=== PATIENT | male | born 1985 | race Caucasian/White ===

== ENCOUNTER 2025-05-19 10:56 | Inpatient (IN) | payer SELFPAY ==
[2025-05-19] VITALS (22 sets, daily range): BP systolic 97–130; BP diastolic 53–90; PULSE 105–126; RESP 17–30; TEMP 36.6–37.5; O2SAT 97–100; BMI 29.1
--- NOTE | ~2025-05-19 | US_ITS ---
EXAMINATION: US scrotum doppler, 05/23/2025 16:00 CDT HISTORY: Scrotal Pain Comparison: None Technique: Herrera-scale and color Doppler images were obtained of the testes with spectral analysis to document arterial and venous flow. Findings: Right Testicle:Right testicle 5.9 x 2.7 x 3.5 cm, normal parenchyma, normal flow. Right Epidiymis:Unremarkable. Normal flow. Left Testicle: Left testicle 5 x 3.2 x 4.3 cm, normal parenchyma, normal flow. Left Epidiymis: Unremarkable. Normal flow. Hydrocele: None . Varicocele: None Scrotum: Unremarkable. No skin thickening. Impression: No acute abnormality. Reviewed, dictated and finalized at location P. Impression: No acute abnormality.
--- NOTE | ~2025-05-19 | CT_ITS ---
CT ABDOMEN AND PELVIS WITHOUT CONTRAST Clinical History: abd pain, nause and vomiting Comparison: None Technique: Unenhanced axial images lung bases to symphysis pubis Coronal, sagittal reformats CT images acquired with automatic exposure control for dose reduction DLP: 1329 mGy-cm Findings: Without intravenous contrast, sensitivity for detecting visceral parenchymal abnormalities decreased. Lung bases: Clear. Visualized heart and pericardium: Unremarkable. Liver: Unremarkable. Gallbladder: Unremarkable. Spleen: Unremarkable. Pancreas: Extensive peripancreatic stranding and fluid. Adrenal glands: Unremarkable. Kidneys: Right kidney- No hydronephrosis. No renal stones. Left kidney- No hydronephrosis. No renal stones. Distal esophagus/stomach: Distal gastric wall thickening. Small bowel loops: Proximal duodenal wall thickening. Colon: Normal caliber and wall thickness. Normal RLQ appendix. Nodes: No enlarged nodes. Peritoneum: No ascites. No free intraperitoneal air. Urinary bladder: Unremarkable. Prostate: Unremarkable. Bones: No acute bony abnormality. Soft tissues: Unremarkable. Unopacified abdominal aorta: No aneurysmal dilatation. IMPRESSION: 1. Severe pancreatitis and/or gastroduodenitis. Reviewed, dictated and finalized at location R.
--- NOTE | ~2025-05-19 | XR_ITS ---
Examination: XR chest 1V portable Clinical History: tachypnea Comparison: None Technique: Portable AP Findings: Heart size mildly enlarged. Lungs clear. No acute bony abnormality. IMPRESSION: 1. No acute cardiopulmonary findings given portable technique. Reviewed, dictated and finalized at location R.
--- NOTE | ~2025-05-19 | XR_ITS ---
EXAMINATION: XR abdomen/kub 1V, 05/21/2025 13:03 CDT HISTORY: Constipation COMPARISON: No comparisons available. Technique: 3 view. Findings: Minimal fecal content, diminished air throughout the bowel which is nonspecific No free air. No abnormal calcifications No acute osseous abnormality. Impression: 1. Nonspecific bowel gas pattern Reviewed, dictated and finalized at location P. Impression: 1. Nonspecific bowel gas pattern
--- NOTE | 2025-05-19 11:00 | ED.RECABL ---
HPI - Recheck/Abnormal Lab/Rx General Chief Complaint: Recheck/Abnormal Lab/Rx Stated Complaint: hyperglycemia, N/V, abd pain History of Present Illness HPI narrative: 39-year-old male with history type 2 diabetes and fatty liver disease presenting to the emergency department via EMS for 4 days of nausea vomiting decreased oral intake and rapid breathing. Patient has had previous episodes like this before and has been hospitalized for DKA. Patient is not insulin-dependent and been trying to control his diabetes with diet. Endorses not feeling well and very thirsty with increased urination increased thirst. Does not take any medications. No abdominal surgical history but is complaining of abdominal pain diffusely. Was otherwise in his normal state of health, he was visiting his family members and in town for [place]. Related Data Allergies Allergy/AdvReac Type Severity Reaction Status Date / Time Cephalosporins Allergy Unknown Verified 07/04/14 09:20 Review of Systems Review of Systems: As reviewed above in HPI [facility] Past Medical History Medical History Thyroid dysfunction HLD (hyperlipidemia) DM2 (diabetes mellitus, type 2) Family History Family History Father Family history of diabetes mellitus in first degree relative Mother Family history of diabetes mellitus in first degree relative Family history of malignant neoplasm of breast in first degree relative Grandparent Family history of lung disease Social History Social History Smoking status: Former smoker Alcohol intake: current Exam Narrative: GENERAL: Ill-appearing, dyspneic, awake and answering questions, thirsty HEAD: Normocephalic, atraumatic EYES: [PERRLA and EOMI.] ENT: Nares clear, no rhinorrhea or epistaxis. Mucous membranes are dry. NECK: Supple. CHEST: Deep [place]maul respirations with tachypnea, no wheezing or rhonchi HEART: Tachycardic rate, regular rhythm. No murmur heard. [Normal peripheral pulses.] ABDOMEN: Mildly distended, soft, tender to palpation diffusely, no rigidity or guarding EXTREMITIES: Normal range of motion. [No edema.] SKIN: Cool extremities but dry, no rashes NEURO: [No focal deficits]. Alert and oriented [x3.] PSYCH: [Normal mood and affect.] Course Vital Signs Vital signs: Vital Signs Temperature 36.6 C 05/19/25 10:58 Pulse Rate 114 H 05/19/25 10:58 Respiratory Rate 20 05/19/25 10:58 Blood Pressure 102/63 05/19/25 10:58 Pulse Oximetry 100 05/19/25 10:58 Oxygen Delivery Room Air 05/19/25 10:58 Temperature 36.6 C 05/19/25 10:58 Pulse Rate 120 H 05/19/25 13:15 Respiratory Rate 27 H 05/19/25 13:15 Blood Pressure 115/68 05/19/25 13:15 Pulse Oximetry 100 05/19/25 13:04 Oxygen Delivery Room Air 05/19/25 10:58 Oxygen Flow Rate 2 05/19/25 13:00 MDM - Recheck/Abnormal Lab/Rx MDM Narrative Medical decision making narrative: 39-year-old male with history type 2 diabetes and fatty liver disease presenting to the emergency department via EMS for 4 days of nausea vomiting decreased oral intake and rapid breathing. Patient has had previous episodes like this before and has been hospitalized for DKA. Patient is not insulin-dependent and been trying to control his diabetes with diet. Endorses not feeling well and very thirsty with increased urination increased thirst. Does not take any medications. No abdominal surgical history but is complaining of abdominal pain diffusely. Was otherwise in his normal state of health, he was visiting his family members and in [facility]. Patient is very ill appearing and has deep Kussmaul respirations and tachypnea with tachycardia. Appears very dry and dehydrated. Suspect DKA versus HHS but his mentation is normal at this time. Placed on cardiac monitoring given supplemental oxygen for comfort. 3 L of fluid initiated given his weight, laboratory studies and VBG, beta hydroxybutyrate and imaging ordered. EKG chest x-ray and CT abdomen pelvis given his abdominal pain. Zofran provided for nausea. Patient's pH is 6.9 with severe metabolic acidosis consistent with DKA. Glucose 798 on the labs. Potassium 7.0 with acute renal failure creatinine 2.7. Patient given total of 4 L of fluid resuscitation between here and EMS. Started on high-dose fluids LR. Insulin given bolus dose with drip and started, Lokelma, calcium gluconate provided. Hemodynamically remained stable. Spoke to Dr. Griffin over the phone regarding patient's renal failure and potassium elevation with concerned that he might require dialysis as he is not making much urine. Recommending repeating labs after fluids and insulin and trending. PH on new VBG after fluids improved to 7.1 and relayed to the trial consultant who will follow in the ICU. Patient is urinating now albeit minimal output. Spoke to the regulatory compliance coordinator Dr. Martinez and the hospitalist Marguerite who accepted the patient to the ICU at this time. CT scan reviewed shows significant fat stranding in the abdomen with possible pancreatitis verses gastroenteritis. No abscess formation. Lipid panel and lipase sent. Patient admitted to the ICU with insulin started. Improved on reassessment. Spoke to family members made them aware of patient's admission and plan of care. Patient updated on the plan and comfortable with admission at this time. Medical Records Attestation: I reviewed the patient's medical records. Lab Data Attestation: I reviewed the patient's lab results. 05/19/25 11:18 05/19/25 11:18 Labs: Lab Results 05/19/25 05/19/25 05/19/25 Range/Units 11:10 11:18 11:48 WBC 9.8 (4.5-10.0) K/mm3 RBC 5.04 (4.6-6.20) M/mm3 Hgb 14.3 (14.0-18.0) g/dL Hct 44.5 (42.0-52.0) % MCV 88.3 (80-100) fl MCH 29.9 (26-34) pg MCHC 34.4 (32-36) g/dl RDW 14.3 (11.5-14.5) % Plt Count 482 H (150-375) k/mm3 MPV 10.1 (7.4-10.4) fl Immature Gran % (Auto) Not Reportable Neut % (Auto) Not Reportable Lymph % (Auto) Not Reportable Gila % (Auto) Not Reportable Eos % (Auto) Not Reportable Baso % (Auto) Not Reportable Lymph # (Auto) Not Reportable Gila # (Auto) Not Reportable Eos # (Auto) Not Reportable Baso # (Auto) Not Reportable Abs Immat Gran (auto) Not Reportable Absolute Neuts (auto) Not Reportable Absolute Nucleated RBC Not Reportable Total Counted 100 Neutrophils % (Manual) 42 L (46-73) % Band Neutrophils % 29 H (0-6) % Lymphocytes % (Manual) 21 (18-44) % Monocytes % (Manual) 8 (3-9) % Nucleated RBC % Not Reportable Abs Neuts (Manual) 6.95 H (1.3-6.7) K/mm3 Abs Lymphs (Manual) 2.05 (1.1-4.5) K/mm3 Abs Monocytes (Manual) 0.78 (0.1-0.90) K/mm3 Platelet Estimate Increased (Adequate) Anisocytosis Occasional Schistocytes None seen Sodium 127 L (137-145) mmol/L Potassium 7.0 H* (3.4-5.0) mmol/L Chloride 93 L (98-107) mmol/L Carbon Dioxide < 5 L (22-30) mmol/L Anion Gap (4-12) mmol/L BUN 20 (9-20) mg/dL Creatinine 2.74 H (0.7-1.3) mg/dL Estim Creat Clear Calc 39 ml/min Estimated GFR 26 L (59 - ) Glucose 798 H* (65-110) mg/dL POC Capillary Glucose > 500 H* (65-105) mg/dl Hemoglobin A1c 11.7 H (<5.7) % Calcium 7.7 L (8.4-10.2) mg/dL Phosphorus 9.1 H (2.5-4.5) mg/dL Magnesium 1.7 (1.6-2.3) mg/dL Total Bilirubin 0.6 (0.2-1.3) mg/dL AST 28 (17-59) U/L ALT 21 (6-50) U/L Alkaline Phosphatase 102 (38-126) U/L Total Protein 7.0 (6.3-8.2) g/dL Albumin 3.7 (3.5-5.1) g/dL Triglycerides (<150) mg/dL Cholesterol (0-200) mg/dL LDL Cholesterol Direct mg/dL HDL Direct Lipase Beta-Hydroxybutyrate/Acetoacetate 8.65 H (0.02-0.27) mmol/L Urine Color Yellow (Yellow) Urine Appearance Cloudy H (Clear) Urine pH 5.0 (5.0-9.0) Ur Specific [place] 1.024 (1.001-1.035) Urine Protein 3+ H (Negative) mg/dL Urine Glucose (UA) 3+ H (Negative) mg/dL Urine Ketones 3+ H (Negative) mg/dL Ur Blood (Man) 2+ H (Negative) Urine Nitrate Negative (Negative) Urine Bilirubin Negative (Negative) Urine Urobilinogen 0.2 (<2.0) mg/dL Add Ur Microanalysis Reviewed Leukocyte Esterase Rfl Negative (Negative) ADELA/UL Urine RBC 0-2 (0-2) /hpf Urine WBC 0-5 (0-3) /hpf Ur Squamous Epith Cells Few (Few) /hpf Urine Bacteria None seen /hpf Urine Casts 6-10 05/19/25 05/19/25 05/19/25 Range/Units 12:26 12:26 12:26 WBC (4.5-10.0) K/mm3 RBC (4.6-6.20) M/mm3 Hgb (14.0-18.0) g/dL Hct (42.0-52.0) % MCV (80-100) fl MCH (26-34) pg MCHC (32-36) g/dl RDW (11.5-14.5) % Plt Count (150-375) k/mm3 MPV (7.4-10.4) fl Immature Gran % (Auto) Neut % (Auto) Lymph % (Auto) Gila % (Auto) Eos % (Auto) Baso % (Auto) Lymph # (Auto) [place]ila # (Auto) Eos # (Auto) Baso # (Auto) Abs Immat Gran (auto) Absolute Neuts (auto) Absolute Nucleated RBC Total Counted Neutrophils % (Manual) (46-73) % Band Neutrophils % (0-6) % Lymphocytes % (Manual) (18-44) % Monocytes % (Manual) (3-9) % Nucleated RBC % Abs Neuts (Manual) (1.3-6.7) K/mm3 Abs Lymphs (Manual) (1.1-4.5) K/mm3 Abs Monocytes (Manual) (0.1-0.90) K/mm3 Platelet Estimate (Adequate) Anisocytosis Schistocytes Sodium Pending (137-145) mmol/L Potassium Pending Cancelled (3.4-5.0) mmol/L Chloride Pending (98-107) mmol/L Carbon Dioxide Pending (22-30) mmol/L Anion Gap Pending (4-12) mmol/L BUN Pending (9-20) mg/dL Creatinine Pending (0.7-1.3) mg/dL Estim Creat Clear Calc Pending ml/min Estimated GFR Pending (59 - ) Glucose Pending (65-110) mg/dL POC Capillary Glucose (65-105) mg/dl Hemoglobin A1c (<5.7) % Calcium Pending (8.4-10.2) mg/dL Phosphorus (2.5-4.5) mg/dL Magnesium (1.6-2.3) mg/dL Total Bilirubin (0.2-1.3) mg/dL AST (17-59) U/L ALT (6-50) U/L Alkaline Phosphatase (38-126) U/L Total Protein (6.3-8.2) g/dL Albumin (3.5-5.1) g/dL Triglycerides > 2625 H (<150) mg/dL Cholesterol 456 H (0-200) mg/dL LDL Cholesterol Direct 100 mg/dL HDL Direct TNP Lipase Pending Cancelled Beta-Hydroxybutyrate/Acetoacetate (0.02-0.27) mmol/L Urine Color (Yellow) Urine Appearance (Clear) Urine pH (5.0-9.0) Ur Specific [place] (1.001-1.035) Urine Protein (Negative) mg/dL Urine Glucose (UA) (Negative) mg/dL Urine Ketones (Negative) mg/dL Ur Blood (Man) (Negative) Urine Nitrate (Negative) Urine Bilirubin (Negative) Urine Urobilinogen (<2.0) mg/dL Add Ur Microanalysis Leukocyte Esterase Rfl (Negative) ADELA/UL Urine RBC (0-2) /hpf Urine WBC (0-3) /hpf Ur Squamous Epith Cells (Few) /hpf Urine Bacteria /hpf Urine Casts ABG Data ABG results: 05/19/25 05/19/25 11:18 12:26 VBG pH 6.969 L* 7.113 L* VBG pCO2 27.8 L* 30.8 L* VBG pO2 < 27.0 L < 27.0 L VBG HCO3 6.2 L 9.6 L O2 Delivery Device Nasal cannula Nasal cannula O2 Liters/Min 2.0 3.0 FiO2 28 32 Attestation: I personally reviewed and interpreted this ABG as follows: Interpretation: Severe metabolic acidosis. Improved on repeat Imaging Data Attestation: I personally reviewed and interpreted this imaging study as follows: My impression: Impressions Chest X-Ray 05/19/25 12:24 IMPRESSION: 1. No acute cardiopulmonary findings given portable technique. Abdomen/Pelvis CT 05/19/25 12:43 IMPRESSION: 1. Severe pancreatitis and/or gastroduodenitis. Critical Care Time Critical Care Time Critical Care Time: Yes Total Critical Care Time: 105 Discharge Plan Discharge Clinical Impression: Hyperkalemia, Hypertriglyceridemia, Pancreatitis, Acute dehydration DKA (diabetic ketoacidosis) Qualifiers: Diabetes mellitus type: type 2 Diabetes mellitus complication detail: without coma Qualified Code(s): E11.10 - Type 2 diabetes mellitus with ketoacidosis without coma HLD (hyperlipidemia) Qualifiers: Hyperlipidemia type: unspecified Qualified Code(s): E78.5 - Hyperlipidemia, unspecified Patient Disposition: Still a Patient Condition: Serious Time of Disposition: 14:03
[2025-05-19] MEDS: ONDANSETRON INJ 4 MG/2 ML VIAL IV PUSH (11:10)
[2025-05-19] MEDS: LACTATED RINGERS 1,000 ML 999 ML IV CONT ×3 (11:11→11:26)
[2025-05-19 11:21] LABS: Fractional Inspired Oxygen 28 %; HCO3 VBG 6.2 mEq/l (24.0-30.0)
[2025-05-19 11:24] LABS: Liters per Minute 2.0 LPM; PCO2 VBG 27.8 mmHg (42.0-48.0); PO2 VBG < 27.0 mmHg (35.0-45.0); pH VBG 6.969 (7.300-7.400)
[2025-05-19 11:25] LABS: Hematocrit 44.5 % (42.0-52.0); Mean Corpuscular Volume 88.3 fl (80-100); Platelet Count Result 482 k/mm3 (150-375); Red Blood Count 5.04 M/mm3 (4.6-6.20); White Blood Count 9.8 K/mm3 (4.5-10.0)
[2025-05-19] MEDS: SODIUM BICARBONATE 8.4% 50 MEQ/50 ML SYRINGE 150 MEQ IV PUSH (11:32)
--- NOTE | 2025-05-19 11:37 | ECG_ITS ---
Test Date: 2025-05-19 12:05:02 Measurements Intervals [place] Rate: 103 P: 57 WV: 145 QRS: 7 QRSD: 98 T: 20 QT: 337 QTc: 441 Interpretive Statements SINUS TACHYCARDIA DELAYED PRECORDIAL R/S TRANSITION CONSIDER INFERIOR INFARCT, AGE INDETERMINATE BASELINE ARTIFACT- III, V3 ABNORMAL ECG No previous ECG available for comparison Electronically Signed On 05-19-2025 14:01:51 CDT by Alcides Jay D.O.
[2025-05-19 11:57] LABS: Hemoglobin 14.3 g/dL (14.0-18.0)
[2025-05-19 11:58] LABS: Anisocytosis Occasional; Band Neutrophils Percent 29 % (0-6); Lymphocytes Absolute Manual 2.05 K/mm3 (1.1-4.5); Lymphocytes Percent Manual 21 % (18-44); Mean Corpuscular HGB Conc 34.4 g/dl (32-36); Mean Corpuscular Hemoglobin 29.9 pg (26-34); Monocytes Absolute Manual 0.78 K/mm3 (0.1-0.90); Monocytes Percent Manual 8 % (3-9); Neutrophils Absolute Manual 6.95 K/mm3 (1.3-6.7); Neutrophils Percent Manual 42 % (46-73); Schistocytes None Seen; Total Cells Counted 100
[2025-05-19 12:01] LABS: Beta-Hydroxybutyrate/Acetoace. 8.65 mmol/L (0.02-0.27)
[2025-05-19 12:02] LABS: Hemoglobin A1C 11.7 % (<5.7)
[2025-05-19 12:12] LABS: Alanine Aminotransferase 21 U/L (6-50); Albumin Level 3.7 g/dL (3.5-5.1); Alkaline Phosphatase 102 U/L (38-126); Aspartate Amino Transferase 28 U/L (17-59); Bilirubin,Total 0.6 mg/dL (0.2-1.3); Blood Urea Nitrogen 20 mg/dL (9-20); Calcium 7.7 mg/dL (8.4-10.2); Carbon Dioxide < 5 mmol/L (22-30); Chloride 93 mmol/L (98-107); Estimated CRCL calculation 39 ml/min; Estimated Glomerular Filt Rate 26; Glucose 798 mg/dL (65-110); Potassium 7.0 mmol/L (3.4-5.0); Sodium 127 mmol/L (137-145); Total Protein 7.0 g/dL (6.3-8.2)
[2025-05-19 12:18] LABS: Magnesium 1.7 mg/dL (1.6-2.3)
[2025-05-19 12:29] LABS: Fractional Inspired Oxygen 32 %; HCO3 VBG 9.6 mEq/l (24.0-30.0)
[2025-05-19 12:29] LABS: Add Urine Microscopic? YES; Appearance Urine Cloudy (Clear); Glucose Urine UA 3+ mg/dL (Negative); Leukocyte Esterase Ur Negative LEU/UL (Negative); Need Manual Microscopic Reviewed; Nitrate Urine Negative (Negative); Specific Grav Ur 1.024 (1.001-1.035)
[2025-05-19 12:30] LABS: pH VBG 7.113 (7.300-7.400)
[2025-05-19 12:31] LABS: Liters per Minute 3.0 LPM; PCO2 VBG 30.8 mmHg (42.0-48.0); PO2 VBG < 27.0 mmHg (35.0-45.0)
[2025-05-19] MEDS: CALCIUM GLUCONATE 1,000 MG/10 ML VIAL 1000 MG IV PUSH (12:45)
[2025-05-19] MEDS: SODIUM ZIRCONIUM CYCLOSILICATE 10 GM POWD.PACK PO (12:46)
[2025-05-19] MEDS: LACTATED RINGERS 1,000 ML 200 ML IV CONT (12:49)
[2025-05-19] MEDS: INSULIN HUMAN REGULAR (*BKC) 100 UNITS/ML 10 UNITS IV PUSH (12:49)
[2025-05-19] MEDS: INSULIN HUMAN REGULAR (*BKC) 100 UNITS in SODIUM CHLORIDE 0.9% IV 99 ML 10.5 UNITS IV CONT (12:51)
--- NOTE | 2025-05-19 13:17 | P.CONIN_ITS ---
Assessment and Plan Assessment and plan (1) DKA (diabetic ketoacidosis): Qualifiers: Diabetes mellitus type: type 2 Diabetes mellitus complication detail: w ithout coma Qualified Code(s): E11.10 - Type 2 diabetes mellitus with ketoacidosis without coma Code(s): E11.10 - Type 2 diabetes mellitus with ketoacidosis without coma Status: Acute Assessment and Plan: 05/19: Patient presented with epigastric tenderness, nausea, vomiting, decreased oral intake for 3-4 days. Recently diagnosed with diabetes about 3 months back, has been controlling his diabetes with diet and holistic approach/homeopathy. Patient was found to be tachycardic, tachypneic, with a blood sugars of 798, potassium of 7.0, creatinine of 2.74 -patient was given a total of 4 L IV fluid bolus (1 L by EMS and 3 L in the ER) -continue insulin infusion per DKA protocol -continue to monitor blood sugars -may need to continue as insulin infusion for his hypertriglyceridemia even if his anion gap closes (2) DM2 (diabetes mellitus, type 2): Qualifiers: Diabetes mellitus halfway insulin use: without bale opener use Diabetes mellitus complication status: with ketoacidosis Diabetes mellitus complication detail: without coma Qualified Code(s): E11.10 - Type 2 diabetes mellitus with ketoacidosis without coma Code(s): E11.9 - Type 2 diabetes mellitus without complications Status: Acute Assessment and Plan: Patient stated that he was diagnosed with diabetes 3-4 months packed -hemoglobin A1c this admission is 11 point -will have paraeducator and dietitian evaluate the patient (3) Hypertriglyceridemia: Code(s): E78.1 - Pure hyperglyceridemia Status: Acute Assessment and Plan: Hypertriglyceridemia with triglycerides have a lot of >2625 -epigastric tenderness, CT scan of the abdomen and pelvis shows severe pancreatitis and/or gastroduodenitis -will continue insulin infusion and IV fluid which will also help the triglyceride level -will add gemfibrozil and statin once pt more stable (4) REGULO (acute kidney injury): Code(s): N17.9 - Acute kidney failure, unspecified Status: Acute Assessment and Plan: Acute kidney injury, likely related to hypovolemia,, inflammatory changes related to pancreatitis -patient received 4 L IV fluid bolus, continue maintenance IV fluids per DKA protocol -will obtain urine electrolyte, eosinophils, CK level -no hydronephrosis noticed on CT abdomen and pelvis -could be related to hypovolemia -continue to monitor renal function, electrolytes and urine output -Nephrology has been consulted (5) Hyperkalemia: Code(s): E87.5 - Hyperkalemia Status: Acute Assessment and Plan: Hyperkalemia likely is multifactorial, acute kidney injury, metabolic ketoacidosis due DKA -initial pH was 6.96, patient received 3 amps of bicarb, Lokelma, insulin and D50 -repeat K levels pending (6) HLD (hyperlipidemia): Qualifiers: Hyperlipidemia type: unspecified Qualified Code(s): E78.5 - Hyperlipidemia, unspecified Code(s): E78.5 - Hyperlipidemia, unspecified Status: Acute Assessment and Plan: Hypertriglyceridemia, elevated cholesterol -Will start statins once more stable (7) Pancreatitis: Code(s): K85.90 - Acute pancreatitis without necrosis or infection, unspecified Status: Acute Assessment and Plan: Acute pancreatitis related to hypertriglyceridemia -patient received a total of 4 L IV fluid bolus -continue aggressive maintenance IV fluids -continue insulin infusion -will check serial triglyceride levels -pain control with Fentanyl given REGULO - will check lactic acid Plan DVT prophylaxis: Heparin Stress ulcer prophylaxis:Protonix Nutrition:NPO Code Status: Full Code Critical Care Time Spent: 49 minutes Due to a high probability of clinically significant, life threatening deterioration, the patient required my highest level of preparedness to intervene emergently and I personally spent this critical care time directly and personally managing the patient. This critical care time included obtaining a history; examining the patient; pulse oximetry; ordering and review of studies; arranging urgent treatment with development of a management plan; evaluation of patient's response to treatment; frequent reassessment; and discussions with other providers. It was exclusive of separately billable procedures and treating other patients and teaching time. Please see Assessment and Plan section and the rest of the note for further information on patient assessment and treatment This dictation may have been done utilizing a voice recognition system. Attempts have been made to correct errors. However, there may be uncorrected grammatical, spelling, and recognitions errors present. 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 Patient was recently diagnosed with diabetes 3 months ago has been controlling his diabetes with diet and homeopathy. He told the ER physician that he was hospitalized for DKA in the past. He also complained of epigastric abdominal pain. He also complains of not being clear in his mind. Denies any alcohol, tobacco or illicit drug use. In the ER he was found to be tachycardic, tachypneic with a pH of 6.96, pCO2 of 27, HC03 6.2 on a VBG. CBC was within normal limits. Sodium 127, potassium 7.0, chloride 93, CO2<5, BUN 20, creatinine 2.74, glucose 798. Hemoglobin A1c of 11.7, calcium 7.7, phosphorus 9.1, magnesium 1.7. LFTs within normal limits. Beta hydroxybutyrate was 8.65 in elevated. UA showed 3+ proteins, 3+ glucose, 3+ ketones and 2+ blood. Chest x-ray with no acute cardiopulmonary finding. According the bedside nurse in the ER patient received 1 L IV fluid bolus with EMS and 3 mL IV fluid bolus in the ED. Was started on insulin infusion per DKA protocol after insulin bolus. He also received 3 amps of bicarb per ER physician. He was also given Lokelma. Patient seen and examined in the ER, is awake, alert,, able to answer questions, has nausea and vomiting along with epigastric pain. Hemodynamically stable, tachycardic. States his mind is not clear. Tachypneic. Patient currently is on insulin infusion, along with IV fluids. Patient's triglycerides 2625, cholesterol 456, LDL 100, HDL 17. When asked, patient denies alcohol, tobacco illicit drug use. Review of Systems 2 Review of Systems: All systems reviewed & are unremarkable except as noted in HPI and below PMFSH Past Medical History Medical History (Updated 05/19/25 @ 14:11 by Laurie Mcdaniels, BELLA) Thyroid dysfunction HLD (hyperlipidemia) DM2 (diabetes mellitus, type 2) Family History Family History Father Family history of diabetes mellitus in first degree relative Mother Family history of diabetes mellitus in first degree relative Family history of malignant neoplasm of breast in first degree relative Grandparent Family history of lung disease Social History Social History Smoking status: Former smoker Alcohol intake: former Substance use: never Lack of Transportation: No Lack of Food: Never True Current Housing: I Have Housing Concerned About Future Housing: No Difficulty Paying Gas/Electric Bills: No Difficulty Paying for Meds: No Currently Unemployed: No Education: Decline to Answer Difficulty w/ Childcare or Family Care: No Spiritual care concerns: No Meds Home Medications and Allergies Allergies Allergy/AdvReac Type Severity Reaction Status Date / Time Cephalosporins Allergy Unknown Swelling Verified 05/19/25 14:13 of Lip/Tongue/Throat Vital Signs Vital Signs - 24 hr 05/19/25 10:58 05/19/25 11:05 05/19/25 11:16 Temperature 97.8 F Pulse Rate 114 H 114 H 114 H Respiratory Rate 20 26 H 26 H Blood Pressure 102/63 102/63 117/76 Pulse Oximetry 100 100 Oxygen Delivery Room Air Oxygen Flow Rate 05/19/25 11:30 05/19/25 11:46 05/19/25 12:00 Temperature Pulse Rate 108 H 109 H 105 H Respiratory Rate 29 H 22 H 24 H Blood Pressure 118/66 97/53 L 115/79 Pulse Oximetry 100 100 Oxygen Delivery Oxygen Flow Rate 05/19/25 12:15 05/19/25 12:45 05/19/25 13:00 Temperature Pulse Rate 105 H Respiratory Rate 17 27 H 25 H Blood Pressure 122/79 126/75 Pulse Oximetry 100 100 Oxygen Delivery Oxygen Flow Rate 2 05/19/25 13:00 Temperature Pulse Rate 116 H Respiratory Rate 23 H Blood Pressure 130/78 Pulse Oximetry 100 Oxygen Delivery Oxygen Flow Rate Exam 2 Narrative: General: Ill-appearing gentleman, HEENT:? Pupils equal and reactive, sclera is clear, moist oral mucous Neck:? Supple Respiratory:?Clear to auscultation bilaterally, no wheezing or rales Cardiac:? Sinus tachycardia Abdomen:? Epigastric tenderness, no rebound, hypoactive bowel sounds, soft, protuberant Extremities:? No edema, palpable pedal pulse Neuro:? Patient is awake, alert, answers to questions appropriately and follows commands Skin:? No skin lesions noted Psych:? Normal orientation, depressed affect Results Labs 05/19/25 11:18 05/19/25 11:18 Labs: Short CBC 05/19/25 Range/Units 11:18 WBC 9.8 (4.5-10.0) K/mm3 Hgb 14.3 (14.0-18.0) g/dL Hct 44.5 (42.0-52.0) % Plt Count 482 H (150-375) k/mm3 BMP 05/19/25 05/19/25 11:18 12:26 Sodium 127 L Potassium 7.0 H* Cancelled Chloride 93 L Carbon Dioxide < 5 L BUN 20 Creatinine 2.74 H Glucose 798 H* Calcium 7.7 L Liver Function 05/19/25 Range/Units 11:18 Total Bilirubin 0.6 (0.2-1.3) mg/dL AST 28 (17-59) U/L ALT 21 (6-50) U/L Alkaline Phosphatase 102 (38-126) U/L Albumin 3.7 (3.5-5.1) g/dL Urine 05/19/25 Range/Units 11:48 Urine Color Yellow (Yellow) Urine Appearance Cloudy H (Clear) Urine pH 5.0 (5.0-9.0) Ur Specific [place] 1.024 (1.001-1.035) Urine Protein 3+ H (Negative) mg/dL Urine Glucose (UA) 3+ H (Negative) mg/dL Quality VTE Prophylaxis VTE prophylaxis: pharmacologic ordered
--- NOTE | 2025-05-19 13:21 | P.HP_ITS ---
H&P: HPI History of Present Illness Date/Time: 05/19/25 13:21 Chief Complaint: Abdominal Pain, Nausea, Vomiting Narrative: 39 y/o M with PMH of DM2, high cholesterol, thyroid dysfunction, and fatty liver secondary to ETOH use presents here with abdominal pain, nausea, and vomiting. The patient presents here from home via EMS on 05/19 for further evaluation of abdominal pain, nausea, and vomiting. ?He reports this has been an intermittent issue for the past few months but has significantly worsened in the last 3-4 days. ?He describes the abdominal pain as diffuse but worse in the upper abdomen near the epigastric region and left upper quadrant. ?He reports associated decreased urinary output, intermittent diarrhea, and fevers. ?He reports a past medical history significant for type 2 non-insulin dependent diabetes, reports a diagnosis 2-3 months ago.? At that time, he was told his A1c her was in the 6 range. ?He is currently trying to manage his diabetes via a diabetic diet. ?He also reports he stopped his cholesterol medication and thyroid medication and has been trying to approach his health in a holistic manner.? His diabetes is managed by his PCP.? Patient arrived to the emergency department with Kussmaul respirations, tachypnea, dry mucous membranes, and tachycardia. Initial VS at presentation: ?97.8? F, HR 114, RR 20, 102/63, and 100% on RA. ED workup showed: ?No leukocytosis, no anemia, ABG showed a pH of 6.969, sodium 127, potassium 7, serum bicarb less than 5, gap not calculable, creatinine 2.74 and GFR 26, glucose 798, A1c 11.7%, beta hydroxy 8.65. ?CXR showed no acute ca rdiopulmonary findings.? UA was cloudy with 3+ protein/glucose/ketones, 2+ blood. 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 ETOH abuse Thyroid dysfunction HLD (hyperlipidemia) DM2 (diabetes mellitus, type 2) Family History Family History Father Family history of diabetes mellitus in first degree relative Mother Family history of diabetes mellitus in first degree relative Family history of malignant neoplasm of breast in first degree relative Grandparent Family history of lung disease Social History Social History Smoking status: Former smoker Alcohol intake: former Substance use: never Lack of Transportation: No Lack of Food: Never True Current Housing: I Have Housing Concerned About Future Housing: No Difficulty Paying Gas/Electric Bills: No Difficulty Paying for Meds: No Currently Unemployed: No Education: Decline to Answer Difficulty w/ Childcare or Family Care: No Spiritual care concerns: No Meds Home Medications and Allergies Allergies Allergy/AdvReac Type Severity Reaction Status Date / Time Cephalosporins Allergy Unknown Swelling Verified 05/19/25 14:13 of Lip/Tongue/Throat Vital Signs Vital Signs - 24 hr 05/19/25 10:58 05/19/25 11:05 05/19/25 11:16 Temperature 97.8 F Pulse Rate 114 H 114 H 114 H Respiratory Rate 20 26 H 26 H Blood Pressure 102/63 102/63 117/76 Pulse Oximetry 100 100 Oxygen Delivery Room Air Oxygen Flow Rate 05/19/25 11:30 05/19/25 11:46 05/19/25 12:00 Temperature Pulse Rate 108 H 109 H 105 H Respiratory Rate 29 H 22 H 24 H Blood Pressure 118/66 97/53 L 115/79 Pulse Oximetry 100 100 Oxygen Delivery Oxygen Flow Rate 05/19/25 12:15 05/19/25 12:45 05/19/25 13:00 Temperature Pulse Rate 105 H Respiratory Rate 17 27 H 25 H Blood Pressure 122/79 126/75 Pulse Oximetry 100 100 Oxygen Delivery Oxygen Flow Rate 2 05/19/25 13:00 Temperature Pulse Rate 116 H Respiratory Rate 23 H Blood Pressure 130/78 Pulse Oximetry 100 Oxygen Delivery Oxygen Flow Rate Exam Const: Other: Patient appears uncomfortable, significantly ill-appearing, bilious emesis on hospital gown, , male. HENMT: Face/Nose/Sinus: Normal nares present Mouth: Yes dry mucous membranes Eyes: General: appearance normal, both eyes and all related structures Sclera: sclerae normal Pupils: Equal, round and reactive pupils present EOM: EOMs intact bilaterally Resp: Effort & Inspection: normal respiratory effort Auscultation: clear to auscultation bilaterally Cardio: Rate: tachycardic (Mild 110-115) Rhythm: regular rhythm Other: S1-S2 present without murmur, rub, ectopy GI: Other: Abdomen rounded, but nondistended. Soft with tenderness in the epigastric region and left upper quadrant region. hypoactive bowel sounds in all quadrants. Skin: General skin exam: normal color and no rashes or lesions noted Wounds: no wounds Neuro: Speech: normal speech Motor exam (neuro): 5/5 motor strength present throughout Sensory Exam: normal sensation Other: A&O x4 Extrem: General: normal to inspection Psych: Mental Status: mental status grossly normal Affect: normal affect Other: Fair insight and judgment H&P: Results Labs Labs: Short CBC 05/19/25 Range/Units 11:18 WBC 9.8 (4.5-10.0) K/mm3 Hgb 14.3 (14.0-18.0) g/dL Hct 44.5 (42.0-52.0) % Plt Count 482 H (150-375) k/mm3 BMP 05/19/25 05/19/25 11:18 12:26 Sodium 127 L Potassium 7.0 H* Cancelled Chloride 93 L Carbon Dioxide < 5 L BUN 20 Creatinine 2.74 H Glucose 798 H* Calcium 7.7 L Liver Function 05/19/25 Range/Units 11:18 Total Bilirubin 0.6 (0.2-1.3) mg/dL AST 28 (17-59) U/L ALT 21 (6-50) U/L Alkaline Phosphatase 102 (38-126) U/L Albumin 3.7 (3.5-5.1) g/dL Urine 05/19/25 Range/Units 11:48 Urine Color Yellow (Yellow) Urine Appearance Cloudy H (Clear) Urine pH 5.0 (5.0-9.0) Ur Specific [place] 1.024 (1.001-1.035) Urine Protein 3+ H (Negative) mg/dL Urine Glucose (UA) 3+ H (Negative) mg/dL Assessment and Plan Assessment and plan (1) DKA (diabetic ketoacidosis): Qualifiers: Diabetes mellitus complication detail: without coma Diabetes mellitus type: type 2 Qualified Code(s): E11.10 - Type 2 diabetes mellitus with ketoacidosis without coma Code(s): E11.10 - Type 2 diabetes mellitus with ketoacidosis without coma Status: Acute Assessment and Plan: History of type 2 diabetes that was reportedly diagnosed 2-3 months ago within A1C in the 6 range.? Has been trying to control via diet. Here with hyperglycemia, Kussmaul respirations, abdominal pain, nausea, vomiting, and tachycardia with decreased urine output. Lab work consistent with DKA - glucose 798, pH 6.969, serum bicarb less than 5, anion gap not calculable, A1c 11.7%, and beta hydroxy 8.65. - VBG showing improvement with insulin, bicarb, and fluids. pH 6.969 -> 7.113, CO2 27.8 -> 30.8. Continue to trend. - trend BMP Q4H, repeat Mag and Phos - DKA protocol initiated - IV fluids: 1L via EMS, 3L bolus in ED. continue IV fluids via a DKA protocol. - insulin gtt initiated on 05/19 - NPO - oil heater operator consulted - white mixing operator consulted - electronics maintenance technician consulted Per ED provider, patient vastly improved and clinical appearance post IV fluids. (2) DM2 (diabetes mellitus, type 2): Qualifiers: Diabetes mellitus complication detail: without coma Diabetes mellitus complication status: with ketoacidosis Diabetes mellitus predatory animal exterminator insulin use: without predatory animal exterminator use Qualified Code(s): E11.10 - Type 2 diabetes mellitus with ketoacidosis without coma Code(s): E11.9 - Type 2 diabetes mellitus without complications Status: Acute Assessment and Plan: Currently complicated by DKA. See above. - honing machine operator and dietitian consulted (3) REGULO (acute kidney injury): Code(s): N17.9 - Acute kidney failure, unspecified Status: Acute Assessment and Plan: Patient denies any previous history of renal dysfunction. Creatinine 2.74, BUN 20, GFR 26 upon admission on 05/19. Given current poor p.o. intake, dry mucous membranes, nausea, and vomiting -> high suspicion for acute dehydration as etiology for patient's REGULO. However, A1c indicates patient's glucose has been poorly controlled for some time. Underlying CKD cannot be excluded. - trial IV fluids over the next 24 hours - check renal ultrasound, urine lytes, CK, eosinophiles - reviewed CT of the abdomen/pelvis from 05/19, no significant renal abnormalities noted - nephrology consulted - trend renal function and electrolytes, correct electrolytes as needed - monitor I&Os (4) Hyperkalemia: Code(s): E87.5 - Hyperkalemia Status: Acute Assessment and Plan: Initial K 7.0. Given 3L bolus, sodium bicarb 150 mEq IVP, calcium gluconate 1 G, Lokelma, insulin 10 units IVP. Repeat currently pending. EKG reviewed, peaked T waves appreciated. - 7.0 -> 4.0 - BMP Q4H - telemetry monitoring (5) Pancreatitis: Qualifiers: Acute pancreatitis complication: no infection or necrosis Chronicity: acute Pancreatitis type: unspecified pancreatitis type Qualified Code(s): K85.90 - Acute pancreatitis without necrosis or infection, unspecified Code(s): K85.90 - Acute pancreatitis without necrosis or infection, unspecified Status: Acute Assessment and Plan: Lipase pending >> [id number]. CT of the abd/pelvis showed severe pancreatitis and/or gastroduodenitis. Triglycerides significantly elevated, likely etiology of patient's current pancreatitis. Patient has history of ETOH use, however he has been sober for the past few months. - started on IV fluids - analgesics p.r.n.: Tylenol and Fentanyl - check lactic - serial triglyceride levels - NPO (6) Gastroduodenitis: Code(s): K29.90 - Gastroduodenitis, unspecified, without bleeding Status: Acute Assessment and Plan: Gastroduodenitis noted on CT of the abdomen/pelvis performed on 05/19. Denies hematemesis, melena, or hematochezia. - start pantoprazole 40 mg b.i.d. (7) HLD (hyperlipidemia): Qualifiers: Hyperlipidemia type: unspecified Qualified Code(s): E78.5 - Hyperlipidemia, unspecified Code(s): E78.5 - Hyperlipidemia, unspecified Status: Acute Assessment and Plan: Reports his LDL to triglyceride ratio has improved with diet control. Unclear how long he has been off his statin and has been trying to treat with diet. - check lipid panel >> triglycerides >2625 - patient had epigastric/LUQ tenderness on exam. CT of the abd/pelvis showing severe pancreatitis and/or gastroduodenitis. - started on insulin gtt and IV fluids, should improve triglyceride levels. plan for serial triglycerides levels (8) Thyroid dysfunction: Code(s): E07.9 - Disorder of thyroid, unspecified Status: Acute Assessment and Plan: Patient reported history of thyroid dysfunction and is currently office thyroid medication. He has been attempting to treat his thyroid dysfunction holistically. - check TSH with reflex. Plan Diet: NPO GI Prophylaxis: Pantoprazole IV DVT Prophylaxis: Lovenox IV fluids: 1L EMS, 3L bolus ED -> DKA protocol fluids Lines/Tubes: Peripheral IV Code Status: Full code Critical Care Time: I personally spent 60 minutes of direct patient care including (but not limited to) the physical examination, decision-making, bedside evaluation, review of medical records, review of labs and imaging, discussion with nursing staff and other providers for collaborative, critical care management of this patient. Quality VTE Prophylaxis VTE prophylaxis: pharmacologic ordered Hospitalist [facility] Advance Care Plan I have confirmed that the patient's Advanced Care Plan is present, code status is documented, or surrogate decision maker is listed in patient medical record.: Yes Medication Reconciliation I have utilized all available resources to obtain, update and review the patients current medications (includes all prescriptions, OTC, herbals, cannabis, and nutritional supplements).: Yes
[2025-05-19 13:35] LABS: Cholesterol 456 mg/dL (0-200)
[2025-05-19 13:47] LABS: Triglycerides > 2625 mg/dL (<150)
--- NOTE | 2025-05-19 13:54 | PC.NURSE ---
This patient, Azael Marinelli, was admitted to Intensive Care Unit-3. Patient/family oriented to hospital policies and general routines including ID bracelet, bed and alarms, visiting hours, pain management, procedures, bathroom and other care routines, personal items, smoking policy, room service/diet, and visiting hours. Information on how to activate the Rapid Response Team has been discussed. Patient/Family are encouraged to report perceived risks to care and to ask questions if they do not understand what they are told or what they should do.
[2025-05-19 14:10] LABS: Creatine Kinase 35 U/L (55-170)
[2025-05-19 14:16] LABS: Blood Urea Nitrogen 20 mg/dL (9-20); Calcium 7.6 mg/dL (8.4-10.2); Carbon Dioxide < 5 mmol/L (22-30); Chloride 101 mmol/L (98-107); Estimated CRCL calculation 45 ml/min; Estimated Glomerular Filt Rate 39; Glucose 661 mg/dL (65-110); Potassium 4.0 mmol/L (3.4-5.0); Sodium 132 mmol/L (137-145)
[2025-05-19 14:17] LABS: Thyroid Stimulating Hormone Reflex 5.580 uIU/mL (0.465-4.68)
[2025-05-19 14:25] LABS: Lipase 15776 U/L (23-300)
[2025-05-19 14:42] LABS: Free T4 Free Thyroxine Reflex 0.99 ng/dL (0.78-2.19)
[2025-05-19] MEDS: SODIUM CHLORIDE 0.9% IV 1,000 ML 150 ML IV CONT ×2 (14:45→21:06)
[2025-05-19 14:51] LABS: MRSA (PCR) NOT DETECTED (NOT DETECTE)
[2025-05-19 16:19] LABS: Total Triiodothyronine (T3) 0.56 NG/ML (0.82-1.58)
[2025-05-19 16:32] LABS: Urine Eos QC 2nd Tech Confirmed
[2025-05-19] MEDS: INSULIN HUMAN REGULAR (*BKC) 100 UNITS in SODIUM CHLORIDE 0.9% IV 99 ML 20 UNITS IV CONT (19:25)
[2025-05-19 21:50] LABS: Anion Gap 15 mmol/L (4-12); Blood Urea Nitrogen 23 mg/dL (9-20); Calcium 7.3 mg/dL (8.4-10.2); Carbon Dioxide 11 mmol/L (22-30); Chloride 106 mmol/L (98-107); Estimated CRCL calculation 62 ml/min; Estimated Glomerular Filt Rate 58; Glucose 402 mg/dL (65-110); Potassium 3.7 mmol/L (3.4-5.0)
[2025-05-19 21:52] LABS: Sodium 132 mmol/L (137-145)
[2025-05-20] VITALS (27 sets, daily range): BP systolic 115–142; BP diastolic 76–100; PULSE 100–121; RESP 18–28; TEMP 36.3–38.2; O2SAT 93–99; BMI 30.1
[2025-05-20] MEDS: INSULIN HUMAN REGULAR (*BKC) 100 UNITS in SODIUM CHLORIDE 0.9% IV 99 ML 20 UNITS IV CONT (00:31)
[2025-05-20 00:52] LABS: Triglycerides 1662 mg/dL (<150)
--- NOTE | 2025-05-20 01:30 | PCRCNOTE ---
Lab unable to obtain venous sample due to too much fat in patient's blood.
[2025-05-20 02:02] LABS: Triglycerides 2573 mg/dL (<150)
[2025-05-20] MEDS: KCL 20 MEQ/D5/0.45% SOD CHL 1,000 ML 150 ML IV CONT ×3 (03:52→17:41)
[2025-05-20] MEDS: INSULIN HUMAN REGULAR (*BKC) 100 UNITS in SODIUM CHLORIDE 0.9% IV 99 ML 14 UNITS IV CONT (05:04)
[2025-05-20 05:30] LABS: Hematocrit 37.5 % (42.0-52.0); Hemoglobin 13.3 g/dL (14.0-18.0); Immature Granulocyte Percent A 0.5 % (0-0.5); Lymphocytes Absolute Auto 0.85 K/mm3 (0.9-3.2); Mean Corpuscular HGB Conc 35.5 g/dl (32-36); Mean Corpuscular Hemoglobin 29.0 pg (26-34); Mean Corpuscular Volume 81.9 fl (80-100); Nucleated Red Blood Cells Absolute Auto 0.040 K/mm3 (0.0-0.012); Nucleated Red Blood Cells Perc 0.7 % (0.0-0.2); Platelet Count Result 287 k/mm3 (150-375); Red Blood Count 4.58 M/mm3 (4.6-6.20); White Blood Count 5.8 K/mm3 (4.5-10.0)
[2025-05-20 07:14] LABS: Triglycerides > 2625 mg/dL (<150)
[2025-05-20 07:24] LABS: Alanine Aminotransferase 199 U/L (6-50); Albumin Level 2.9 g/dL (3.5-5.1); Alkaline Phosphatase 319 U/L (38-126); Anion Gap 11 mmol/L (4-12); Aspartate Amino Transferase 338 U/L (17-59); Bilirubin,Total 2.9 mg/dL (0.2-1.3); Blood Urea Nitrogen 25 mg/dL (9-20); Calcium 7.3 mg/dL (8.4-10.2); Carbon Dioxide 16 mmol/L (22-30); Chloride 109 mmol/L (98-107); Estimated CRCL calculation 74 ml/min; Estimated Glomerular Filt Rate > 60; Glucose 178 mg/dL (65-110); Magnesium 1.8 mg/dL (1.6-2.3); Potassium 2.9 mmol/L (3.4-5.0); Sodium 136 mmol/L (137-145); Total Protein 6.4 g/dL (6.3-8.2)
[2025-05-20] MEDS: PANTOPRAZOLE SODIUM IV 40 MG VIAL IV PUSH ×2 (08:50→21:56)
[2025-05-20] MEDS: CALCIUM GLUC 2,000 MG/NS 100ML 2,000 MG/100 ML BAG 100 MG IVPB ×2 (08:50→14:01)
[2025-05-20] MEDS: ONDANSETRON INJ 4 MG/2 ML VIAL IV PUSH (08:50)
[2025-05-20] MEDS: POTASSIUM CHLORIDE 20 MEQ ER TABLET 40 MEQ PO (08:50)
[2025-05-20] MEDS: MAGNESIUM SULF 2 GM/WATER 50ML 2 GM/50 ML BAG IVPB (09:06)
[2025-05-20] MEDS: POTASSIUM PHOS,M-BASIC-D-BASIC 20 MMOL in SODIUM CHLORIDE 0.9% IV 250 ML 64.17 MMOL IVPB (09:23)
--- NOTE | 2025-05-20 09:39 | P.PNINT_ITS ---
Progress Note: A&P Assessment and Plan (1) DKA (diabetic ketoacidosis): Qualifiers: Diabetes mellitus type: type 2 Diabetes mellitus complication detail: without coma Qualified Code(s): E11.10 - Type 2 diabetes mellitus with ketoacidosis without coma Code(s): E11.10 - Type 2 diabetes mellitus with ketoacidosis without coma Status: Acute Assessment and Plan: 05/19: Patient presented with epigastric tenderness, nausea, vomiting, decreased oral intake for 3-4 days. Recently diagnosed with diabetes about 3 months back, has been controlling his diabetes with diet and holistic approach/homeopathy. Patient was found to be tachycardic, tachypneic, with a blood sugars of 798, potassium of 7.0, creatinine of 2.74 Patient was treated with IV insulin IV fluids. His anion gap has closed but IV insulin be continued for hypertriglyceridemia. NPO except ice chips and water at this time due to pancreatitis and hypertriglyceridemia Patient will be transition to subcutaneous insulin once triglyceride levels are improved (2) DM2 (diabetes mellitus, type 2): Qualifiers: Diabetes mellitus keno terminal operator insulin use: without senior care use Diabetes mellitus complication status: with ketoacidosis Diabetes mellitus complication detail: without coma Qualified Code(s): E11.10 - Type 2 diabetes mellitus with ketoacidosis without coma Code(s): E11.9 - Type 2 diabetes mellitus without complications Status: Acute Assessment and Plan: Patient stated that he was diagnosed with diabetes 3-4 months packed -hemoglobin A1c this admission is 11.7 -will have cosmetology educator and dietitian evaluate the patient (3) Hypertriglyceridemia: Code(s): E78.1 - Pure hyperglyceridemia Status: Acute Assessment and Plan: Hypertriglyceridemia with triglycerides have a lot of >2625 Likely the cause of his pancreatitis He is clinically improved and feels better. I will continue with IV insulin infusion and IV fluids with dextrose Continue monitor triglyceride levels Keep him NPO except water and ice chips for now -will add gemfibrozil and statin once pt more stable (4) REGULO (acute kidney injury): Code(s): N17.9 - Acute kidney failure, unspecified Status: Acute Assessment and Plan: Acute kidney injury, likely related to hypovolemia,, inflammatory changes related to pancreatitis -patient received 4 L IV fluid bolus and is on maintenance IV fluids -creatinine has improved and is down in normal range -no hydronephrosis noticed on CT abdomen and pelvis -continue to monitor renal function, electrolytes and urine output (5) Hyperkalemia: Code(s): E87.5 - Hyperkalemia Status: Acute Assessment and Plan: Hyperkalemia likely is multifactorial, acute kidney injury, metabolic ketoacidosis due DKA -initial pH was 6.96, patient received 3 amps of bicarb, Lokelma, insulin and D50 -patient now hypokalemic (6) HLD (hyperlipidemia): Qualifiers: Hyperlipidemia type: unspecified Qualified Code(s): E78.5 - Hyperlipidemia, unspecified Code(s): E78.5 - Hyperlipidemia, unspecified Status: Acute Assessment and Plan: Hypertriglyceridemia, elevated cholesterol -Will start statins once more stable (7) Pancreatitis: Qualifiers: Acute pancreatitis complication: no infection or necrosis Chronicity: acute Pancreatitis type: unspecified pancreatitis type Qualified Code(s): K85.90 - Acute pancreatitis without necrosis or infection, unspecified Code(s): K85.90 - Acute pancreatitis without necrosis or infection, unspecified Status: Acute Assessment and Plan: Acute pancreatitis related to hypertriglyceridemia Continue IV fluid NPO Pain control (8) Electrolyte abnormality: Code(s): E87.8 - Other disorders of electrolyte and fluid balance, not elsewhere classified Status: Acute Assessment and Plan: Calcium replacement ordered Avoid insulin drip and will replace potassium and phosphorous and restart insulin drip in 2 hours. Magnesium replacement ordered Monitor electrolytes Plan DVT prophylaxis: Heparin Stress ulcer prophylaxis:Protonix Nutrition:NPO Code Status: Full Code Critical Care Time Spent: 30 minutes Due to a high probability of clinically significant, life threatening deterioration, the patient required my highest level of preparedness to intervene emergently and I personally spent this critical care time directly and personally managing the patient. This critical care time included obtaining a history; examining the patient; pulse oximetry; ordering and review of studies; arranging urgent treatment with development of a management plan; evaluation of patient's response to treatment; frequent reassessment; and discussions with other providers. It was exclusive of separately billable procedures and treating other patients and teaching time. Please see Assessment and Plan section and the rest of the note for further information on patient assessment and treatment This dictation may have been done utilizing a voice recognition system. Attempts have been made to correct errors. However, there may be uncorrected grammatical, spelling, and recognitions errors present. Subjective Date/time seen: 05/20/25 He states overall he feels significantly better but is complaining of dry mouth and feeling thirsty. He is requesting water and ice chips. He states his abdominal pain has significantly improved and is down to 3/10. Abdominal pain is worse only with deep breathing. He states he had some dry heaving overnight but denies any nausea at this time. No vomiting. He states he is passing gas and feels that he is going to have a bowel movement today. All other systems were reviewed and were negative. Continues to be insulin infusion. Continues to be on IV fluids with dextrose. Review of Systems Review of Systems: All systems reviewed & are unremarkable except as noted in HPI and below Exam Narrative: General: Ill-appearing gentleman, HEENT:? Pupils equal and reactive, sclera is clear, moist oral mucous Neck:? Supple Respiratory:?Clear to auscultation bilaterally, no wheezing or rales Cardiac:? Sinus tachycardia Abdomen:? Mild Epigastric tenderness, no rebound, present bowel sounds, soft, protuberant obese Extremities:? No edema, palpable pedal pulse Neuro:? Patient is awake, alert, answers to questions appropriately and follows commands Skin:? No skin lesions noted Psych:? Normal orientation, depressed affect Objective Data Vital Signs Vital Signs: Vital Signs - 24 hr 05/19/25 10:58 05/19/25 11:05 05/19/25 11:16 Temperature 36.6 C Pulse Rate 114 H 114 H 114 H Respiratory Rate 20 26 H 26 H Blood Pressure 102/63 102/63 117/76 Pulse Oximetry 100 100 Oxygen Delivery Room Air Oxygen Flow Rate 05/19/25 11:30 05/19/25 11:46 05/19/25 12:00 Temperature Pulse Rate 108 H 109 H 105 H Respiratory Rate 29 H 22 H 24 H Blood Pressure 118/66 97/53 L 115/79 Pulse Oximetry 100 100 Oxygen Delivery Oxygen Flow Rate 05/19/25 12:15 05/19/25 12:45 05/19/25 13:00 Temperature Pulse Rate 105 H Respiratory Rate 17 27 H 25 H Blood Pressure 122/79 126/75 Pulse Oximetry 100 100 Oxygen Delivery Oxygen Flow Rate 2 05/19/25 13:00 05/19/25 13:04 05/19/25 13:15 Temperature Pulse Rate 116 H 117 H 120 H Respiratory Rate 23 H 25 H 27 H Blood Pressure 130/78 122/69 115/68 Pulse Oximetry 100 100 Oxygen Delivery Oxygen Flow Rate 05/19/25 14:06 05/19/25 15:00 05/19/25 15:23 Temperature 36.6 C Pulse Rate 119 H 114 H Respiratory Rate 26 H 27 H Blood Pressure 115/66 128/83 Pulse Oximetry 98 99 99 Oxygen Delivery Nasal Cannula Oxygen Flow Rate 2 05/19/25 16:00 05/19/25 16:00 05/19/25 17:00 Temperature 36.7 C Pulse Rate 121 H 120 H 120 H Respiratory Rate 28 H 30 H Blood Pressure 112/80 120/83 Pulse Oximetry 100 99 Oxygen Delivery Oxygen Flow Rate 05/19/25 18:00 05/19/25 18:00 05/19/25 19:00 Temperature Pulse Rate 125 H 125 H 121 H Respiratory Rate 25 H 24 H Blood Pressure 102/76 116/77 Pulse Oximetry 98 98 Oxygen Delivery Oxygen Flow Rate 05/19/25 20:00 05/19/25 20:00 05/19/25 20:00 Temperature 36.7 C Pulse Rate 124 H 126 H Respiratory Rate 30 H Blood Pressure 120/90 Pulse Oximetry 98 98 Oxygen Delivery Nasal Cannula Oxygen Flow Rate 1 05/19/25 21:00 05/19/25 22:00 05/19/25 22:00 Temperature 36.7 C Pulse Rate 126 H 122 H 122 H Respiratory Rate 21 H 28 H Blood Pressure 129/88 119/88 Pulse Oximetry 98 98 Oxygen Delivery Oxygen Flow Rate 05/19/25 23:00 05/20/25 00:00 05/20/25 00:00 Temperature 37.5 C 38.2 C H Pulse Rate 122 H 120 H Respiratory Rate 25 H 21 H Blood Pressure 114/89 124/79 Pulse Oximetry 97 95 97 Oxygen Delivery Nasal Cannula Oxygen Flow Rate 1 05/20/25 00:00 05/20/25 01:00 05/20/25 02:00 Temperature Pulse Rate 121 H 115 H 118 H Respiratory Rate 28 H Blood Pressure 128/79 Pulse Oximetry 97 Oxygen Delivery Oxygen Flow Rate 05/20/25 02:00 05/20/25 03:00 05/20/25 04:00 Temperature 37.9 C H Pulse Rate 118 H 114 H 112 H Respiratory Rate 20 27 H Blood Pressure 132/84 133/86 Pulse Oximetry 95 96 Oxygen Delivery Oxygen Flow Rate 05/20/25 04:00 05/20/25 04:00 05/20/25 05:00 Temperature 36.3 C L Pulse Rate 112 H 109 H Respiratory Rate 20 21 H Blood Pressure 126/100 H 137/76 Pulse Oximetry 97 97 97 Oxygen Delivery Room Air Oxygen Flow Rate 05/20/25 06:00 05/20/25 06:00 05/20/25 07:00 Temperature 37.3 C Pulse Rate 106 H 106 H 103 H Respiratory Rate 20 23 H Blood Pressure 117/86 131/83 Pulse Oximetry 96 95 Oxygen Delivery Oxygen Flow Rate 05/20/25 07:42 05/20/25 08:00 05/20/25 08:37 Temperature 36.4 C Pulse Rate 103 H Respiratory Rate 20 Blood Pressure 120/84 Pulse Oximetry 96 99 98 Oxygen Delivery Room Air Room Air Oxygen Flow Rate 05/20/25 08:55 Temperature 36.4 C Pulse Rate 110 H Respiratory Rate 22 H Blood Pressure 129/87 Pulse Oximetry 96 Oxygen Delivery Oxygen Flow Rate Intake/Output Intake/Output: Intake & Output 05/17/25 05/18/25 05/19/25 05/20/25 23:59 23:59 23:59 23:59 Intake Total 4510.8 1920.9 Output Total 1925 300 Balance 2585.8 1620.9 Meds/Results Medications: Active Medications Generic Name Dose Route Start Last Admin Trade Name Freq PRN Reason Stop Dose Admin Acetaminophen 650 mg 05/19/25 12:55 Acetaminophen 325 Mg Tablet PO Q4H PRN Mild Pain (1-3) or Fever Dextrose 12.5 gm 05/19/25 12:14 Dextrose 50% 25 Gm/50 Ml Syringe IV PUSH PRN PRN Hypoglycemia Protocol Fentanyl Citrate 25 mcg 05/19/25 14:14 Fentanyl Citrate Inj (*Crx) 100 Mcg/2 Ml Vial IV PUSH Q3H PRN Pain Rated 6 or Greater Glucagon 1 mg 05/19/25 12:14 Glucagon For Inj 1 Mg Vial IM PRN PRN Hypoglycemia Protocol Glucose 15 gm 05/19/25 12:14 Glucose Oral Gel 15 Gm Of Glucse In 37.5 Gm Tube PO PRN PRN Hypoglycemia Protocol Heparin Sodium (Porcine) 5,000 units 05/19/25 22:00 05/20/25 05:32 Heparin Sodium 5,000 Units/Ml Vial SUB-Q 5,000 units Q8HR BEBETO Administration Insulin Human Regular 100 100 mls @ 0 mls/hr 05/19/25 12:15 05/20/25 08:38 units/ Sodium Chloride IV CONT 0 units/hr .Q0M BEBETO 0 mls/hr Protocol Titration 0 UNITS/HR Dextrose 1,000 mls @ 100 mls/hr 05/19/25 12:14 Dextrose 5% 1,000 Ml IVPB PRN PRN Hypoglycemia Protocol Potassium Chloride/Dextrose/Sod Cl 1,000 mls @ 150 mls/hr 05/19/25 14:35 05/20/25 09:00 Kcl 20 Meq/D5/0.45% Sod Chl IV CONT 150 mls/hr .Q6H40M BEBETO Infusion Dextrose/Sodium Chloride 1,000 mls @ 150 mls/hr 05/19/25 14:35 Dextrose 5% Sodium Chloride 0.45% IV CONT .Q6H40M BEBETO Calcium Gluconate 2,000 mg in 100 mls @ 100 mls/hr 05/20/25 09:00 05/20/25 08:50 Calcium Gluc 2,000 Mg/Ns 100ml IVPB 05/20/25 09:59 100 mls/hr ONCE ONE Administration Potassium Phosphate 20 mmol/ 256.6667 mls @ 64.167 mls/hr 05/20/25 09:00 05/20/25 09:23 Sodium Chloride IVPB 05/20/25 12:59 64.17 mls/hr ONCE ONE Administration Magnesium Sulfate 2 gm in 50 mls @ 25 mls/hr 05/20/25 09:15 05/20/25 09:06 Magnesium Sulf 2 Gm/Water 50ml IVPB 05/20/25 11:14 25 mls/hr ONCE ONE Administration Ondansetron HCl 4 mg 05/19/25 12:55 05/20/25 08:50 Ondansetron Inj 4 Mg/2 Ml Vial IV PUSH 4 mg Q4H PRN Administration Nausea Pantoprazole Sodium 40 mg 05/20/25 09:00 05/20/25 08:50 Pantoprazole Sodium Iv 40 Mg Vial IV PUSH 40 mg Q12H BEBETO Administration Radiology Results: ITS Impressions Chest X-Ray 05/19/25 12:24 IMPRESSION: 1. No acute cardiopulmonary findings given portable technique. Abdomen/Pelvis CT 05/19/25 12:43 IMPRESSION: 1. Severe pancreatitis and/or gastroduodenitis. Labs Labs: Laboratory Results - last 24 hr 05/19/25 05/19/25 05/19/25 11:10 11:18 11:48 WBC 9.8 RBC 5.04 Hgb 14.3 Hct 44.5 MCV 88.3 MCH 29.9 MCHC 34.4 RDW 14.3 Plt Count 482 H MPV 10.1 Immature Gran % (Auto) Not Reportable Neut % (Auto) Not Reportable Lymph % (Auto) Not Reportable [place] % (Auto) Not Reportable Eos % (Auto) Not Reportable Baso % (Auto) Not Reportable Lymph # (Auto) Not Reportable [place] # (Auto) Not Reportable Eos # (Auto) Not Reportable Baso # (Auto) Not Reportable Abs Immat Gran (auto) Not Reportable Absolute Neuts (auto) Not Reportable Absolute Nucleated RBC Not Reportable Total Counted 100 Neutrophils % (Manual) 42 L Band Neutrophils % 29 H Lymphocytes % (Manual) 21 Monocytes % (Manual) 8 Nucleated RBC % Not Reportable Abs Neuts (Manual) 6.95 H Abs Lymphs (Manual) 2.05 Abs Monocytes (Manual) 0.78 Platelet Estimate Increased Anisocytosis Occasional Schistocytes None seen VBG pH 6.969 L* VBG pCO2 27.8 L* VBG pO2 < 27.0 L VBG HCO3 6.2 L O2 Delivery Device Nasal cannula O2 Liters/Min 2.0 FiO2 28 Sodium 127 L Potassium 7.0 H* Chloride 93 L Carbon Dioxide < 5 L Anion Gap BUN 20 Creatinine 2.74 H Estim Creat Clear Calc 39 Estimated GFR 26 L Glucose 798 H* POC Capillary Glucose > 500 H* Hemoglobin A1c 11.7 H Lactic Acid Calcium 7.7 L Phosphorus 9.1 H Magnesium 1.7 Total Bilirubin 0.6 AST 28 ALT 21 Alkaline Phosphatase 102 Total Creatine Kinase Total Protein 7.0 Albumin 3.7 Triglycerides Cholesterol LDL Cholesterol Direct HDL Direct Lipase Beta-Hydroxybutyrate/Acetoacetate 8.65 H TSH (Reflex) Free T4 Total T3 Urine Color Yellow Urine Appearance Cloudy H Urine pH 5.0 Ur Specific [place] 1.024 Urine Protein 3+ H Urine Glucose (UA) 3+ H Urine Ketones 3+ H Ur Blood (Man) 2+ H Urine Nitrate Negative Urine Bilirubin Negative Urine Urobilinogen 0.2 Add Ur Microanalysis Reviewed Leukocyte Esterase Rfl Negative Urine RBC 0-2 Urine WBC 0-5 Ur Squamous Epith Cells Few Urine Bacteria None seen Urine Casts 6-10 Urine Eosinophils Ur Random Sodium Ur Random Potassium Urine Creatinine Nasal MRSA (PCR) 05/19/25 05/19/25 05/19/25 12:26 12:26 12:26 WBC RBC Hgb Hct MCV MCH MCHC RDW Plt Count MPV Immature Gran % (Auto) Neut % (Auto) Lymph % (Auto) [place] % (Auto) Eos % (Auto) Baso % (Auto) Lymph # (Auto) [place] # (Auto) Eos # (Auto) Baso # (Auto) Abs Immat Gran (auto) Absolute Neuts (auto) Absolute Nucleated RBC Total Counted Neutrophils % (Manual) Band Neutrophils % Lymphocytes % (Manual) Monocytes % (Manual) Nucleated RBC % Abs Neuts (Manual) Abs Lymphs (Manual) Abs Monocytes (Manual) Platelet Estimate Anisocytosis Schistocytes VBG pH 7.113 L* VBG pCO2 30.8 L* VBG pO2 < 27.0 L VBG HCO3 9.6 L O2 Delivery Device Nasal cannula O2 Liters/Min 3.0 FiO2 32 Sodium 132 L Potassium 4.0 Cancelled Chloride 101 Carbon Dioxide < 5 L Anion Gap BUN 20 Creatinine 1.90 H Estim Creat Clear Calc 45 Estimated GFR 39 L Glucose 661 H* POC Capillary Glucose Hemoglobin A1c Lactic Acid Calcium 7.6 L Phosphorus Magnesium Total Bilirubin AST ALT Alkaline Phosphatase Total Creatine Kinase 35 L Total Protein Albumin Triglycerides > 2625 H Cholesterol 456 H LDL Cholesterol Direct 100 HDL Direct TNP Lipase 15498 H Cancelled Beta-Hydroxybutyrate/Acetoacetate TSH (Reflex) Free T4 Total T3 Urine Color Urine Appearance Urine pH Ur Specific [place] Urine Protein Urine Glucose (UA) Urine Ketones Ur Blood (Man) Urine Nitrate Urine Bilirubin Urine Urobilinogen Add Ur Microanalysis Leukocyte Esterase Rfl Urine RBC Urine WBC Ur Squamous Epith Cells Urine Bacteria Urine Casts Urine Eosinophils Ur Random Sodium Ur Random Potassium Urine Creatinine Nasal MRSA (PCR) 05/19/25 05/19/25 05/19/25 13:33 13:34 14:03 WBC RBC Hgb Hct MCV MCH MCHC RDW Plt Count MPV Immature Gran % (Auto) Neut % (Auto) Lymph % (Auto) [place] % (Auto) Eos % (Auto) Baso % (Auto) Lymph # (Auto) [place] # (Auto) Eos # (Auto) Baso # (Auto) Abs Immat Gran (auto) Absolute Neuts (auto) Absolute Nucleated RBC Total Counted Neutrophils % (Manual) Band Neutrophils % Lymphocytes % (Manual) Monocytes % (Manual) Nucleated RBC % Abs Neuts (Manual) Abs Lymphs (Manual) Abs Monocytes (Manual) Platelet Estimate Anisocytosis Schistocytes VBG pH VBG pCO2 VBG pO2 VBG HCO3 O2 Delivery Device O2 Liters/Min FiO2 Sodium Potassium Chloride Carbon Dioxide Anion Gap BUN Creatinine Estim Creat Clear Calc Estimated GFR Glucose POC Capillary Glucose > 500 H* > 500 H* Hemoglobin A1c Lactic Acid Calcium Phosphorus Magnesium Total Bilirubin AST ALT Alkaline Phosphatase Total Creatine Kinase Total Protein Albumin Triglycerides Cholesterol LDL Cholesterol Direct HDL Direct Lipase Beta-Hydroxybutyrate/Acetoacetate TSH (Reflex) 5.580 H Free T4 0.99 Total T3 0.56 L Urine Color Urine Appearance Urine pH Ur Specific [place] Urine Protein Urine Glucose (UA) Urine Ketones Ur Blood (Man) Urine Nitrate Urine Bilirubin Urine Urobilinogen Add Ur Microanalysis Leukocyte Esterase Rfl Urine RBC Urine WBC Ur Squamous Epith Cells Urine Bacteria Urine Casts Urine Eosinophils Ur Random Sodium Ur Random Potassium Urine Creatinine Nasal MRSA (PCR) Not detected 05/19/25 05/19/25 05/19/25 14:41 14:58 16:02 WBC RBC Hgb Hct MCV MCH MCHC RDW Plt Count MPV Immature Gran % (Auto) Neut % (Auto) Lymph % (Auto) [place] % (Auto) Eos % (Auto) Baso % (Auto) Lymph # (Auto) [place] # (Auto) Eos # (Auto) Baso # (Auto) Abs Immat Gran (auto) Absolute Neuts (auto) Absolute Nucleated RBC Total Counted Neutrophils % (Manual) Band Neutrophils % Lymphocytes % (Manual) Monocytes % (Manual) Nucleated RBC % Abs Neuts (Manual) Abs Lymphs (Manual) Abs Monocytes (Manual) Platelet Estimate Anisocytosis Schistocytes VBG pH VBG pCO2 VBG pO2 VBG HCO3 O2 Delivery Device O2 Liters/Min FiO2 Sodium Potassium Chloride Carbon Dioxide Anion Gap BUN Creatinine Estim Creat Clear Calc Estimated GFR Glucose POC Capillary Glucose > 500 H* > 500 H* Hemoglobin A1c Lactic Acid Calcium Phosphorus Magnesium Total Bilirubin AST ALT Alkaline Phosphatase Total Creatine Kinase Total Protein Albumin Triglycerides Cholesterol LDL Cholesterol Direct HDL Direct Lipase Beta-Hydroxybutyrate/Acetoacetate TSH (Reflex) Free T4 Total T3 Urine Color Urine Appearance Urine pH Ur Specific [place] Urine Protein Urine Glucose (UA) Urine Ketones Ur Blood (Man) Urine Nitrate Urine Bilirubin Urine Urobilinogen Add Ur Microanalysis Leukocyte Esterase Rfl Urine RBC Urine WBC Ur Squamous Epith Cells Urine Bacteria Urine Casts Urine Eosinophils None seen Ur Random Sodium 20 Ur Random Potassium 39.3 Urine Creatinine 41.0 Nasal MRSA (PCR) 05/19/25 05/19/25 05/19/25 16:57 16:59 17:03 WBC RBC Hgb Hct MCV MCH MCHC RDW Plt Count MPV Immature Gran % (Auto) Neut % (Auto) Lymph % (Auto) [place] % (Auto) Eos % (Auto) Baso % (Auto) Lymph # (Auto) [place] # (Auto) Eos # (Auto) Baso # (Auto) Abs Immat Gran (auto) Absolute Neuts (auto) Absolute Nucleated RBC Total Counted Neutrophils % (Manual) Band Neutrophils % Lymphocytes % (Manual) Monocytes % (Manual) Nucleated RBC % Abs Neuts (Manual) Abs Lymphs (Manual) Abs Monocytes (Manual) Platelet Estimate Anisocytosis Schistocytes VBG pH VBG pCO2 VBG pO2 VBG HCO3 O2 Delivery Device O2 Liters/Min FiO2 Sodium Cancelled Potassium Cancelled Chloride Cancelled Carbon Dioxide Cancelled Anion Gap Cancelled BUN Cancelled Creatinine Cancelled Estim Creat Clear Calc Cancelled Estimated GFR Cancelled Glucose Cancelled POC Capillary Glucose > 500 H* > 500 H* Hemoglobin A1c Lactic Acid 1.3 Calcium Cancelled Phosphorus Magnesium Total Bilirubin AST ALT Alkaline Phosphatase Total Creatine Kinase Total Protein Albumin Triglycerides Cancelled Cholesterol LDL Cholesterol Direct HDL Direct Lipase Beta-Hydroxybutyrate/Acetoacetate TSH (Reflex) Free T4 Total T3 Urine Color Urine Appearance Urine pH Ur Specific [place] Urine Protein Urine Glucose (UA) Urine Ketones Ur Blood (Man) Urine Nitrate Urine Bilirubin Urine Urobilinogen Add Ur Microanalysis Leukocyte Esterase Rfl Urine RBC Urine WBC Ur Squamous Epith Cells Urine Bacteria Urine Casts Urine Eosinophils Ur Random Sodium Ur Random Potassium Urine Creatinine Nasal MRSA (PCR) 05/19/25 05/19/25 05/19/25 18:05 19:02 20:08 WBC RBC Hgb Hct MCV MCH MCHC RDW Plt Count MPV Immature Gran % (Auto) Neut % (Auto) Lymph % (Auto) [place] % (Auto) Eos % (Auto) Baso % (Auto) Lymph # (Auto) [place] # (Auto) Eos # (Auto) Baso # (Auto) Abs Immat Gran (auto) Absolute Neuts (auto) Absolute Nucleated RBC Total Counted Neutrophils % (Manual) Band Neutrophils % Lymphocytes % (Manual) Monocytes % (Manual) Nucleated RBC % Abs Neuts (Manual) Abs Lymphs (Manual) Abs Monocytes (Manual) Platelet Estimate Anisocytosis Schistocytes VBG pH VBG pCO2 VBG pO2 VBG HCO3 O2 Delivery Device O2 Liters/Min FiO2 Sodium Potassium Chloride Carbon Dioxide Anion Gap BUN Creatinine Estim Creat Clear Calc Estimated GFR Glucose POC Capillary Glucose 480 H 434 H 421 H Hemoglobin A1c Lactic Acid Calcium Phosphorus Magnesium Total Bilirubin AST ALT Alkaline Phosphatase Total Creatine Kinase Total Protein Albumin Triglycerides Cholesterol LDL Cholesterol Direct HDL Direct Lipase Beta-Hydroxybutyrate/Acetoacetate TSH (Reflex) Free T4 Total T3 Urine Color Urine Appearance Urine pH Ur Specific [place] Urine Protein Urine Glucose (UA) Urine Ketones Ur Blood (Man) Urine Nitrate Urine Bilirubin Urine Urobilinogen Add Ur Microanalysis Leukocyte Esterase Rfl Urine RBC Urine WBC Ur Squamous Epith Cells Urine Bacteria Urine Casts Urine Eosinophils Ur Random Sodium Ur Random Potassium Urine Creatinine Nasal MRSA (PCR) 05/19/25 05/19/25 05/19/25 20:44 21:05 22:04 WBC RBC Hgb Hct MCV MCH MCHC RDW Plt Count MPV Immature Gran % (Auto) Neut % (Auto) Lymph % (Auto) [place] % (Auto) Eos % (Auto) Baso % (Auto) Lymph # (Auto) [place] # (Auto) Eos # (Auto) Baso # (Auto) Abs Immat Gran (auto) Absolute Neuts (auto) Absolute Nucleated RBC Total Counted Neutrophils % (Manual) Band Neutrophils % Lymphocytes % (Manual) Monocytes % (Manual) Nucleated RBC % Abs Neuts (Manual) Abs Lymphs (Manual) Abs Monocytes (Manual) Platelet Estimate Anisocytosis Schistocytes VBG pH VBG pCO2 VBG pO2 VBG HCO3 O2 Delivery Device O2 Liters/Min FiO2 Sodium 132 L Potassium 3.7 Chloride 106 Carbon Dioxide 11 L Anion Gap 15 H BUN 23 H Creatinine 1.37 H Estim Creat Clear Calc 62 Estimated GFR 58 L Glucose 402 H POC Capillary Glucose 415 H 370 H Hemoglobin A1c Lactic Acid Calcium 7.3 L Phosphorus Magnesium Total Bilirubin AST ALT Alkaline Phosphatase Total Creatine Kinase Total Protein Albumin Triglycerides 1662 H Cholesterol LDL Cholesterol Direct HDL Direct Lipase Beta-Hydroxybutyrate/Acetoacetate TSH (Reflex) Free T4 Total T3 Urine Color Urine Appearance Urine pH Ur Specific [place] Urine Protein Urine Glucose (UA) Urine Ketones Ur Blood (Man) Urine Nitrate Urine Bilirubin Urine Urobilinogen Add Ur Microanalysis Leukocyte Esterase Rfl Urine RBC Urine WBC Ur Squamous Epith Cells Urine Bacteria Urine Casts Urine Eosinophils Ur Random Sodium Ur Random Potassium Urine Creatinine Nasal MRSA (PCR) 05/19/25 05/19/25 05/19/25 22:05 22:58 23:59 WBC RBC Hgb Hct MCV MCH MCHC RDW Plt Count MPV Immature Gran % (Auto) Neut % (Auto) Lymph % (Auto) [place] % (Auto) Eos % (Auto) Baso % (Auto) Lymph # (Auto) [place] # (Auto) Eos # (Auto) Baso # (Auto) Abs Immat Gran (auto) Absolute Neuts (auto) Absolute Nucleated RBC Total Counted Neutrophils % (Manual) Band Neutrophils % Lymphocytes % (Manual) Monocytes % (Manual) Nucleated RBC % Abs Neuts (Manual) Abs Lymphs (Manual) Abs Monocytes (Manual) Platelet Estimate Anisocytosis Schistocytes VBG pH VBG pCO2 VBG pO2 VBG HCO3 O2 Delivery Device O2 Liters/Min FiO2 Sodium Potassium Chloride Carbon Dioxide Anion Gap BUN Creatinine Estim Creat Clear Calc Estimated GFR Glucose POC Capillary Glucose 386 H 352 H 339 H Hemoglobin A1c Lactic Acid Calcium Phosphorus Magnesium Total Bilirubin AST ALT Alkaline Phosphatase Total Creatine Kinase Total Protein Albumin Triglycerides Cholesterol LDL Cholesterol Direct HDL Direct Lipase Beta-Hydroxybutyrate/Acetoacetate TSH (Reflex) Free T4 Total T3 Urine Color Urine Appearance Urine pH Ur Specific [place] Urine Protein Urine Glucose (UA) Urine Ketones Ur Blood (Man) Urine Nitrate Urine Bilirubin Urine Urobilinogen Add Ur Microanalysis Leukocyte Esterase Rfl Urine RBC Urine WBC Ur Squamous Epith Cells Urine Bacteria Urine Casts Urine Eosinophils Ur Random Sodium Ur Random Potassium Urine Creatinine Nasal MRSA (PCR) 05/20/25 05/20/25 05/20/25 00:38 01:14 01:55 WBC RBC Hgb Hct MCV MCH MCHC RDW Plt Count MPV Immature Gran % (Auto) Neut % (Auto) Lymph % (Auto) [place] % (Auto) Eos % (Auto) Baso % (Auto) Lymph # (Auto) [place] # (Auto) Eos # (Auto) Baso # (Auto) Abs Immat Gran (auto) Absolute Neuts (auto) Absolute Nucleated RBC Total Counted Neutrophils % (Manual) Band Neutrophils % Lymphocytes % (Manual) Monocytes % (Manual) Nucleated RBC % Abs Neuts (Manual) Abs Lymphs (Manual) Abs Monocytes (Manual) Platelet Estimate Anisocytosis Schistocytes VBG pH VBG pCO2 VBG pO2 VBG HCO3 O2 Delivery Device O2 Liters/Min FiO2 Sodium Cancelled Potassium Cancelled Chloride Cancelled Carbon Dioxide Cancelled Anion Gap Cancelled BUN Cancelled Creatinine Cancelled Estim Creat Clear Calc Cancelled Estimated GFR Cancelled Glucose Cancelled POC Capillary Glucose 289 H 283 H Hemoglobin A1c Lactic Acid Calcium Cancelled Phosphorus Magnesium Total Bilirubin AST ALT Alkaline Phosphatase Total Creatine Kinase Total Protein Albumin Triglycerides 2573 H Cholesterol LDL Cholesterol Direct HDL Direct Lipase Beta-Hydroxybutyrate/Acetoacetate TSH (Reflex) Free T4 Total T3 Urine Color Urine Appearance Urine pH Ur Specific [place] Urine Protein Urine Glucose (UA) Urine Ketones Ur Blood (Man) Urine Nitrate Urine Bilirubin Urine Urobilinogen Add Ur Microanalysis Leukocyte Esterase Rfl Urine RBC Urine WBC Ur Squamous Epith Cells Urine Bacteria Urine Casts Urine Eosinophils Ur Random Sodium Ur Random Potassium Urine Creatinine Nasal MRSA (PCR) 05/20/25 05/20/25 05/20/25 02:58 03:51 04:42 WBC 5.8 RBC 4.58 L Hgb 13.3 L Hct 37.5 L MCV 81.9 D MCH 29.0 MCHC 35.5 RDW 13.9 Plt Count 287 MPV 10.7 H Immature Gran % (Auto) 0.5 Neut % (Auto) 77.2 H Lymph % (Auto) 14.6 L [place] % (Auto) 7.0 Eos % (Auto) 0.2 Baso % (Auto) 0.5 Lymph # (Auto) 0.85 L [place] # (Auto) 0.4 Eos # (Auto) 0.0 Baso # (Auto) 0.0 Abs Immat Gran (auto) 0.03 Absolute Neuts (auto) 4.5 Absolute Nucleated RBC 0.040 H Total Counted Neutrophils % (Manual) Band Neutrophils % Lymphocytes % (Manual) Monocytes % (Manual) Nucleated RBC % 0.7 H Abs Neuts (Manual) Abs Lymphs (Manual) Abs Monocytes (Manual) Platelet Estimate Anisocytosis Schistocytes VBG pH VBG pCO2 VBG pO2 VBG HCO3 O2 Delivery Device O2 Liters/Min FiO2 Sodium Potassium Chloride Carbon Dioxide Anion Gap BUN Creatinine Estim Creat Clear Calc Estimated GFR Glucose POC Capillary Glucose 259 H 228 H Hemoglobin A1c Lactic Acid Calcium Phosphorus Magnesium Total Bilirubin AST ALT Alkaline Phosphatase Total Creatine Kinase Total Protein Albumin Triglycerides Cholesterol LDL Cholesterol Direct HDL Direct Lipase Beta-Hydroxybutyrate/Acetoacetate TSH (Reflex) Free T4 Total T3 Urine Color Urine Appearance Urine pH Ur Specific [place] Urine Protein Urine Glucose (UA) Urine Ketones Ur Blood (Man) Urine Nitrate Urine Bilirubin Urine Urobilinogen Add Ur Microanalysis Leukocyte Esterase Rfl Urine RBC Urine WBC Ur Squamous Epith Cells Urine Bacteria Urine Casts Urine Eosinophils Ur Random Sodium Ur Random Potassium Urine Creatinine Nasal MRSA (PCR) 05/20/25 05/20/25 05/20/25 05:03 05:47 05:52 WBC RBC Hgb Hct MCV MCH MCHC RDW Plt Count MPV Immature Gran % (Auto) Neut % (Auto) Lymph % (Auto) [place] % (Auto) Eos % (Auto) Baso % (Auto) Lymph # (Auto) [place] # (Auto) Eos # (Auto) Baso # (Auto) Abs Immat Gran (auto) Absolute Neuts (auto) Absolute Nucleated RBC Total Counted Neutrophils % (Manual) Band Neutrophils % Lymphocytes % (Manual) Monocytes % (Manual) Nucleated RBC % Abs Neuts (Manual) Abs Lymphs (Manual) Abs Monocytes (Manual) Platelet Estimate Anisocytosis Schistocytes VBG pH VBG pCO2 VBG pO2 VBG HCO3 O2 Delivery Device O2 Liters/Min FiO2 Sodium Cancelled 136 L Potassium Cancelled 2.9 L Chloride Cancelled 109 H Carbon Dioxide Cancelled 16 L Anion Gap Cancelled 11 BUN Cancelled 25 H Creatinine Cancelled 1.30 Estim Creat Clear Calc Cancelled 74 Estimated GFR Cancelled > 60 Glucose Cancelled 178 H POC Capillary Glucose 198 H Hemoglobin A1c Lactic Acid Calcium Cancelled 7.3 L Phosphorus 1.5 L Magnesium 1.8 Total Bilirubin 2.9 H AST 338 H ALT 199 H Alkaline Phosphatase 319 H Total Creatine Kinase Total Protein 6.4 Albumin 2.9 L Triglycerides > 2625 H Cancelled Cholesterol LDL Cholesterol Direct HDL Direct Lipase Beta-Hydroxybutyrate/Acetoacetate TSH (Reflex) Free T4 Total T3 Urine Color Urine Appearance Urine pH Ur Specific [place] Urine Protein Urine Glucose (UA) Urine Ketones Ur Blood (Man) Urine Nitrate Urine Bilirubin Urine Urobilinogen Add Ur Microanalysis Leukocyte Esterase Rfl Urine RBC Urine WBC Ur Squamous Epith Cells Urine Bacteria Urine Casts Urine Eosinophils Ur Random Sodium Ur Random Potassium Urine Creatinine Nasal MRSA (PCR) 05/20/25 05/20/25 05/20/25 05:58 06:50 07:40 WBC RBC Hgb Hct MCV MCH MCHC RDW Plt Count MPV Immature Gran % (Auto) Neut % (Auto) Lymph % (Auto) [place] % (Auto) Eos % (Auto) Baso % (Auto) Lymph # (Auto) [place] # (Auto) Eos # (Auto) Baso # (Auto) Abs Immat Gran (auto) Absolute Neuts (auto) Absolute Nucleated RBC Total Counted Neutrophils % (Manual) Band Neutrophils % Lymphocytes % (Manual) Monocytes % (Manual) Nucleated RBC % Abs Neuts (Manual) Abs Lymphs (Manual) Abs Monocytes (Manual) Platelet Estimate Anisocytosis Schistocytes VBG pH VBG pCO2 VBG pO2 VBG HCO3 O2 Delivery Device O2 Liters/Min FiO2 Sodium Potassium Chloride Carbon Dioxide Anion Gap BUN Creatinine Estim Creat Clear Calc Estimated GFR Glucose POC Capillary Glucose 178 H 201 H 215 H Hemoglobin A1c Lactic Acid Calcium Phosphorus Magnesium Total Bilirubin AST ALT Alkaline Phosphatase Total Creatine Kinase Total Protein Albumin Triglycerides Cholesterol LDL Cholesterol Direct HDL Direct Lipase Beta-Hydroxybutyrate/Acetoacetate TSH (Reflex) Free T4 Total T3 Urine Color Urine Appearance Urine pH Ur Specific [place] Urine Protein Urine Glucose (UA) Urine Ketones Ur Blood (Man) Urine Nitrate Urine Bilirubin Urine Urobilinogen Add Ur Microanalysis Leukocyte Esterase Rfl Urine RBC Urine WBC Ur Squamous Epith Cells Urine Bacteria Urine Casts Urine Eosinophils Ur Random Sodium Ur Random Potassium Urine Creatinine Nasal MRSA (PCR) 05/20/25 08:52 WBC RBC Hgb Hct MCV MCH MCHC RDW Plt Count MPV Immature Gran % (Auto) Neut % (Auto) Lymph % (Auto) [place] % (Auto) Eos % (Auto) Baso % (Auto) Lymph # (Auto) [place] # (Auto) Eos # (Auto) Baso # (Auto) Abs Immat Gran (auto) Absolute Neuts (auto) Absolute Nucleated RBC Total Counted Neutrophils % (Manual) Band Neutrophils % Lymphocytes % (Manual) Monocytes % (Manual) Nucleated RBC % Abs Neuts (Manual) Abs Lymphs (Manual) Abs Monocytes (Manual) Platelet Estimate Anisocytosis Schistocytes VBG pH VBG pCO2 VBG pO2 VBG HCO3 O2 Delivery Device O2 Liters/Min FiO2 Sodium Potassium Chloride Carbon Dioxide Anion Gap BUN Creatinine Estim Creat Clear Calc Estimated GFR Glucose POC Capillary Glucose 235 H Hemoglobin A1c Lactic Acid Calcium Phosphorus Magnesium Total Bilirubin AST ALT Alkaline Phosphatase Total Creatine Kinase Total Protein Albumin Triglycerides Cholesterol LDL Cholesterol Direct HDL Direct Lipase Beta-Hydroxybutyrate/Acetoacetate TSH (Reflex) Free T4 Total T3 Urine Color Urine Appearance Urine pH Ur Specific [place] Urine Protein Urine Glucose (UA) Urine Ketones Ur Blood (Man) Urine Nitrate Urine Bilirubin Urine Urobilinogen Add Ur Microanalysis Leukocyte Esterase Rfl Urine RBC Urine WBC Ur Squamous Epith Cells Urine Bacteria Urine Casts Urine Eosinophils Ur Random Sodium Ur Random Potassium Urine Creatinine Nasal MRSA (PCR) Quality VTE Prophylaxis VTE prophylaxis: pharmacologic ordered
--- NOTE | 2025-05-20 12:08 | PC.NURSE ---
Program Professional spoke with patient for consultation. She was told he takes a liver/gallbladder supplement, Beef liver, psyllium fiber, and iodine mixed with water in place of his prescription medications. He does not take any prescription medications. Unable to obtain dosages of said supplements at this time.
[2025-05-20 12:41] LABS: Anion Gap 16 mmol/L (4-12); Blood Urea Nitrogen 24 mg/dL (9-20); Calcium 7.5 mg/dL (8.4-10.2); Carbon Dioxide 12 mmol/L (22-30); Chloride 104 mmol/L (98-107); Estimated CRCL calculation 81 ml/min; Estimated Glomerular Filt Rate > 60; Glucose 328 mg/dL (65-110); Potassium 3.3 mmol/L (3.4-5.0); Sodium 132 mmol/L (137-145)
[2025-05-20] MEDS: POTASSIUM BICARBONATE 25 MEQ TABEF 50 MEQ PO (14:00)
[2025-05-20] MEDS: POTASSIUM CHLORIDE INJ 40 MEQ in SODIUM CHLORIDE 0.9% IV 500 ML 130 MEQ IVPB (14:02)
[2025-05-20] MEDS: INSULIN HUMAN REGULAR (*BKC) 100 UNITS in SODIUM CHLORIDE 0.9% IV 99 ML 17.5 UNITS IV CONT (16:11)
[2025-05-20 16:18] LABS: Anion Gap 6 mmol/L (4-12); Blood Urea Nitrogen 22 mg/dL (9-20); Carbon Dioxide 19 mmol/L (22-30); Chloride 106 mmol/L (98-107); Estimated Glomerular Filt Rate > 60; Potassium 3.9 mmol/L (3.4-5.0); Sodium 131 mmol/L (137-145)
[2025-05-20 16:43] LABS: Calcium 8.1 mg/dL (8.4-10.2); Estimated CRCL calculation 89 ml/min; Glucose 275 mg/dL (65-110)
[2025-05-20 16:50] LABS: Triglycerides 2333 mg/dL (<150)
[2025-05-20 20:44] LABS: Anion Gap 6 mmol/L (4-12); Blood Urea Nitrogen 21 mg/dL (9-20); Calcium 8.2 mg/dL (8.4-10.2); Carbon Dioxide 22 mmol/L (22-30); Chloride 108 mmol/L (98-107); Estimated CRCL calculation 94 ml/min; Estimated Glomerular Filt Rate > 60; Glucose 138 mg/dL (65-110); Potassium 3.3 mmol/L (3.4-5.0); Sodium 136 mmol/L (137-145)
[2025-05-21] VITALS (27 sets, daily range): BP systolic 107–138; BP diastolic 60–89; PULSE 90–110; RESP 17–22; TEMP 36.8–37.5; O2SAT 93–100
[2025-05-21] MEDS: KCL 20 MEQ/D5/0.45% SOD CHL 1,000 ML 150 ML IV CONT ×3 (00:22→16:23)
[2025-05-21 00:40] LABS: Anion Gap 11 mmol/L (4-12); Blood Urea Nitrogen 18 mg/dL (9-20); Calcium 7.8 mg/dL (8.4-10.2); Carbon Dioxide 16 mmol/L (22-30); Chloride 107 mmol/L (98-107); Estimated CRCL calculation 103 ml/min; Estimated Glomerular Filt Rate > 60; Glucose 231 mg/dL (65-110); Potassium 3.3 mmol/L (3.4-5.0); Sodium 134 mmol/L (137-145)
[2025-05-21] MEDS: KCL 40 MEQ/0.9% SOD CHL 1,000 ML 150 ML IV CONT (01:50)
[2025-05-21 04:08] LABS: Hematocrit 25.2 % (42.0-52.0); Hemoglobin 9.4 g/dL (14.0-18.0); Mean Corpuscular HGB Conc 37.3 g/dl (32-36); Mean Corpuscular Hemoglobin 31.1 pg (26-34); Mean Corpuscular Volume 83.4 fl (80-100); Platelet Count Result 183 k/mm3 (150-375); Red Blood Count 3.02 M/mm3 (4.6-6.20); White Blood Count 4.5 K/mm3 (4.5-10.0)
[2025-05-21 04:30] LABS: Anion Gap 8 mmol/L (4-12); Blood Urea Nitrogen 18 mg/dL (9-20); Calcium 7.9 mg/dL (8.4-10.2); Carbon Dioxide 18 mmol/L (22-30); Chloride 107 mmol/L (98-107); Estimated CRCL calculation 109 ml/min; Estimated Glomerular Filt Rate > 60; Glucose 233 mg/dL (65-110); Lipase 644 U/L (23-300); Magnesium 2.0 mg/dL (1.6-2.3); Potassium 3.3 mmol/L (3.4-5.0); Sodium 133 mmol/L (137-145)
[2025-05-21 04:43] LABS: Anisocytosis 1+; Band Neutrophils Percent 7 % (0-6); Basophils Absolute Manual 0.09 K/mm3 (0.0-0.1); Basophils Percent Manual 2 % (0-1); Eosinophils Absolute Manual 0.09 K/mm3 (0.02-0.50); Eosinophils Percent Manual 2 % (0-4); Lymphocytes Absolute Manual 0.90 K/mm3 (1.1-4.5); Lymphocytes Percent Manual 20.0 % (18-44); Microcytosis 1+ (NORMAL); Monocytes Absolute Manual 0.18 K/mm3 (0.1-0.90); Monocytes Percent Manual 4 % (3-9); Myelocytes Percent 1 %; Neutrophils Absolute Manual 3.19 K/mm3 (1.3-6.7); Neutrophils Percent Manual 64 % (46-73); Total Cells Counted 100
[2025-05-21 04:44] LABS: Hypochromasia 1+; Schistocytes Rare
[2025-05-21 04:45] LABS: Burr Cells Occasional; Smudge Cells PRESENT
[2025-05-21 05:40] LABS: Triglycerides 1844 mg/dL (<150)
[2025-05-21] MEDS: INSULIN HUMAN REGULAR (*BKC) 100 UNITS in SODIUM CHLORIDE 0.9% IV 99 ML 5.5 UNITS IV CONT (06:59)
[2025-05-21 08:40] LABS: Anion Gap 5 mmol/L (4-12); Blood Urea Nitrogen 15 mg/dL (9-20); Calcium 8.3 mg/dL (8.4-10.2); Carbon Dioxide 21 mmol/L (22-30); Chloride 107 mmol/L (98-107); Estimated CRCL calculation 103 ml/min; Estimated Glomerular Filt Rate > 60; Glucose 222 mg/dL (65-110); Potassium 3.2 mmol/L (3.4-5.0); Sodium 133 mmol/L (137-145)
--- NOTE | 2025-05-21 08:42 | WPDINTPN ---
Progress Note: A&P Assessment and Plan (1) DKA (diabetic ketoacidosis): Qualifiers: Diabetes mellitus type: type 2 Diabetes mellitus complication detail: without coma Qualified Code(s): E11.10 - Type 2 diabetes mellitus with ketoacidosis without coma Code(s): E11.10 - Type 2 diabetes mellitus with ketoacidosis without coma Status: Acute Assessment and Plan: 05/19: Patient presented with epigastric tenderness, nausea, vomiting, decreased oral intake for 3-4 days. Recently diagnosed with diabetes about 3 months back, has been controlling his diabetes with diet and holistic approach/homeopathy. Patient was found to be tachycardic, tachypneic, with a blood sugars of 798, potassium of 7.0, creatinine of 2.74 Patient was treated with IV insulin IV fluids. His anion gap has closed but IV insulin be continued for hypertriglyceridemia. Start clear liquid diet Patient will be transition to subcutaneous insulin once triglyceride levels are improved (2) DM2 (diabetes mellitus, type 2): Qualifiers: Diabetes mellitus exterminator termite insulin use: without exterminator termite use Diabetes mellitus complication status: with ketoacidosis Diabetes mellitus complication detail: without coma Qualified Code(s): E11.10 - Type 2 diabetes mellitus with ketoacidosis without coma Code(s): E11.9 - Type 2 diabetes mellitus without complications Status: Acute Assessment and Plan: Patient stated that he was diagnosed with diabetes 3-4 months ago but not on any treatment right now. Patient used to be on metformin -hemoglobin A1c this admission is 11.7 Consult government relations analyst and dietitian evaluate the patient (3) Hypertriglyceridemia: Code(s): E78.1 - Pure hyperglyceridemia Status: Acute Assessment and Plan: Patient has history of hypertriglyceridemia and was on fenofibric acid and statin the past but has not taken anything in last 3-4 months. Hypertriglyceridemia with triglycerides have a lot of >2625 Likely the cause of his pancreatitis He is clinically improved and feels better. Triglyceride level is down to 1844 I will continue with IV insulin infusion and IV fluids with dextrose Continue monitor triglyceride levels Clear liquid diet Start fenofibrate and statin (4) REGULO (acute kidney injury): Code(s): N17.9 - Acute kidney failure, unspecified Status: Acute Assessment and Plan: Acute kidney injury, likely related to hypovolemia,, inflammatory changes related to pancreatitis -patient received 4 L IV fluid bolus and is on maintenance IV fluids -creatinine has improved and is down in normal range -no hydronephrosis noticed on CT abdomen and pelvis -continue to monitor renal function, electrolytes and urine output (5) Hyperkalemia: Code(s): E87.5 - Hyperkalemia Status: Acute Assessment and Plan: Hyperkalemia likely is multifactorial, acute kidney injury, metabolic ketoacidosis due DKA -initial pH was 6.96, patient received 3 amps of bicarb, Lokelma, insulin and D50 -patient now hypokalemic and potassium is being replaced (6) HLD (hyperlipidemia): Qualifiers: Hyperlipidemia type: unspecified Qualified Code(s): E78.5 - Hyperlipidemia, unspecified Code(s): E78.5 - Hyperlipidemia, unspecified Status: Acute Assessment and Plan: Hypertriglyceridemia, elevated cholesterol -Will start statins once more stable (7) Pancreatitis: Qualifiers: Acute pancreatitis complication: no infection or necrosis Chronicity: acute Pancreatitis type: unspecified pancreatitis type Qualified Code(s): K85.90 - Acute pancreatitis without necrosis or infection, unspecified Code(s): K85.90 - Acute pancreatitis without necrosis or infection, unspecified Status: Acute Assessment and Plan: Acute pancreatitis related to hypertriglyceridemia Continue IV fluid and insulin infusion Start clear liquid diet Pain control (8) Electrolyte abnormality: Code(s): E87.8 - Other disorders of electrolyte and fluid balance, not elsewhere classified Status: Acute Assessment and Plan: Calcium replacement ordered Potassium and phosphorous replacement ordered Magnesium replacement ordered Monitor electrolytes (9) Hypothyroidism: Code(s): E03.9 - Hypothyroidism, unspecified Status: Acute Assessment and Plan: Resume levothyroxine Thyroid function test reviewed (10) Bipolar mood disorder: Code(s): F31.9 - Bipolar disorder, unspecified Status: Acute Assessment and Plan: Patient has a distant history of bipolar mood disorder requiring hospitalization age of 17. He states he is not on any treatment for last 20 years. Patient's mother is adamant the patient is depressed with episodes of gucci. Patient at this time on exam and during my interview does not exhibit any signs of gucci and does not appear overtly depressed. He also denies any suicidal homicidal ideation. Currently I will focus on treating his metabolic and medical problems. Once patient is stabilized and medical issues are resolved will consider psychiatric consult. Plan DVT prophylaxis: Heparin Stress ulcer prophylaxis:Protonix Nutrition: Clear liquid diet Code Status: Full Code Incentive spirometry Up in chair Critical Care Time Spent: 30 minutes Due to a high probability of clinically significant, life threatening deterioration, the patient required my highest level of preparedness to intervene emergently and I personally spent this critical care time directly and personally managing the patient. This critical care time included obtaining a history; examining the patient; pulse oximetry; ordering and review of studies; arranging urgent treatment with development of a management plan; evaluation of patient's response to treatment; frequent reassessment; and discussions with other providers. It was exclusive of separately billable procedures and treating other patients and teaching time. Please see Assessment and Plan section and the rest of the note for further information on patient assessment and treatment This dictation may have been done utilizing a voice recognition system. Attempts have been made to correct errors. However, there may be uncorrected grammatical, spelling, and recognitions errors present. Subjective Date/time seen: 05/21/25 Patient states that he feels better overall. Abdominal pain has improved. He denies any nausea vomiting. He is on insulin infusion. He states he is constipated and had 2 small bowel movements over last 24 hours. All the systems were reviewed and were negative. Continues to be on IV fluid insulin infusion. Afebrile. Vital signs stable. He admitted today day he has a history of diabetes hypothyroidism and hypertriglyceridemia. Patient was on metformin statin, fenofibrate and levothyroxine 75 mcg. He states he stopped taking them 3 months ago. He states that he felt the medications were not helping him and he started feeling better after discontinuing medication 3 months ago and then stayed with the plan. He states that he was taking natural and holistic medications and supplements. He also states that he probably has sleep apnea and fatty liver. He denies any drug abuse and states that he has decreased alcohol intake. He lives in [place] and was traveling here to help with his mom. He states that he was diagnosed with bipolar mood disorder at age of 17 and was admitted once to the hospital for manic episode which he feels was due to overmedication. He states that he has not taken any medications since age of 19 and he feels his mood is like any regular person with ups and Downs in his life. He denies any suicidal or homicidal ideation. He denies any suicidal attempts. He does not feel depressed. He is upset about his if the health and mother's health. He states that his father had a bipolar mood disorder and his mother is obsessed with psychiatric problems and keeps on telling everyone that he has psychiatric issues when he does not feel that is the case. Review of Systems Review of Systems: All systems reviewed & are unremarkable except as noted in HPI and below Exam Narrative: General: Ill-appearing gentleman, HEENT:? Pupils equal and reactive, sclera is clear, moist oral mucous Neck:? Supple Respiratory:?Clear to auscultation bilaterally, no wheezing or rales Cardiac:? Sinus tachycardia Abdomen:? Mild Epigastric tenderness, no rebound, present but decreased bowel sounds, soft, protuberant obese Extremities:? No edema, palpable pedal pulse Neuro:? Patient is awake, alert, answers to questions appropriately and follows commands Skin:? No skin lesions noted Psych:? Normal orientation, normal speech and affect Objective Data Vital Signs Vital Signs: Vital Signs - 24 hr 05/20/25 08:55 05/20/25 09:52 05/20/25 10:00 Temperature 36.4 C Pulse Rate 110 H 104 H 102 H Respiratory Rate 22 H 24 H Blood Pressure 129/87 131/83 Pulse Oximetry 96 93 Oxygen Delivery 05/20/25 11:00 05/20/25 12:00 05/20/25 12:00 Temperature 36.6 C Pulse Rate 102 H 103 H Respiratory Rate 22 H 21 H Blood Pressure 142/93 H 134/81 Pulse Oximetry 95 98 98 Oxygen Delivery Room Air 05/20/25 12:00 05/20/25 12:00 05/20/25 13:00 Temperature 36.6 C Pulse Rate 101 H 101 H 102 H Respiratory Rate 24 H 23 H Blood Pressure 134/81 134/89 Pulse Oximetry 97 96 Oxygen Delivery 05/20/25 13:57 05/20/25 14:00 05/20/25 15:00 Temperature 36.6 C Pulse Rate 115 H 104 H 103 H Respiratory Rate 23 H 22 H Blood Pressure 128/90 123/91 H Pulse Oximetry 97 98 Oxygen Delivery 05/20/25 15:00 05/20/25 16:00 05/20/25 16:00 Temperature Pulse Rate 102 H 102 H Respiratory Rate 25 H 23 H Blood Pressure 123/91 H 119/85 Pulse Oximetry 99 96 97 Oxygen Delivery Room Air 05/20/25 16:00 05/20/25 16:53 05/20/25 18:00 Temperature 37.0 C Pulse Rate 105 H 103 H 101 H Respiratory Rate 24 H Blood Pressure 128/86 Pulse Oximetry 97 Oxygen Delivery 05/20/25 18:00 05/20/25 20:00 05/20/25 20:00 Temperature Pulse Rate 103 H 100 Respiratory Rate 18 Blood Pressure 126/86 Pulse Oximetry 98 98 Oxygen Delivery Room Air 05/20/25 21:00 05/20/25 22:00 05/20/25 22:00 Temperature 37.0 C Pulse Rate 102 H 102 H 102 H Respiratory Rate 24 H 20 Blood Pressure 115/82 126/90 Pulse Oximetry 96 97 Oxygen Delivery 05/20/25 23:00 05/21/25 00:00 05/21/25 00:00 Temperature 37.6 C 37.5 C Pulse Rate 101 H 99 99 Respiratory Rate 24 H 19 Blood Pressure 122/78 138/81 Pulse Oximetry 96 97 Oxygen Delivery 05/21/25 00:00 05/21/25 01:00 05/21/25 02:00 Temperature 37.2 C Pulse Rate 98 100 Respiratory Rate 21 H 20 Blood Pressure 119/84 135/89 Pulse Oximetry 93 96 98 Oxygen Delivery Room Air 05/21/25 02:00 05/21/25 03:00 05/21/25 04:00 Temperature Pulse Rate 100 97 Respiratory Rate 22 H Blood Pressure 126/80 Pulse Oximetry 97 99 Oxygen Delivery Room Air 05/21/25 04:00 05/21/25 04:00 05/21/25 05:00 Temperature 37.0 C Pulse Rate 96 95 93 Respiratory Rate 22 H 20 Blood Pressure 127/84 118/86 Pulse Oximetry 97 97 Oxygen Delivery 05/21/25 06:00 05/21/25 06:00 05/21/25 07:00 Temperature 37.0 C Pulse Rate 93 93 97 Respiratory Rate 20 19 Blood Pressure 120/75 121/77 Pulse Oximetry 96 98 Oxygen Delivery Intake/Output Intake/Output: Intake & Output 05/18/25 05/19/25 05/20/25 05/21/25 23:59 23:59 23:59 23:59 Intake Total 4510.8 4575.4667 2080.6 Output Total 1925 2600 1350 Balance 2585.8 1975.4667 730.6 Meds/Results Medications: Active Medications Generic Name Dose Route Start Last Admin Trade Name Freq PRN Reason Stop Dose Admin Acetaminophen 650 mg 05/19/25 12:55 Acetaminophen 325 Mg Tablet PO Q4H PRN Mild Pain (1-3) or Fever Dextrose 12.5 gm 05/19/25 12:14 Dextrose 50% 25 Gm/50 Ml Syringe IV PUSH PRN PRN Hypoglycemia Protocol Fentanyl Citrate 25 mcg 05/19/25 14:14 Fentanyl Citrate Inj (*Crx) 100 Mcg/2 Ml Vial IV PUSH Q3H PRN Pain Rated 6 or Greater Glucagon 1 mg 05/19/25 12:14 Glucagon For Inj 1 Mg Vial IM PRN PRN Hypoglycemia Protocol Glucose 15 gm 05/19/25 12:14 Glucose Oral Gel 15 Gm Of Glucse In 37.5 Gm Tube PO PRN PRN Hypoglycemia Protocol Heparin Sodium (Porcine) 5,000 units 05/19/25 22:00 05/21/25 06:58 Heparin Sodium 5,000 Units/Ml Vial SUB-Q 5,000 units Q8HR BEBETO Administration Insulin Human Regular 100 100 mls @ 5.5 mls/hr 05/19/25 12:15 05/21/25 08:15 units/ Sodium Chloride IV CONT 5.5 units/hr .[id number] BEBETO 5.5 mls/hr Protocol Titration 5.5 UNITS/HR Dextrose 1,000 mls @ 100 mls/hr 05/19/25 12:14 Dextrose 5% 1,000 Ml IVPB PRN PRN Hypoglycemia Protocol Potassium Chloride/Dextrose/Sod Cl 1,000 mls @ 150 mls/hr 05/19/25 14:35 05/21/25 07:00 Kcl 20 Meq/D5/0.45% Sod Chl IV CONT 150 mls/hr .[id number] BEBETO Infusion Calcium Gluconate 2,000 mg in 100 mls @ 100 mls/hr 05/21/25 07:49 Calcium Gluc 2,000 Mg/Ns 100ml IVPB 05/21/25 08:48 ONCE ONE Potassium Phosphate 20 mmol/ 256.6667 mls @ 64.167 mls/hr 05/21/25 08:30 Sodium Chloride IVPB 05/21/25 12:29 ONCE ONE Levothyroxine Sodium 75 mcg 05/22/25 06:30 Levothyroxine Sodium 75 Mcg Tablet PO DAILY@0630 [facility] Ondansetron HCl 4 mg 05/19/25 12:55 05/20/25 08:50 Ondansetron Inj 4 Mg/2 Ml Vial IV PUSH 4 mg Q4H PRN Administration Nausea Pantoprazole Sodium 40 mg 05/20/25 09:00 05/20/25 21:56 Pantoprazole Sodium Iv 40 Mg Vial IV PUSH 40 mg Q12H BEBETO Administration Polyethylene Glycol 17 gm 05/21/25 09:00 Polyethylene Glycol 3350 17 Gm Powd.Pack PO QAM [facility] Radiology Results: ITS Impressions Chest X-Ray 05/19/25 12:24 IMPRESSION: 1. No acute cardiopulmonary findings given portable technique. Abdomen/Pelvis CT 05/19/25 12:43 IMPRESSION: 1. Severe pancreatitis and/or gastroduodenitis. Labs Labs: Laboratory Results - last 24 hr 05/19/25 05/20/25 05/20/25 23:36 08:52 10:09 WBC RBC Hgb Hct MCV MCH MCHC RDW Plt Count MPV Immature Gran % (Auto) Neut % (Auto) Lymph % (Auto) [place] % (Auto) Eos % (Auto) Baso % (Auto) Lymph # (Auto) [place] # (Auto) Eos # (Auto) Baso # (Auto) Abs Immat Gran (auto) Absolute Neuts (auto) Absolute Nucleated RBC Total Counted Neutrophils % (Manual) Band Neutrophils % Lymphocytes % (Manual) Monocytes % (Manual) Eosinophils % (Manual) Basophils % (Manual) Myelocytes % Nucleated RBC % Abs Neuts (Manual) Abs Lymphs (Manual) Abs Monocytes (Manual) Absolute Eos (Manual) Abs Basophils (Manual) Smudge Cells Platelet Estimate Hypochromasia Anisocytosis Microcytosis Hina Cells Schistocytes Sodium Cancelled Potassium Cancelled Chloride Cancelled Carbon Dioxide Cancelled Anion Gap Cancelled BUN Cancelled Creatinine Cancelled Estim Creat Clear Calc Cancelled Estimated GFR Cancelled Glucose Cancelled POC Capillary Glucose 235 H 310 H Calcium Cancelled Phosphorus Magnesium Triglycerides Lipase 05/20/25 05/20/25 05/20/25 10:57 12:06 12:10 WBC RBC Hgb Hct MCV MCH MCHC RDW Plt Count MPV Immature Gran % (Auto) Neut % (Auto) Lymph % (Auto) [place] % (Auto) Eos % (Auto) Baso % (Auto) Lymph # (Auto) [place] # (Auto) Eos # (Auto) Baso # (Auto) Abs Immat Gran (auto) Absolute Neuts (auto) Absolute Nucleated RBC Total Counted Neutrophils % (Manual) Band Neutrophils % Lymphocytes % (Manual) Monocytes % (Manual) Eosinophils % (Manual) Basophils % (Manual) Myelocytes % Nucleated RBC % Abs Neuts (Manual) Abs Lymphs (Manual) Abs Monocytes (Manual) Absolute Eos (Manual) Abs Basophils (Manual) Smudge Cells Platelet Estimate Hypochromasia Anisocytosis Microcytosis Hina Cells Schistocytes Sodium 132 L Potassium 3.3 L Chloride 104 Carbon Dioxide 12 L Anion Gap 16 H BUN 24 H Creatinine 1.18 Estim Creat Clear Calc 81 Estimated GFR > 60 Glucose 328 H POC Capillary Glucose 304 H 352 H Calcium 7.5 L Phosphorus 3.3 Magnesium Triglycerides Lipase 05/20/25 05/20/25 05/20/25 13:06 14:09 15:03 WBC RBC Hgb Hct MCV MCH MCHC RDW Plt Count MPV Immature Gran % (Auto) Neut % (Auto) Lymph % (Auto) [place] % (Auto) Eos % (Auto) Baso % (Auto) Lymph # (Auto) [place] # (Auto) Eos # (Auto) Baso # (Auto) Abs Immat Gran (auto) Absolute Neuts (auto) Absolute Nucleated RBC Total Counted Neutrophils % (Manual) Band Neutrophils % Lymphocytes % (Manual) Monocytes % (Manual) Eosinophils % (Manual) Basophils % (Manual) Myelocytes % Nucleated RBC % Abs Neuts (Manual) Abs Lymphs (Manual) Abs Monocytes (Manual) Absolute Eos (Manual) Abs Basophils (Manual) Smudge Cells Platelet Estimate Hypochromasia Anisocytosis Microcytosis Hina Cells Schistocytes Sodium Potassium Chloride Carbon Dioxide Anion Gap BUN Creatinine Estim Creat Clear Calc Estimated GFR Glucose POC Capillary Glucose 357 H 322 H 324 H Calcium Phosphorus Magnesium Triglycerides Lipase 05/20/25 05/20/25 05/20/25 15:57 15:58 17:07 WBC RBC Hgb Hct MCV MCH MCHC RDW Plt Count MPV Immature Gran % (Auto) Neut % (Auto) Lymph % (Auto) [place] % (Auto) Eos % (Auto) Baso % (Auto) Lymph # (Auto) [place] # (Auto) Eos # (Auto) Baso # (Auto) Abs Immat Gran (auto) Absolute Neuts (auto) Absolute Nucleated RBC Total Counted Neutrophils % (Manual) Band Neutrophils % Lymphocytes % (Manual) Monocytes % (Manual) Eosinophils % (Manual) Basophils % (Manual) Myelocytes % Nucleated RBC % Abs Neuts (Manual) Abs Lymphs (Manual) Abs Monocytes (Manual) Absolute Eos (Manual) Abs Basophils (Manual) Smudge Cells Platelet Estimate Hypochromasia Anisocytosis Microcytosis [place] Cells Schistocytes Sodium 131 L Potassium 3.9 Chloride 106 Carbon Dioxide 19 L Anion Gap 6 BUN 22 H Creatinine 1.07 Estim Creat Clear Calc 89 Estimated GFR > 60 Glucose 275 H POC Capillary Glucose 285 H 264 H Calcium 8.1 L Phosphorus Magnesium Triglycerides 2333 H Lipase 05/20/25 05/20/25 05/20/25 18:06 19:17 20:08 WBC RBC Hgb Hct MCV MCH MCHC RDW Plt Count MPV Immature Gran % (Auto) Neut % (Auto) Lymph % (Auto) [place] % (Auto) Eos % (Auto) Baso % (Auto) Lymph # (Auto) [place] # (Auto) Eos # (Auto) Baso # (Auto) Abs Immat Gran (auto) Absolute Neuts (auto) Absolute Nucleated RBC Total Counted Neutrophils % (Manual) Band Neutrophils % Lymphocytes % (Manual) Monocytes % (Manual) Eosinophils % (Manual) Basophils % (Manual) Myelocytes % Nucleated RBC % Abs Neuts (Manual) Abs Lymphs (Manual) Abs Monocytes (Manual) Absolute Eos (Manual) Abs Basophils (Manual) Smudge Cells Platelet Estimate Hypochromasia Anisocytosis Microcytosis [place] Cells Schistocytes Sodium 136 L Potassium 3.3 L Chloride 108 H Carbon Dioxide 22 Anion Gap 6 BUN 21 H Creatinine 1.01 Estim Creat Clear Calc 94 Estimated GFR > 60 Glucose 138 H POC Capillary Glucose 209 H 163 H Calcium 8.2 L Phosphorus Magnesium Triglycerides Lipase 05/20/25 05/20/25 05/20/25 20:18 21:11 21:57 WBC RBC Hgb Hct MCV MCH MCHC RDW Plt Count MPV Immature Gran % (Auto) Neut % (Auto) Lymph % (Auto) [place] % (Auto) Eos % (Auto) Baso % (Auto) Lymph # (Auto) [place] # (Auto) Eos # (Auto) Baso # (Auto) Abs Immat Gran (auto) Absolute Neuts (auto) Absolute Nucleated RBC Total Counted Neutrophils % (Manual) Band Neutrophils % Lymphocytes % (Manual) Monocytes % (Manual) Eosinophils % (Manual) Basophils % (Manual) Myelocytes % Nucleated RBC % Abs Neuts (Manual) Abs Lymphs (Manual) Abs Monocytes (Manual) Absolute Eos (Manual) Abs Basophils (Manual) Smudge Cells Platelet Estimate Hypochromasia Anisocytosis Microcytosis [place] Cells Schistocytes Sodium Potassium Chloride Carbon Dioxide Anion Gap BUN Creatinine Estim Creat Clear Calc Estimated GFR Glucose POC Capillary Glucose 156 H 161 H 167 H Calcium Phosphorus Magnesium Triglycerides Lipase 05/20/25 05/21/25 05/21/25 23:15 00:04 00:22 WBC RBC Hgb Hct MCV MCH MCHC RDW Plt Count MPV Immature Gran % (Auto) Neut % (Auto) Lymph % (Auto) [place] % (Auto) Eos % (Auto) Baso % (Auto) Lymph # (Auto) [place] # (Auto) Eos # (Auto) Baso # (Auto) Abs Immat Gran (auto) Absolute Neuts (auto) Absolute Nucleated RBC Total Counted Neutrophils % (Manual) Band Neutrophils % Lymphocytes % (Manual) Monocytes % (Manual) Eosinophils % (Manual) Basophils % (Manual) Myelocytes % Nucleated RBC % Abs Neuts (Manual) Abs Lymphs (Manual) Abs Monocytes (Manual) Absolute Eos (Manual) Abs Basophils (Manual) Smudge Cells Platelet Estimate Hypochromasia Anisocytosis Microcytosis Hina Cells Schistocytes Sodium 134 L Potassium 3.3 L Chloride 107 Carbon Dioxide 16 L Anion Gap 11 BUN 18 Creatinine 0.91 Estim Creat Clear Calc 103 Estimated GFR > 60 Glucose 231 H POC Capillary Glucose 212 H 255 H Calcium 7.8 L Phosphorus Magnesium Triglycerides Lipase 05/21/25 05/21/25 05/21/25 01:01 01:48 02:44 WBC RBC Hgb Hct MCV MCH MCHC RDW Plt Count MPV Immature Gran % (Auto) Neut % (Auto) Lymph % (Auto) [place] % (Auto) Eos % (Auto) Baso % (Auto) Lymph # (Auto) [place] # (Auto) Eos # (Auto) Baso # (Auto) Abs Immat Gran (auto) Absolute Neuts (auto) Absolute Nucleated RBC Total Counted Neutrophils % (Manual) Band Neutrophils % Lymphocytes % (Manual) Monocytes % (Manual) Eosinophils % (Manual) Basophils % (Manual) Myelocytes % Nucleated RBC % Abs Neuts (Manual) Abs Lymphs (Manual) Abs Monocytes (Manual) Absolute Eos (Manual) Abs Basophils (Manual) Smudge Cells Platelet Estimate Hypochromasia Anisocytosis Microcytosis [place] Cells Schistocytes Sodium Potassium Chloride Carbon Dioxide Anion Gap BUN Creatinine Estim Creat Clear Calc Estimated GFR Glucose POC Capillary Glucose 264 H 283 H 261 H Calcium Phosphorus Magnesium Triglycerides Lipase 05/21/25 05/21/25 05/21/25 03:57 05:04 06:14 WBC 4.5 RBC 3.02 L Hgb 9.4 L D Hct 25.2 L MCV 83.4 MCH 31.1 D MCHC 37.3 H RDW 14.6 H Plt Count 183 MPV 10.6 H Immature Gran % (Auto) Not Reportable Neut % (Auto) Not Reportable Lymph % (Auto) Not Reportable [place] % (Auto) Not Reportable Eos % (Auto) Not Reportable Baso % (Auto) Not Reportable Lymph # (Auto) Not Reportable [place] # (Auto) Not Reportable Eos # (Auto) Not Reportable Baso # (Auto) Not Reportable Abs Immat Gran (auto) Not Reportable Absolute Neuts (auto) Not Reportable Absolute Nucleated RBC Not Reportable Total Counted 100 Neutrophils % (Manual) 64 Band Neutrophils % 7 H Lymphocytes % (Manual) 20.0 Monocytes % (Manual) 4 Eosinophils % (Manual) 2 Basophils % (Manual) 2 H Myelocytes % 1 Nucleated RBC % Not Reportable Abs Neuts (Manual) 3.19 Abs Lymphs (Manual) 0.90 L Abs Monocytes (Manual) 0.18 Absolute Eos (Manual) 0.09 Abs Basophils (Manual) 0.09 Smudge Cells Present Platelet Estimate Adequate Hypochromasia 1+ Anisocytosis 1+ Microcytosis 1+ [place] Cells Occasional Schistocytes Rare Sodium 133 L Potassium 3.3 L Chloride 107 Carbon Dioxide 18 L Anion Gap 8 BUN 18 Creatinine 0.86 Estim Creat Clear Calc 109 Estimated GFR > 60 Glucose 233 H POC Capillary Glucose 240 H 261 H Calcium 7.9 L Phosphorus 1.7 L Magnesium 2.0 Triglycerides 1844 H Lipase 644 H 05/21/25 05/21/25 05/21/25 06:59 08:14 08:15 WBC RBC Hgb Hct MCV MCH MCHC RDW Plt Count MPV Immature Gran % (Auto) Neut % (Auto) Lymph % (Auto) [place] % (Auto) Eos % (Auto) Baso % (Auto) Lymph # (Auto) [place] # (Auto) Eos # (Auto) Baso # (Auto) Abs Immat Gran (auto) Absolute Neuts (auto) Absolute Nucleated RBC Total Counted Neutrophils % (Manual) Band Neutrophils % Lymphocytes % (Manual) Monocytes % (Manual) Eosinophils % (Manual) Basophils % (Manual) Myelocytes % Nucleated RBC % Abs Neuts (Manual) Abs Lymphs (Manual) Abs Monocytes (Manual) Absolute Eos (Manual) Abs Basophils (Manual) Smudge Cells Platelet Estimate Hypochromasia Anisocytosis Microcytosis [place] Cells Schistocytes Sodium 133 L Potassium 3.2 L Chloride 107 Carbon Dioxide 21 L Anion Gap 5 BUN 15 Creatinine 0.80 Estim Creat Clear Calc 103 Estimated GFR > 60 Glucose 222 H POC Capillary Glucose 241 H 229 H Calcium 8.3 L Phosphorus Magnesium Triglycerides Lipase Quality VTE Prophylaxis VTE prophylaxis: pharmacologic ordered
[2025-05-21] MEDS: ATORVASTATIN 40 MG TABLET 80 MG PO (09:00)
[2025-05-21] MEDS: FENOFIBRATE 145 MG TABLET PO (09:00)
[2025-05-21] MEDS: POTASSIUM PHOS,M-BASIC-D-BASIC 20 MMOL in SODIUM CHLORIDE 0.9% IV 250 ML 64.17 MMOL IVPB (09:04)
[2025-05-21] MEDS: CALCIUM GLUC 2,000 MG/NS 100ML 2,000 MG/100 ML BAG 100 MG IVPB (09:06)
[2025-05-21] MEDS: PANTOPRAZOLE SODIUM IV 40 MG VIAL IV PUSH ×2 (09:08→22:26)
[2025-05-21] MEDS: POTASSIUM BICARBONATE 25 MEQ TABEF 50 MEQ PO ×2 (10:33→19:42)
[2025-05-21 11:08] LABS: Chloride, Urine <20 mmol/L (Not Estab.)
[2025-05-21 13:03] LABS: Anion Gap 9 mmol/L (4-12); Blood Urea Nitrogen 13 mg/dL (9-20); Calcium 8.6 mg/dL (8.4-10.2); Carbon Dioxide 19 mmol/L (22-30); Chloride 103 mmol/L (98-107); Estimated CRCL calculation 111 ml/min; Estimated Glomerular Filt Rate > 60; Glucose 320 mg/dL (65-110); Potassium 3.9 mmol/L (3.4-5.0); Sodium 131 mmol/L (137-145)
--- NOTE | 2025-05-21 14:41 | PM.IMPN ---
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 Patient used to be on metformin -hemoglobin A1c this admission is 11.7 Consult development educator and dietitian evaluate the patient (3) Hypertriglyceridemia: Code(s): E78.1 - Pure hyperglyceridemia Status: Acute Assessment and Plan: Patient has history of hypertriglyceridemia and was on fenofibric acid and statin the past but has not taken anything in last 3-4 months. Hypertriglyceridemia with triglycerides have a lot of >2625 Likely the cause of his pancreatitis He is clinically improved and feels better. Triglyceride level is down to 1844 I will continue with IV insulin infusion and IV fluids with dextrose Continue monitor triglyceride levels Clear liquid diet Start fenofibrate and statin (4) REGULO (acute kidney injury): Code(s): N17.9 - Acute kidney failure, unspecified Status: Acute Assessment and Plan: Acute kidney injury, likely related to hypovolemia,, inflammatory changes related to pancreatitis resolved Cr 0.74 (5) Hyperkalemia: Code(s): E87.5 - Hyperkalemia Status: Acute Assessment and Plan: Hyperkalemia likely is multifactorial, acute kidney injury, metabolic ketoacidosis due DKA resolved (6) HLD (hyperlipidemia): Qualifiers: Hyperlipidemia type: unspecified Qualified Code(s): E78.5 - Hyperlipidemia, unspecified Code(s): E78.5 - Hyperlipidemia, unspecified Status: Acute Assessment and Plan: Hypertriglyceridemia, elevated cholesterol -Will start statins once more stable contineu insulin ifusion (7) Pancreatitis: Qualifiers: Acute pancreatitis complication: no infection or necrosis Chronicity: acute Pancreatitis type: unspecified pancreatitis type Qualified Code(s): K85.90 - Acute pancreatitis without necrosis or infection, unspecified Code(s): K85.90 - Acute pancreatitis without necrosis or infection, unspecified Status: Acute Assessment and Plan: Acute pancreatitis related to hypertriglyceridemia Continue IV fluid and insulin infusion Start clear liquid diet Pain control (8) Electrolyte abnormality: Code(s): E87.8 - Other disorders of electrolyte and fluid balance, not elsewhere classified Status: Acute Assessment and Plan: Calcium replacement ordered Potassium and phosphorous replacement ordered Magnesium replacement ordered Monitor electrolytes (9) Hypothyroidism: Code(s): E03.9 - Hypothyroidism, unspecified Status: Acute Assessment and Plan: Resume levothyroxine Thyroid function test reviewed (10) Bipolar mood disorder: Code(s): F31.9 - Bipolar disorder, unspecified Status: Acute Assessment and Plan: Patient has a distant history of bipolar mood disorder requiring hospitalization age of 17. He states he is not on any treatment for last 20 years. Patient's mother is adamant the patient is depressed with episodes of gucci. Patient at this time on exam and during my interview does not exhibit any signs of gucci and does not appear overtly depressed. He also denies any suicidal homicidal ideation. Currently I will focus on treating his metabolic and medical problems. Once patient is stabilized and medical issues are resolved will consider psychiatric consult. Plan DVT prophylaxis: Heparin Stress ulcer prophylaxis:Protonix Nutrition: Clear liquid diet Code Status: Full Code Incentive spirometry Up in chair Subjective Date/time seen: 05/21/25 14:41 Interval history: COmfortable at bedside Review of Systems Review of Systems: All systems reviewed & are unremarkable except as noted in HPI and below Exam Narrative: General: Ill-appearing gentleman, HEENT:? Pupils equal and reactive, sclera is clear, moist oral mucous Neck:? Supple Respiratory:?Clear to auscultation bilaterally, no wheezing or rales Cardiac:? Sinus tachycardia Abdomen:? Mild Epigastric tenderness, no rebound, present but decreased bowel sounds, soft, protuberant obese Extremities:? No edema, palpable pedal pulse Neuro:? Patient is awake, alert, answers to questions appropriately and follows commands Skin:? No skin lesions noted Psych:? Normal orientation, normal speech and affect Const: Other: Patient appears uncomfortable, significantly ill-appearing, bilious emesis on hospital gow, , male. HENMT: Face/Nose/Sinus: Normal nares present Mouth: Yes dry mucous membranes Eyes: General: appearance normal, both eyes and all related structures Sclera: sclerae normal Pupils: Equal, round and reactive pupils present EOM: EOMs intact bilaterally Resp: Effort & Inspection: normal respiratory effort Auscultation: clear to auscultation bilaterally Cardio: Rate: tachycardic (Mild 110-115) Rhythm: regular rhythm Other: S1-S2 present without murmur, rub, ectopy GI: Other: Abdomen rounded, but nondistended. Soft with tenderness in the epigastric region and left upper quadrant region. hypoactive bowel sounds in all quadrants. Skin: General skin exam: normal color and no rashes or lesions noted Wounds: no wounds Neuro: Cranial nerves: Yes Equal, round and reactive pupils present Speech: normal speech Motor exam (neuro): 5/5 motor strength present throughout Sensory Exam: normal sensation Other: A&O x4 Extrem: General: normal to inspection Psych: Mental Status: mental status grossly normal Affect: normal affect Other: Fair insight and judgment Objective Data Vital Signs Vital Signs: Vital Signs - 24 hr 05/20/25 15:00 05/20/25 15:00 05/20/25 16:00 Temperature 97.8 F Pulse Rate 103 H 102 H Respiratory Rate 22 H 25 H Blood Pressure 123/91 H 123/91 H Pulse Oximetry 98 99 96 Oxygen Delivery Room Air 05/20/25 16:00 05/20/25 16:00 05/20/25 16:53 Temperature 98.6 F Pulse Rate 102 H 105 H 103 H Respiratory Rate 23 H 24 H Blood Pressure 119/85 128/86 Pulse Oximetry 97 97 Oxygen Delivery 05/20/25 18:00 05/20/25 18:00 05/20/25 20:00 Temperature Pulse Rate 101 H 103 H 100 Respiratory Rate 18 Blood Pressure 126/86 Pulse Oximetry 98 Oxygen Delivery 05/20/25 20:00 05/20/25 21:00 05/20/25 22:00 Temperature 98.6 F Pulse Rate 102 H 102 H Respiratory Rate 24 H 20 Blood Pressure 115/82 126/90 Pulse Oximetry 98 96 97 Oxygen Delivery Room Air 05/20/25 22:00 05/20/25 23:00 05/21/25 00:00 Temperature 99.6 F Pulse Rate 102 H 101 H 99 Respiratory Rate 24 H Blood Pressure 122/78 Pulse Oximetry 96 Oxygen Delivery 05/21/25 00:00 05/21/25 00:00 05/21/25 01:00 Temperature 99.5 F Pulse Rate 99 98 Respiratory Rate 19 21 H Blood Pressure 138/81 119/84 Pulse Oximetry 97 93 96 Oxygen Delivery Room Air 05/21/25 02:00 05/21/25 02:00 05/21/25 03:00 Temperature 98.9 F Pulse Rate 100 100 97 Respiratory Rate 20 22 H Blood Pressure 135/89 126/80 Pulse Oximetry 98 97 Oxygen Delivery 05/21/25 04:00 05/21/25 04:00 05/21/25 04:00 Temperature 98.6 F Pulse Rate 96 95 Respiratory Rate 22 H Blood Pressure 127/84 Pulse Oximetry 99 97 Oxygen Delivery Room Air 05/21/25 05:00 05/21/25 06:00 05/21/25 06:00 Temperature 98.6 F Pulse Rate 93 93 93 Respiratory Rate 20 20 Blood Pressure 118/86 120/75 Pulse Oximetry 97 96 Oxygen Delivery 05/21/25 07:00 05/21/25 08:00 05/21/25 08:00 Temperature Pulse Rate 97 101 H 110 H Respiratory Rate 19 21 H Blood Pressure 121/77 Pulse Oximetry 98 98 Oxygen Delivery 05/21/25 09:00 05/21/25 10:00 05/21/25 10:00 Temperature Pulse Rate 93 97 95 Respiratory Rate 18 21 H Blood Pressure Pulse Oximetry 97 100 Oxygen Delivery 05/21/25 10:35 05/21/25 10:59 05/21/25 11:00 Temperature Pulse Rate 96 94 Respiratory Rate 17 17 Blood Pressure 132/79 120/80 Pulse Oximetry 100 99 Oxygen Delivery Room Air 05/21/25 12:00 05/21/25 12:00 05/21/25 13:00 Temperature Pulse Rate 96 97 94 Respiratory Rate 18 20 Blood Pressure 120/80 108/71 Pulse Oximetry 97 97 Oxygen Delivery 05/21/25 14:00 05/21/25 14:00 Temperature Pulse Rate 100 90 Respiratory Rate 21 H Blood Pressure 120/79 Pulse Oximetry 98 Oxygen Delivery Intake/Output Intake/Output: Intake & Output 05/18/25 05/19/25 05/20/25 05/21/25 23:59 23:59 23:59 23:59 Intake Total 4510.8 4577.4669 2637.9 Output Total 1925 2600 2600 Balance 2585.8 1608.4667 37.9 Meds/Results Medications: Active Medications Generic Name Dose Route Start Last Admin Trade Name Freq PRN Reason Stop Dose Admin Acetaminophen 650 mg 05/19/25 12:55 Acetaminophen 325 Mg Tablet PO Q4H PRN Mild Pain (1-3) or Fever Atorvastatin Calcium 80 mg 05/21/25 09:00 05/21/25 09:00 Atorvastatin 40 Mg Tablet PO 80 mg DAILY BEBETO Administration Dextrose 12.5 gm 05/19/25 12:14 Dextrose 50% 25 Gm/50 Ml Syringe IV PUSH PRN PRN Hypoglycemia Protocol Fenofibrate 145 mg 05/21/25 09:00 05/21/25 09:00 Fenofibrate 145 Mg Tablet PO 145 mg QAM BEBETO Administration Fentanyl Citrate 25 mcg 05/19/25 14:14 Fentanyl Citrate Inj (*Crx) 100 Mcg/2 Ml Vial IV PUSH Q3H PRN Pain Rated 6 or Greater Glucagon 1 mg 05/19/25 12:14 Glucagon For Inj 1 Mg Vial IM PRN PRN Hypoglycemia Protocol Glucose 15 gm 05/19/25 12:14 Glucose Oral Gel 15 Gm Of Glucse In 37.5 Gm Tube PO PRN PRN Hypoglycemia Protocol Heparin Sodium (Porcine) 5,000 units 05/19/25 22:00 05/21/25 13:57 Heparin Sodium 5,000 Units/Ml Vial SUB-Q 5,000 units Q8HR BEBETO Administration Insulin Human Regular 100 100 mls @ 11.5 mls/hr 05/19/25 12:15 05/21/25 14:06 units/ Sodium Chloride IV CONT 11.5 units/hr .Q8H42M BEBETO 11.5 mls/hr Protocol Titration 11.5 UNITS/HR Dextrose 1,000 mls @ 100 mls/hr 05/19/25 12:14 Dextrose 5% 1,000 Ml IVPB PRN PRN Hypoglycemia Protocol Potassium Chloride/Dextrose/Sod Cl 1,000 mls @ 150 mls/hr 05/19/25 14:35 05/21/25 10:33 Kcl 20 Meq/D5/0.45% Sod Chl IV CONT 150 mls/hr .Q6H40M BEBETO Administration Levothyroxine Sodium 75 mcg 05/22/25 06:30 Levothyroxine Sodium 75 Mcg Tablet PO DAILY@0630 [facility] Ondansetron HCl 4 mg 05/19/25 12:55 05/20/25 08:50 Ondansetron Inj 4 Mg/2 Ml Vial IV PUSH 4 mg Q4H PRN Administration Nausea Pantoprazole Sodium 40 mg 05/20/25 09:00 05/21/25 09:08 Pantoprazole Sodium Iv 40 Mg Vial IV PUSH 40 mg Q12H BEBETO Administration Polyethylene Glycol 17 gm 05/21/25 09:00 05/21/25 09:07 Polyethylene Glycol 3350 17 Gm Powd.Pack PO 17 gm QAM BEBETO Administration Radiology Results: ITS Impressions Chest X-Ray 05/19/25 12:24 IMPRESSION: 1. No acute cardiopulmonary findings given portable technique. Abdomen/Pelvis CT 05/19/25 12:43 IMPRESSION: 1. Severe pancreatitis and/or gastroduodenitis. Abdomen X-Ray 05/21/25 13:15 Impression: 1. Nonspecific bowel gas pattern Labs Labs: Laboratory Results - last 24 hr 05/19/25 05/20/25 05/20/25 14:41 15:03 15:57 WBC RBC Hgb Hct MCV MCH MCHC RDW Plt Count MPV Immature Gran % (Auto) Neut % (Auto) Lymph % (Auto) [place] % (Auto) Eos % (Auto) Baso % (Auto) Lymph # (Auto) [place] # (Auto) Eos # (Auto) Baso # (Auto) Abs Immat Gran (auto) Absolute Neuts (auto) Absolute Nucleated RBC Total Counted Neutrophils % (Manual) Band Neutrophils % Lymphocytes % (Manual) Monocytes % (Manual) Eosinophils % (Manual) Basophils % (Manual) Myelocytes % Nucleated RBC % Abs Neuts (Manual) Abs Lymphs (Manual) Abs Monocytes (Manual) Absolute Eos (Manual) Abs Basophils (Manual) Smudge Cells Platelet Estimate Hypochromasia Anisocytosis Microcytosis Codorus Cells Schistocytes Sodium 131 L Potassium 3.9 Chloride 106 Carbon Dioxide 19 L Anion Gap 6 BUN 22 H Creatinine 1.07 Estim Creat Clear Calc 89 Estimated GFR > 60 Glucose 275 H POC Capillary Glucose 324 H Calcium 8.1 L Phosphorus Magnesium Triglycerides 2333 H Lipase Urine Chloride <20 05/20/25 05/20/25 05/20/25 15:58 17:07 18:06 WBC RBC Hgb Hct MCV MCH MCHC RDW Plt Count MPV Immature Gran % (Auto) Neut % (Auto) Lymph % (Auto) [place] % (Auto) Eos % (Auto) Baso % (Auto) Lymph # (Auto) [place] # (Auto) Eos # (Auto) Baso # (Auto) Abs Immat Gran (auto) Absolute Neuts (auto) Absolute Nucleated RBC Total Counted Neutrophils % (Manual) Band Neutrophils % Lymphocytes % (Manual) Monocytes % (Manual) Eosinophils % (Manual) Basophils % (Manual) Myelocytes % Nucleated RBC % Abs Neuts (Manual) Abs Lymphs (Manual) Abs Monocytes (Manual) Absolute Eos (Manual) Abs Basophils (Manual) Smudge Cells Platelet Estimate Hypochromasia Anisocytosis Microcytosis Hina Cells Schistocytes Sodium Potassium Chloride Carbon Dioxide Anion Gap BUN Creatinine Estim Creat Clear Calc Estimated GFR Glucose POC Capillary Glucose 285 H 264 H 209 H Calcium Phosphorus Magnesium Triglycerides Lipase Urine Chloride 05/20/25 05/20/25 05/20/25 19:17 20:08 20:18 WBC RBC Hgb Hct MCV MCH MCHC RDW Plt Count MPV Immature Gran % (Auto) Neut % (Auto) Lymph % (Auto) [place] % (Auto) Eos % (Auto) Baso % (Auto) Lymph # (Auto) [place] # (Auto) Eos # (Auto) Baso # (Auto) Abs Immat Gran (auto) Absolute Neuts (auto) Absolute Nucleated RBC Total Counted Neutrophils % (Manual) Band Neutrophils % Lymphocytes % (Manual) Monocytes % (Manual) Eosinophils % (Manual) Basophils % (Manual) Myelocytes % Nucleated RBC % Abs Neuts (Manual) Abs Lymphs (Manual) Abs Monocytes (Manual) Absolute Eos (Manual) Abs Basophils (Manual) Smudge Cells Platelet Estimate Hypochromasia Anisocytosis Microcytosis Codorus Cells Schistocytes Sodium 136 L Potassium 3.3 L Chloride 108 H Carbon Dioxide 22 Anion Gap 6 BUN 21 H Creatinine 1.01 Estim Creat Clear Calc 94 Estimated GFR > 60 Glucose 138 H POC Capillary Glucose 163 H 156 H Calcium 8.2 L Phosphorus Magnesium Triglycerides Lipase Urine Chloride 05/20/25 05/20/25 05/20/25 21:11 21:57 23:15 WBC RBC Hgb Hct MCV MCH MCHC RDW Plt Count MPV Immature Gran % (Auto) Neut % (Auto) Lymph % (Auto) [place] % (Auto) Eos % (Auto) Baso % (Auto) Lymph # (Auto) [place] # (Auto) Eos # (Auto) Baso # (Auto) Abs Immat Gran (auto) Absolute Neuts (auto) Absolute Nucleated RBC Total Counted Neutrophils % (Manual) Band Neutrophils % Lymphocytes % (Manual) Monocytes % (Manual) Eosinophils % (Manual) Basophils % (Manual) Myelocytes % Nucleated RBC % Abs Neuts (Manual) Abs Lymphs (Manual) Abs Monocytes (Manual) Absolute Eos (Manual) Abs Basophils (Manual) Smudge Cells Platelet Estimate Hypochromasia Anisocytosis Microcytosis Hina Cells Schistocytes Sodium Potassium Chloride Carbon Dioxide Anion Gap BUN Creatinine Estim Creat Clear Calc Estimated GFR Glucose POC Capillary Glucose 161 H 167 H 212 H Calcium Phosphorus Magnesium Triglycerides Lipase Urine Chloride 05/21/25 05/21/25 05/21/25 00:04 00:22 01:01 WBC RBC Hgb Hct MCV MCH MCHC RDW Plt Count MPV Immature Gran % (Auto) Neut % (Auto) Lymph % (Auto) [place] % (Auto) Eos % (Auto) Baso % (Auto) Lymph # (Auto) [place] # (Auto) Eos # (Auto) Baso # (Auto) Abs Immat Gran (auto) Absolute Neuts (auto) Absolute Nucleated RBC Total Counted Neutrophils % (Manual) Band Neutrophils % Lymphocytes % (Manual) Monocytes % (Manual) Eosinophils % (Manual) Basophils % (Manual) Myelocytes % Nucleated RBC % Abs Neuts (Manual) Abs Lymphs (Manual) Abs Monocytes (Manual) Absolute Eos (Manual) Abs Basophils (Manual) Smudge Cells Platelet Estimate Hypochromasia Anisocytosis Microcytosis Hina Cells Schistocytes Sodium 134 L Potassium 3.3 L Chloride 107 Carbon Dioxide 16 L Anion Gap 11 BUN 18 Creatinine 0.91 Estim Creat Clear Calc 103 Estimated GFR > 60 Glucose 231 H POC Capillary Glucose 255 H 264 H Calcium 7.8 L Phosphorus Magnesium Triglycerides Lipase Urine Chloride 05/21/25 05/21/25 05/21/25 01:48 02:44 03:57 WBC 4.5 RBC 3.02 L Hgb 9.4 L D Hct 25.2 L MCV 83.4 MCH 31.1 D MCHC 37.3 H RDW 14.6 H Plt Count 183 MPV 10.6 H Immature Gran % (Auto) Not Reportable Neut % (Auto) Not Reportable Lymph % (Auto) Not Reportable [place] % (Auto) Not Reportable Eos % (Auto) Not Reportable Baso % (Auto) Not Reportable Lymph # (Auto) Not Reportable [place] # (Auto) Not Reportable Eos # (Auto) Not Reportable Baso # (Auto) Not Reportable Abs Immat Gran (auto) Not Reportable Absolute Neuts (auto) Not Reportable Absolute Nucleated RBC Not Reportable Total Counted 100 Neutrophils % (Manual) 64 Band Neutrophils % 7 H Lymphocytes % (Manual) 20.0 Monocytes % (Manual) 4 Eosinophils % (Manual) 2 Basophils % (Manual) 2 H Myelocytes % 1 Nucleated RBC % Not Reportable Abs Neuts (Manual) 3.19 Abs Lymphs (Manual) 0.90 L Abs Monocytes (Manual) 0.18 Absolute Eos (Manual) 0.09 Abs Basophils (Manual) 0.09 Smudge Cells Present Platelet Estimate Adequate Hypochromasia 1+ Anisocytosis 1+ Microcytosis 1+ Hina Cells Occasional Schistocytes Rare Sodium 133 L Potassium 3.3 L Chloride 107 Carbon Dioxide 18 L Anion Gap 8 BUN 18 Creatinine 0.86 Estim Creat Clear Calc 109 Estimated GFR > 60 Glucose 233 H POC Capillary Glucose 283 H 261 H Calcium 7.9 L Phosphorus 1.7 L Magnesium 2.0 Triglycerides 1844 H Lipase 644 H Urine Chloride 05/21/25 05/21/25 05/21/25 05:04 06:14 06:59 WBC RBC Hgb Hct MCV MCH MCHC RDW Plt Count MPV Immature Gran % (Auto) Neut % (Auto) Lymph % (Auto) [place] % (Auto) Eos % (Auto) Baso % (Auto) Lymph # (Auto) [place] # (Auto) Eos # (Auto) Baso # (Auto) Abs Immat Gran (auto) Absolute Neuts (auto) Absolute Nucleated RBC Total Counted Neutrophils % (Manual) Band Neutrophils % Lymphocytes % (Manual) Monocytes % (Manual) Eosinophils % (Manual) Basophils % (Manual) Myelocytes % Nucleated RBC % Abs Neuts (Manual) Abs Lymphs (Manual) Abs Monocytes (Manual) Absolute Eos (Manual) Abs Basophils (Manual) Smudge Cells Platelet Estimate Hypochromasia Anisocytosis Microcytosis Hina Cells Schistocytes Sodium Potassium Chloride Carbon Dioxide Anion Gap BUN Creatinine Estim Creat Clear Calc Estimated GFR Glucose POC Capillary Glucose 240 H 261 H 241 H Calcium Phosphorus Magnesium Triglycerides Lipase Urine Chloride 05/21/25 05/21/25 05/21/25 08:14 08:15 09:14 WBC RBC Hgb Hct MCV MCH MCHC RDW Plt Count MPV Immature Gran % (Auto) Neut % (Auto) Lymph % (Auto) [place] % (Auto) Eos % (Auto) Baso % (Auto) Lymph # (Auto) [place] # (Auto) Eos # (Auto) Baso # (Auto) Abs Immat Gran (auto) Absolute Neuts (auto) Absolute Nucleated RBC Total Counted Neutrophils % (Manual) Band Neutrophils % Lymphocytes % (Manual) Monocytes % (Manual) Eosinophils % (Manual) Basophils % (Manual) Myelocytes % Nucleated RBC % Abs Neuts (Manual) Abs Lymphs (Manual) Abs Monocytes (Manual) Absolute Eos (Manual) Abs Basophils (Manual) Smudge Cells Platelet Estimate Hypochromasia Anisocytosis Microcytosis Codorus Cells Schistocytes Sodium 133 L Potassium 3.2 L Chloride 107 Carbon Dioxide 21 L Anion Gap 5 BUN 15 Creatinine 0.80 Estim Creat Clear Calc 103 Estimated GFR > 60 Glucose 222 H POC Capillary Glucose 229 H 222 H Calcium 8.3 L Phosphorus Magnesium Triglycerides Lipase Urine Chloride 05/21/25 05/21/25 05/21/25 10:32 11:05 12:13 WBC RBC Hgb Hct MCV MCH MCHC RDW Plt Count MPV Immature Gran % (Auto) Neut % (Auto) Lymph % (Auto) [place] % (Auto) Eos % (Auto) Baso % (Auto) Lymph # (Auto) [place] # (Auto) Eos # (Auto) Baso # (Auto) Abs Immat Gran (auto) Absolute Neuts (auto) Absolute Nucleated RBC Total Counted Neutrophils % (Manual) Band Neutrophils % Lymphocytes % (Manual) Monocytes % (Manual) Eosinophils % (Manual) Basophils % (Manual) Myelocytes % Nucleated RBC % Abs Neuts (Manual) Abs Lymphs (Manual) Abs Monocytes (Manual) Absolute Eos (Manual) Abs Basophils (Manual) Smudge Cells Platelet Estimate Hypochromasia Anisocytosis Microcytosis Codorus Cells Schistocytes Sodium Potassium Chloride Carbon Dioxide Anion Gap BUN Creatinine Estim Creat Clear Calc Estimated GFR Glucose POC Capillary Glucose 259 H 310 H 310 H Calcium Phosphorus Magnesium Triglycerides Lipase Urine Chloride 10/05/21/25 05/21/25 12:34 13:02 14:00 WBC RBC Hgb Hct MCV MCH MCHC RDW Plt Count MPV Immature Gran % (Auto) Neut % (Auto) Lymph % (Auto) [place] % (Auto) Eos % (Auto) Baso % (Auto) Lymph # (Auto) [place] # (Auto) Eos # (Auto) Baso # (Auto) Abs Immat Gran (auto) Absolute Neuts (auto) Absolute Nucleated RBC Total Counted Neutrophils % (Manual) Band Neutrophils % Lymphocytes % (Manual) Monocytes % (Manual) Eosinophils % (Manual) Basophils % (Manual) Myelocytes % Nucleated RBC % Abs Neuts (Manual) Abs Lymphs (Manual) Abs Monocytes (Manual) Absolute Eos (Manual) Abs Basophils (Manual) Smudge Cells Platelet Estimate Hypochromasia Anisocytosis Microcytosis Codorus Cells Schistocytes Sodium 131 L Potassium 3.9 Chloride 103 Carbon Dioxide 19 L Anion Gap 9 BUN 13 Creatinine 0.74 Estim Creat Clear Calc 111 Estimated GFR > 60 Glucose 320 H POC Capillary Glucose 367 H 350 H Calcium 8.6 Phosphorus Magnesium Triglycerides Lipase Urine Chloride Quality VTE Prophylaxis VTE prophylaxis: pharmacologic ordered
[2025-05-21 16:54] LABS: Anion Gap 7 mmol/L (4-12); Blood Urea Nitrogen 12 mg/dL (9-20); Calcium 8.7 mg/dL (8.4-10.2); Carbon Dioxide 24 mmol/L (22-30); Chloride 102 mmol/L (98-107); Estimated CRCL calculation 113 ml/min; Estimated Glomerular Filt Rate > 60; Glucose 292 mg/dL (65-110); Potassium 3.4 mmol/L (3.4-5.0); Sodium 133 mmol/L (137-145)
--- NOTE | 2025-05-21 18:44 | PC.NURSE ---
pt refused blood pressure at 8, 9, 10, and 12. Pt kept removing blood pressure cuff, blood pressure not captured at these hours.
[2025-05-21] MEDS: INSULIN HUMAN REGULAR (*BKC) 100 UNITS in SODIUM CHLORIDE 0.9% IV 99 ML 16 UNITS IV CONT (18:50)
[2025-05-21] MEDS: POTASSIUM CHLORIDE INJ 40 MEQ in SODIUM CHLORIDE 0.9% IV 500 ML 130 MEQ IVPB (19:39)
[2025-05-21 20:56] LABS: Anion Gap 8 mmol/L (4-12); Blood Urea Nitrogen 11 mg/dL (9-20); Calcium 8.6 mg/dL (8.4-10.2); Carbon Dioxide 22 mmol/L (22-30); Chloride 103 mmol/L (98-107); Estimated CRCL calculation 127 ml/min; Estimated Glomerular Filt Rate > 60; Glucose 200 mg/dL (65-110); Potassium 3.3 mmol/L (3.4-5.0); Sodium 133 mmol/L (137-145)
[2025-05-21] MEDS: POTASSIUM CHLORIDE 20 MEQ PACKET (FOR LIQUID) 40 MEQ PO (21:44)
[2025-05-22] VITALS (28 sets, daily range): BP systolic 93–146; BP diastolic 65–110; PULSE 87–108; RESP 11–29; TEMP 36.6–36.9; O2SAT 95–100
[2025-05-22 00:37] LABS: Anion Gap 8 mmol/L (4-12); Blood Urea Nitrogen 9 mg/dL (9-20); Calcium 8.8 mg/dL (8.4-10.2); Carbon Dioxide 23 mmol/L (22-30); Chloride 103 mmol/L (98-107); Estimated CRCL calculation 129 ml/min; Estimated Glomerular Filt Rate > 60; Glucose 246 mg/dL (65-110); Potassium 3.7 mmol/L (3.4-5.0); Sodium 134 mmol/L (137-145)
[2025-05-22] MEDS: KCL 20 MEQ/D5/0.45% SOD CHL 1,000 ML 150 ML IV CONT ×3 (01:10→17:59)
[2025-05-22 04:05] LABS: Hematocrit 27.4 % (42.0-52.0); Hemoglobin 9.5 g/dL (14.0-18.0); Mean Corpuscular HGB Conc 34.7 g/dl (32-36); Mean Corpuscular Hemoglobin 29.7 pg (26-34); Mean Corpuscular Volume 85.6 fl (80-100); Platelet Count Result 198 k/mm3 (150-375); Red Blood Count 3.20 M/mm3 (4.6-6.20); White Blood Count 5.4 K/mm3 (4.5-10.0)
[2025-05-22 04:19] LABS: Anion Gap 8 mmol/L (4-12); Blood Urea Nitrogen 8 mg/dL (9-20); Calcium 8.9 mg/dL (8.4-10.2); Carbon Dioxide 24 mmol/L (22-30); Chloride 105 mmol/L (98-107); Estimated CRCL calculation 122 ml/min; Estimated Glomerular Filt Rate > 60; Glucose 170 mg/dL (65-110); Lipase 607 U/L (23-300); Magnesium 1.9 mg/dL (1.6-2.3); Potassium 3.5 mmol/L (3.4-5.0); Sodium 137 mmol/L (137-145)
[2025-05-22 04:31] LABS: Triglycerides 1303 mg/dL (<150)
[2025-05-22 04:37] LABS: Anisocytosis 1+; Band Neutrophils Percent 3 % (0-6); Eosinophils Absolute Manual 0.16 K/mm3 (0.02-0.50); Eosinophils Percent Manual 3 % (0-4); Lymphocytes Absolute Manual 1.02 K/mm3 (1.1-4.5); Lymphocytes Percent Manual 19.0 % (18-44); Monocytes Absolute Manual 0.10 K/mm3 (0.1-0.90); Monocytes Percent Manual 2 % (3-9); Neutrophils Absolute Manual 4.10 K/mm3 (1.3-6.7); Neutrophils Percent Manual 73 % (46-73); Schistocytes None Seen; Tear Drop Cells 2+; Total Cells Counted 100
[2025-05-22] MEDS: LEVOTHYROXINE SODIUM 75 MCG TABLET PO (06:23)
[2025-05-22] MEDS: INSULIN HUMAN REGULAR (*BKC) 100 UNITS in SODIUM CHLORIDE 0.9% IV 99 ML IV CONT ×2 (08:13→17:55)
[2025-05-22] MEDS: ATORVASTATIN 40 MG TABLET 80 MG PO (08:40)
[2025-05-22] MEDS: POTASSIUM CHLORIDE 20 MEQ PACKET (FOR LIQUID) 40 MEQ PO (08:40)
[2025-05-22] MEDS: FENOFIBRATE 145 MG TABLET PO (08:40)
[2025-05-22] MEDS: PANTOPRAZOLE SODIUM IV 40 MG VIAL IV PUSH ×2 (08:40→20:22)
--- NOTE | 2025-05-22 09:39 | P.PNINT_ITS ---
Progress Note: A&P Assessment and Plan (1) DKA (diabetic ketoacidosis): Qualifiers: Diabetes mellitus type: type 2 Diabetes mellitus complication detail: without coma Qualified Code(s): E11.10 - Type 2 diabetes mellitus with ketoacidosis without coma Code(s): E11.10 - Type 2 diabetes mellitus with ketoacidosis without coma Status: Acute Assessment and Plan: 05/19: Patient presented with epigastric tenderness, nausea, vomiting, decreased oral intake for 3-4 days. Recently diagnosed with diabetes about 3 months back, has been controlling his diabetes with diet and holistic approach/homeopathy. Patient was found to be tachycardic, tachypneic, with a blood sugars of 798, potassium of 7.0, creatinine of 2.74 Patient was treated with IV insulin IV fluids. His anion gap has closed but IV insulin be continued for hypertriglyceridemia. Advance diet to full liquid Patient will be transition to subcutaneous insulin once triglyceride levels are improved (2) DM2 (diabetes mellitus, type 2): Qualifiers: Diabetes mellitus continuous churn buttermaker insulin use: without group home use Diabetes mellitus complication status: with ketoacidosis Diabetes mellitus complication detail: without coma Qualified Code(s): E11.10 - Type 2 diabetes mellitus with ketoacidosis without coma Code(s): E11.9 - Type 2 diabetes mellitus without complications Status: Acute Assessment and Plan: Patient stated that he was diagnosed with diabetes 3-4 months ago but not on any treatment right now. Patient used to be on metformin -hemoglobin A1c this admission is 11.7 Consulted life educator and dietitian evaluate the patient (3) Hypertriglyceridemia: Code(s): E78.1 - Pure hyperglyceridemia Status: Acute Assessment and Plan: Patient has history of hypertriglyceridemia and was on fenofibric acid and statin the past but has not taken anything in last 3-4 months. Hypertriglyceridemia with triglycerides have a lot of >2625 Likely the cause of his pancreatitis He is clinically improved and feels better. Triglyceride level is down to 1300 I will continue with IV insulin infusion and IV fluids with dextrose. Repeat triglyceride level in the evening Continue monitor triglyceride levels On clear liquid diet and will advance to full liquid Contain fenofibrate and statin (4) REGULO (acute kidney injury): Code(s): N17.9 - Acute kidney failure, unspecified Status: Acute Assessment and Plan: Acute kidney injury, likely related to hypovolemia,, inflammatory changes related to pancreatitis -patient received 4 L IV fluid bolus and is on maintenance IV fluids -creatinine has improved and is down in normal range -no hydronephrosis noticed on CT abdomen and pelvis -continue to monitor renal function, electrolytes and urine output (5) Hyperkalemia: Code(s): E87.5 - Hyperkalemia Status: Acute Assessment and Plan: Hyperkalemia likely is multifactorial, acute kidney injury, metabolic ketoacidosis due DKA -initial pH was 6.96, patient received 3 amps of bicarb, Lokelma, insulin and D50 -patient now hypokalemic and potassium is being replaced (6) HLD (hyperlipidemia): Qualifiers: Hyperlipidemia type: unspecified Qualified Code(s): E78.5 - Hyperlipidemia, unspecified Code(s): E78.5 - Hyperlipidemia, unspecified Status: Acute Assessment and Plan: Hypertriglyceridemia, elevated cholesterol -Will start statins once more stable (7) Pancreatitis: Qualifiers: Acute pancreatitis complication: no infection or necrosis Chronicity: acute Pancreatitis type: unspecified pancreatitis type Qualified Code(s): K85.90 - Acute pancreatitis without necrosis or infection, unspecified Code(s): K85.90 - Acute pancreatitis without necrosis or infection, unspecified Status: Acute Assessment and Plan: Acute pancreatitis related to hypertriglyceridemia Continue IV fluid and insulin infusion Advance diet Pain control (8) Electrolyte abnormality: Code(s): E87.8 - Other disorders of electrolyte and fluid balance, not elsewhere classified Status: Acute Assessment and Plan: Calcium replacement ordered Potassium and phosphorous replacement ordered Magnesium replacement ordered Monitor electrolytes (9) Hypothyroidism: Code(s): E03.9 - Hypothyroidism, unspecified Status: Acute Assessment and Plan: Resume levothyroxine Thyroid function test reviewed (10) Bipolar mood disorder: Code(s): F31.9 - Bipolar disorder, unspecified Status: Acute Assessment and Plan: Patient has a distant history of bipolar mood disorder requiring hospitalization age of 17. He states he is not on any treatment for last 20 years. Patient's mother is adamant the patient is depressed with episodes of gucci. Patient at this time on exam and during my interview does not exhibit any signs of gucci and does not appear overtly depressed. He also denies any suicidal homicidal ideation. Currently I will focus on treating his metabolic and medical problems. Once patient is stabilized and medical issues are resolved will consider psychiatric consult. Plan DVT prophylaxis: Heparin Stress ulcer prophylaxis:Protonix Nutrition: Full liquid diet Code Status: Full Code Incentive spirometry Up in chair Critical Care Time Spent: 30 minutes Due to a high probability of clinically significant, life threatening deterioration, the patient required my highest level of preparedness to intervene emergently and I personally spent this critical care time directly and personally managing the patient. This critical care time included obtaining a history; examining the patient; pulse oximetry; ordering and review of studies; arranging urgent treatment with development of a management plan; evaluation of patient's response to treatment; frequent reassessment; and discussions with other providers. It was exclusive of separately billable procedures and treating other patients and teaching time. Please see Assessment and Plan section and the rest of the note for further information on patient assessment and treatment This dictation may have been done utilizing a voice recognition system. Attempts have been made to correct errors. However, there may be uncorrected grammatical, spelling, and recognitions errors present. Subjective Date/time seen: 05/22/25 He states he feels better this morning. He had a bowel movement last night. He is tolerating liquid diet. No nausea vomiting. He has states that he feels his belly is bloated and he is having some dyspepsia were about from that he feels better and denies any specific complaint. Denies any abdominal pain. All other systems were reviewed and were negative. He is afebrile. His vital signs stable. He continues to remain IV insulin and IV fluids. Review of Systems Review of Systems: All systems reviewed & are unremarkable except as noted in HPI and below Exam Narrative: General: Ill-appearing gentleman, HEENT:? Pupils equal and reactive, sclera is clear, moist oral mucous Neck:? Supple Respiratory:?Clear to auscultation bilaterally, no wheezing or rales Cardiac:? Sinus tachycardia Abdomen:? Mild Epigastric tenderness, no rebound, present but decreased bowel sounds, soft, protuberant obese Extremities:? No edema, palpable pedal pulse Neuro:? Patient is awake, alert, answers to questions appropriately and follows commands Skin:? No skin lesions noted Psych:? Normal orientation, normal speech and affect Objective Data Vital Signs Vital Signs: Vital Signs - 24 hr 05/21/25 10:00 05/21/25 10:00 05/21/25 10:35 Temperature Pulse Rate 97 95 Respiratory Rate 21 H Blood Pressure 132/79 Pulse Oximetry 100 Oxygen Delivery Fraction of Inspired Oxygen 05/21/25 10:59 05/21/25 11:00 05/21/25 12:00 Temperature Pulse Rate 96 94 96 Respiratory Rate 17 17 18 Blood Pressure 120/80 120/80 Pulse Oximetry 100 99 97 Oxygen Delivery Room Air Fraction of Inspired Oxygen 05/21/25 12:00 05/21/25 13:00 05/21/25 14:00 Temperature Pulse Rate 97 94 100 Respiratory Rate 20 21 H Blood Pressure 108/71 120/79 Pulse Oximetry 97 98 Oxygen Delivery Fraction of Inspired Oxygen 05/21/25 14:00 05/21/25 15:00 05/21/25 16:00 Temperature Pulse Rate 90 96 98 Respiratory Rate 18 18 Blood Pressure 116/74 120/84 Pulse Oximetry 100 100 Oxygen Delivery Fraction of Inspired Oxygen 05/21/25 16:00 05/21/25 16:00 05/21/25 16:00 Temperature 36.8 C Pulse Rate 103 H Respiratory Rate Blood Pressure Pulse Oximetry 99 Oxygen Delivery Room Air Fraction of Inspired Oxygen 05/21/25 17:00 05/21/25 18:00 05/21/25 18:00 Temperature Pulse Rate 93 96 99 Respiratory Rate 19 19 Blood Pressure 107/77 118/89 Pulse Oximetry 98 98 Oxygen Delivery Fraction of Inspired Oxygen 05/21/25 19:00 05/21/25 20:00 05/21/25 20:00 Temperature 37.2 C Pulse Rate 101 H 94 Respiratory Rate 21 H 19 Blood Pressure 129/89 130/73 Pulse Oximetry 98 99 100 Oxygen Delivery Room Air Fraction of Inspired Oxygen 05/21/25 20:00 05/21/25 20:02 05/21/25 21:00 Temperature Pulse Rate 99 99 91 Respiratory Rate 22 H 20 Blood Pressure 125/74 Pulse Oximetry 99 99 Oxygen Delivery Room Air Fraction of Inspired Oxygen 21 05/21/25 22:00 05/21/25 22:00 05/21/25 23:00 Temperature Pulse Rate 94 94 94 Respiratory Rate 17 20 Blood Pressure 130/80 115/60 Pulse Oximetry 99 96 Oxygen Delivery Fraction of Inspired Oxygen 05/22/25 00:00 05/22/25 00:00 05/22/25 00:00 Temperature 36.6 C Pulse Rate 99 99 Respiratory Rate 23 H Blood Pressure 111/77 Pulse Oximetry 97 97 Oxygen Delivery Room Air Fraction of Inspired Oxygen 05/22/25 01:00 05/22/25 02:00 05/22/25 02:00 Temperature Pulse Rate 101 H 92 92 Respiratory Rate 26 H 20 Blood Pressure 124/77 118/66 Pulse Oximetry 98 96 Oxygen Delivery Fraction of Inspired Oxygen 05/22/25 03:00 05/22/25 04:00 05/22/25 04:00 Temperature 36.7 C Pulse Rate 91 90 Respiratory Rate 20 19 Blood Pressure 103/69 121/80 Pulse Oximetry 96 98 98 Oxygen Delivery Room Air Fraction of Inspired Oxygen 05/22/25 04:00 05/22/25 05:00 05/22/25 06:00 Temperature Pulse Rate 90 88 87 Respiratory Rate 18 Blood Pressure 109/76 Pulse Oximetry 97 Oxygen Delivery Fraction of Inspired Oxygen 05/22/25 06:00 05/22/25 07:00 05/22/25 08:00 Temperature 36.8 C Pulse Rate 87 104 H 98 Respiratory Rate 18 29 H 23 H Blood Pressure 111/65 93/70 L 127/86 Pulse Oximetry 97 100 100 Oxygen Delivery Fraction of Inspired Oxygen 05/22/25 08:00 05/22/25 08:00 05/22/25 08:00 Temperature Pulse Rate 100 100 Respiratory Rate 16 Blood Pressure 93/70 L Pulse Oximetry 100 95 Oxygen Delivery Room Air Fraction of Inspired Oxygen 05/22/25 09:00 Temperature Pulse Rate 97 Respiratory Rate 11 L Blood Pressure 134/93 H Pulse Oximetry 100 Oxygen Delivery Fraction of Inspired Oxygen Intake/Output Intake/Output: Intake & Output 05/19/25 05/20/25 05/21/25 05/22/25 23:59 23:59 23:59 23:59 Intake Total 4510.8 4575.4667 4295.4 1828.5 Output Total 1925 2600 4250 3650 Balance 2585.8 1975.4667 45.4 -1821.5 Meds/Results Medications: Active Medications Generic Name Dose Route Start Last Admin Trade Name Freq PRN Reason Stop Dose Admin Acetaminophen 650 mg 05/19/25 12:55 Acetaminophen 325 Mg Tablet PO Q4H PRN Mild Pain (1-3) or Fever Atorvastatin Calcium 80 mg 05/21/25 09:00 05/22/25 08:40 Atorvastatin 40 Mg Tablet PO 80 mg DAILY BEBETO Administration Dextrose 12.5 gm 05/19/25 12:14 Dextrose 50% 25 Gm/50 Ml Syringe IV PUSH PRN PRN Hypoglycemia Protocol Fenofibrate 145 mg 05/21/25 09:00 05/22/25 08:40 Fenofibrate 145 Mg Tablet PO 145 mg QAM BEBETO Administration Fentanyl Citrate 25 mcg 05/19/25 14:14 Fentanyl Citrate Inj (*Crx) 100 Mcg/2 Ml Vial IV PUSH Q3H PRN Pain Rated 6 or Greater Glucagon 1 mg 05/19/25 12:14 Glucagon For Inj 1 Mg Vial IM PRN PRN Hypoglycemia Protocol Glucose 15 gm 05/19/25 12:14 Glucose Oral Gel 15 Gm Of Glucse In 37.5 Gm Tube PO PRN PRN Hypoglycemia Protocol Heparin Sodium (Porcine) 5,000 units 05/19/25 22:00 05/22/25 06:23 Heparin Sodium 5,000 Units/Ml Vial SUB-Q 5,000 units Q8HR BEBETO Administration Insulin Human Regular 100 100 mls @ 6 mls/hr 05/19/25 12:15 05/22/25 08:36 units/ Sodium Chloride IV CONT 6 units/hr .[id number] BEBETO 6 mls/hr Protocol Titration 6 UNITS/HR Dextrose 1,000 mls @ 100 mls/hr 05/19/25 12:14 Dextrose 5% 1,000 Ml IVPB PRN PRN Hypoglycemia Protocol Potassium Chloride/Dextrose/Sod Cl 1,000 mls @ 150 mls/hr 05/19/25 14:35 05/22/25 08:14 Kcl 20 Meq/D5/0.45% Sod Chl IV CONT 150 mls/hr .Q6H40M BEBETO Administration Levothyroxine Sodium 75 mcg 05/22/25 06:30 05/22/25 06:23 Levothyroxine Sodium 75 Mcg Tablet PO 75 mcg DAILY@0630 BEBETO Administration Ondansetron HCl 4 mg 05/19/25 12:55 05/20/25 08:50 Ondansetron Inj 4 Mg/2 Ml Vial IV PUSH 4 mg Q4H PRN Administration Nausea Pantoprazole Sodium 40 mg 05/20/25 09:00 05/22/25 08:40 Pantoprazole Sodium Iv 40 Mg Vial IV PUSH 40 mg Q12H BEBETO Administration Polyethylene Glycol 17 gm 05/21/25 09:00 05/21/25 09:07 Polyethylene Glycol 3350 17 Gm Powd.Pack PO 17 gm QAM BEBETO Administration Radiology Results: ITS Impressions Chest X-Ray 05/19/25 12:24 IMPRESSION: 1. No acute cardiopulmonary findings given portable technique. Abdomen/Pelvis CT 05/19/25 12:43 IMPRESSION: 1. Severe pancreatitis and/or gastroduodenitis. Abdomen X-Ray 05/21/25 13:15 Impression: 1. Nonspecific bowel gas pattern Labs Labs: Laboratory Results - last 24 hr 05/19/25 05/21/25 05/21/25 14:41 10:32 11:05 WBC RBC Hgb Hct MCV MCH MCHC RDW Plt Count MPV Immature Gran % (Auto) Neut % (Auto) Lymph % (Auto) [place] % (Auto) Eos % (Auto) Baso % (Auto) Lymph # (Auto) [place] # (Auto) Eos # (Auto) Baso # (Auto) Abs Immat Gran (auto) Absolute Neuts (auto) Absolute Nucleated RBC Total Counted Neutrophils % (Manual) Band Neutrophils % Lymphocytes % (Manual) Monocytes % (Manual) Eosinophils % (Manual) Nucleated RBC % Abs Neuts (Manual) Abs Lymphs (Manual) Abs Monocytes (Manual) Absolute Eos (Manual) Platelet Estimate Anisocytosis Tear Drop Cells Schistocytes Sodium Potassium Chloride Carbon Dioxide Anion Gap BUN Creatinine Estim Creat Clear Calc Estimated GFR Glucose POC Capillary Glucose 259 H 310 H Calcium Phosphorus Magnesium Triglycerides Lipase Urine Chloride <20 05/21/25 05/21/25 05/21/25 12:13 12:34 13:02 WBC RBC Hgb Hct MCV MCH MCHC RDW Plt Count MPV Immature Gran % (Auto) Neut % (Auto) Lymph % (Auto) [place] % (Auto) Eos % (Auto) Baso % (Auto) Lymph # (Auto) [place] # (Auto) Eos # (Auto) Baso # (Auto) Abs Immat Gran (auto) Absolute Neuts (auto) Absolute Nucleated RBC Total Counted Neutrophils % (Manual) Band Neutrophils % Lymphocytes % (Manual) Monocytes % (Manual) Eosinophils % (Manual) Nucleated RBC % Abs Neuts (Manual) Abs Lymphs (Manual) Abs Monocytes (Manual) Absolute Eos (Manual) Platelet Estimate Anisocytosis Tear Drop Cells Schistocytes Sodium 131 L Potassium 3.9 Chloride 103 Carbon Dioxide 19 L Anion Gap 9 BUN 13 Creatinine 0.74 Estim Creat Clear Calc 111 Estimated GFR > 60 Glucose 320 H POC Capillary Glucose 310 H 367 H Calcium 8.6 Phosphorus Magnesium Triglycerides Lipase Urine Chloride 05/21/25 05/21/25 05/21/25 14:00 15:00 15:54 WBC RBC Hgb Hct MCV MCH MCHC RDW Plt Count MPV Immature Gran % (Auto) Neut % (Auto) Lymph % (Auto) [place] % (Auto) Eos % (Auto) Baso % (Auto) Lymph # (Auto) [place] # (Auto) Eos # (Auto) Baso # (Auto) Abs Immat Gran (auto) Absolute Neuts (auto) Absolute Nucleated RBC Total Counted Neutrophils % (Manual) Band Neutrophils % Lymphocytes % (Manual) Monocytes % (Manual) Eosinophils % (Manual) Nucleated RBC % Abs Neuts (Manual) Abs Lymphs (Manual) Abs Monocytes (Manual) Absolute Eos (Manual) Platelet Estimate Anisocytosis Tear Drop Cells Schistocytes Sodium Potassium Chloride Carbon Dioxide Anion Gap BUN Creatinine Estim Creat Clear Calc Estimated GFR Glucose POC Capillary Glucose 350 H 393 H 338 H Calcium Phosphorus Magnesium Triglycerides Lipase Urine Chloride 05/21/25 05/21/25 05/21/25 16:33 16:58 17:58 WBC RBC Hgb Hct MCV MCH MCHC RDW Plt Count MPV Immature Gran % (Auto) Neut % (Auto) Lymph % (Auto) [place] % (Auto) Eos % (Auto) Baso % (Auto) Lymph # (Auto) [place] # (Auto) Eos # (Auto) Baso # (Auto) Abs Immat Gran (auto) Absolute Neuts (auto) Absolute Nucleated RBC Total Counted Neutrophils % (Manual) Band Neutrophils % Lymphocytes % (Manual) Monocytes % (Manual) Eosinophils % (Manual) Nucleated RBC % Abs Neuts (Manual) Abs Lymphs (Manual) Abs Monocytes (Manual) Absolute Eos (Manual) Platelet Estimate Anisocytosis Tear Drop Cells Schistocytes Sodium 133 L Potassium 3.4 Chloride 102 Carbon Dioxide 24 Anion Gap 7 BUN 12 Creatinine 0.73 Estim Creat Clear Calc 113 Estimated GFR > 60 Glucose 292 H POC Capillary Glucose 276 H 223 H Calcium 8.7 Phosphorus 2.4 L Magnesium Triglycerides Lipase Urine Chloride 05/21/25 05/21/25 05/21/25 18:53 19:58 20:36 WBC RBC Hgb Hct MCV MCH MCHC RDW Plt Count MPV Immature Gran % (Auto) Neut % (Auto) Lymph % (Auto) [place] % (Auto) Eos % (Auto) Baso % (Auto) Lymph # (Auto) [place] # (Auto) Eos # (Auto) Baso # (Auto) Abs Immat Gran (auto) Absolute Neuts (auto) Absolute Nucleated RBC Total Counted Neutrophils % (Manual) Band Neutrophils % Lymphocytes % (Manual) Monocytes % (Manual) Eosinophils % (Manual) Nucleated RBC % Abs Neuts (Manual) Abs Lymphs (Manual) Abs Monocytes (Manual) Absolute Eos (Manual) Platelet Estimate Anisocytosis Tear Drop Cells Schistocytes Sodium 133 L Potassium 3.3 L Chloride 103 Carbon Dioxide 22 Anion Gap 8 BUN 11 Creatinine 0.64 L Estim Creat Clear Calc 127 Estimated GFR > 60 Glucose 200 H POC Capillary Glucose 228 H 222 H Calcium 8.6 Phosphorus Magnesium Triglycerides Lipase Urine Chloride 05/21/25 05/21/25 05/21/25 21:18 22:19 23:18 WBC RBC Hgb Hct MCV MCH MCHC RDW Plt Count MPV Immature Gran % (Auto) Neut % (Auto) Lymph % (Auto) [place] % (Auto) Eos % (Auto) Baso % (Auto) Lymph # (Auto) [place] # (Auto) Eos # (Auto) Baso # (Auto) Abs Immat Gran (auto) Absolute Neuts (auto) Absolute Nucleated RBC Total Counted Neutrophils % (Manual) Band Neutrophils % Lymphocytes % (Manual) Monocytes % (Manual) Eosinophils % (Manual) Nucleated RBC % Abs Neuts (Manual) Abs Lymphs (Manual) Abs Monocytes (Manual) Absolute Eos (Manual) Platelet Estimate Anisocytosis Tear Drop Cells Schistocytes Sodium Potassium Chloride Carbon Dioxide Anion Gap BUN Creatinine Estim Creat Clear Calc Estimated GFR Glucose POC Capillary Glucose 219 H 254 H 273 H Calcium Phosphorus Magnesium Triglycerides Lipase Urine Chloride 05/22/25 05/22/25 05/22/25 00:19 00:24 01:14 WBC RBC Hgb Hct MCV MCH MCHC RDW Plt Count MPV Immature Gran % (Auto) Neut % (Auto) Lymph % (Auto) [place] % (Auto) Eos % (Auto) Baso % (Auto) Lymph # (Auto) [place] # (Auto) Eos # (Auto) Baso # (Auto) Abs Immat Gran (auto) Absolute Neuts (auto) Absolute Nucleated RBC Total Counted Neutrophils % (Manual) Band Neutrophils % Lymphocytes % (Manual) Monocytes % (Manual) Eosinophils % (Manual) Nucleated RBC % Abs Neuts (Manual) Abs Lymphs (Manual) Abs Monocytes (Manual) Absolute Eos (Manual) Platelet Estimate Anisocytosis Tear Drop Cells Schistocytes Sodium 134 L Potassium 3.7 Chloride 103 Carbon Dioxide 23 Anion Gap 8 BUN 9 Creatinine 0.63 L Estim Creat Clear Calc 129 Estimated GFR > 60 Glucose 246 H POC Capillary Glucose 256 H 240 H Calcium 8.8 Phosphorus Magnesium Triglycerides Lipase Urine Chloride 05/22/25 05/22/25 05/22/25 02:25 03:34 03:46 WBC 5.4 RBC 3.20 L Hgb 9.5 L Hct 27.4 L MCV 85.6 MCH 29.7 MCHC 34.7 RDW 14.5 Plt Count 198 MPV 10.3 Immature Gran % (Auto) Not Reportable Neut % (Auto) Not Reportable Lymph % (Auto) Not Reportable [place] % (Auto) Not Reportable Eos % (Auto) Not Reportable Baso % (Auto) Not Reportable Lymph # (Auto) Not Reportable [place] # (Auto) Not Reportable Eos # (Auto) Not Reportable Baso # (Auto) Not Reportable Abs Immat Gran (auto) Not Reportable Absolute Neuts (auto) Not Reportable Absolute Nucleated RBC Not Reportable Total Counted 100 Neutrophils % (Manual) 73 Band Neutrophils % 3 Lymphocytes % (Manual) 19.0 Monocytes % (Manual) 2 L Eosinophils % (Manual) 3 Nucleated RBC % Not Reportable Abs Neuts (Manual) 4.10 Abs Lymphs (Manual) 1.02 L Abs Monocytes (Manual) 0.10 Absolute Eos (Manual) 0.16 Platelet Estimate Adequate Anisocytosis 1+ Tear Drop Cells 2+ Schistocytes None seen Sodium 137 Potassium 3.5 Chloride 105 Carbon Dioxide 24 Anion Gap 8 BUN 8 L Creatinine 0.67 L Estim Creat Clear Calc 122 Estimated GFR > 60 Glucose 170 H POC Capillary Glucose 211 H 182 H Calcium 8.9 Phosphorus 3.1 Magnesium 1.9 Triglycerides 1303 H Lipase 607 H Urine Chloride 05/22/25 05/22/25 05/22/25 04:35 05:31 06:26 WBC RBC Hgb Hct MCV MCH MCHC RDW Plt Count MPV Immature Gran % (Auto) Neut % (Auto) Lymph % (Auto) [place] % (Auto) Eos % (Auto) Baso % (Auto) Lymph # (Auto) [place] # (Auto) Eos # (Auto) Baso # (Auto) Abs Immat Gran (auto) Absolute Neuts (auto) Absolute Nucleated RBC Total Counted Neutrophils % (Manual) Band Neutrophils % Lymphocytes % (Manual) Monocytes % (Manual) Eosinophils % (Manual) Nucleated RBC % Abs Neuts (Manual) Abs Lymphs (Manual) Abs Monocytes (Manual) Absolute Eos (Manual) Platelet Estimate Anisocytosis Tear Drop Cells Schistocytes Sodium Potassium Chloride Carbon Dioxide Anion Gap BUN Creatinine Estim Creat Clear Calc Estimated GFR Glucose POC Capillary Glucose 181 H 211 H 255 H Calcium Phosphorus Magnesium Triglycerides Lipase Urine Chloride 05/22/25 05/22/25 05/22/25 07:32 08:28 09:05 WBC RBC Hgb Hct MCV MCH MCHC RDW Plt Count MPV Immature Gran % (Auto) Neut % (Auto) Lymph % (Auto) [place] % (Auto) Eos % (Auto) Baso % (Auto) Lymph # (Auto) [place] # (Auto) Eos # (Auto) Baso # (Auto) Abs Immat Gran (auto) Absolute Neuts (auto) Absolute Nucleated RBC Total Counted Neutrophils % (Manual) Band Neutrophils % Lymphocytes % (Manual) Monocytes % (Manual) Eosinophils % (Manual) Nucleated RBC % Abs Neuts (Manual) Abs Lymphs (Manual) Abs Monocytes (Manual) Absolute Eos (Manual) Platelet Estimate Anisocytosis Tear Drop Cells Schistocytes Sodium Potassium Chloride Carbon Dioxide Anion Gap BUN Creatinine Estim Creat Clear Calc Estimated GFR Glucose POC Capillary Glucose 267 H 392 H 434 H Calcium Phosphorus Magnesium Triglycerides Lipase Urine Chloride Quality VTE Prophylaxis VTE prophylaxis: pharmacologic ordered
[2025-05-22 12:39] LABS: Anion Gap 10 mmol/L (4-12); Blood Urea Nitrogen 9 mg/dL (9-20); Calcium 9.3 mg/dL (8.4-10.2); Carbon Dioxide 26 mmol/L (22-30); Chloride 100 mmol/L (98-107); Estimated CRCL calculation 150 ml/min; Estimated Glomerular Filt Rate > 60; Glucose 272 mg/dL (65-110); Potassium 4.0 mmol/L (3.4-5.0); Sodium 136 mmol/L (137-145)
--- NOTE | 2025-05-22 13:00 | PM.IMPN ---
Progress Note: A&P Assessment and Plan (1) DKA (diabetic ketoacidosis): Qualifiers: Diabetes mellitus type: type 2 Diabetes mellitus complication detail: without coma Qualified Code(s): E11.10 - Type 2 diabetes mellitus with ketoacidosis without coma Code(s): E11.10 - Type 2 diabetes mellitus with ketoacidosis without coma Status: Acute Assessment and Plan: 05/19: Patient presented with epigastric tenderness, nausea, vomiting, decreased oral intake for 3-4 days. Recently diagnosed with diabetes about 3 months back, has been controlling his diabetes with diet and holistic approach/homeopathy. Patient was found to be tachycardic, tachypneic, with a blood sugars of 798, potassium of 7.0, creatinine of 2.74 Patient was treated with IV insulin IV fluids. His anion gap has closed but IV insulin be continued for hypertriglyceridemia. Advance diet to full liquid Patient will be transition to subcutaneous insulin once triglyceride levels are improved continue care per human resources records clerk (2) DM2 (diabetes mellitus, type 2): Qualifiers: Diabetes mellitus equipment operator intermodal yard insulin use: without equipment operator intermodal yard use Diabetes mellitus complication status: with ketoacidosis Diabetes mellitus complication detail: without coma Qualified Code(s): E11.10 - Type 2 diabetes mellitus with ketoacidosis without coma Code(s): E11.9 - Type 2 diabetes mellitus without complications Status: Acute Assessment and Plan: Patient stated that he was diagnosed with diabetes 3-4 months ago but not on any treatment right now. Patient used to be on metformin -hemoglobin A1c this admission is 11.7 Consulted top lift compressor and dietitian evaluate the patient (3) Hypertriglyceridemia: Code(s): E78.1 - Pure hyperglyceridemia Status: Acute Assessment and Plan: Patient has history of hypertriglyceridemia and was on fenofibric acid and statin the past but has not taken anything in last 3-4 months. Hypertriglyceridemia with triglycerides have a lot of >2625 Likely the cause of his pancreatitis He is clinically improved and feels better. Triglyceride level is down to 1300 I will continue with IV insulin infusion and IV fluids with dextrose. Repeat triglyceride level in the evening Continue monitor triglyceride levels On clear liquid diet and will advance to full liquid Contain fenofibrate and statin continue care per human resources records clerk (4) REGULO (acute kidney injury): Code(s): N17.9 - Acute kidney failure, unspecified Status: Acute Assessment and Plan: Acute kidney injury, likely related to hypovolemia,, inflammatory changes related to pancreatitis -patient received 4 L IV fluid bolus and is on maintenance IV fluids -creatinine has improved and is down in normal range -no hydronephrosis noticed on CT abdomen and pelvis -continue to monitor renal function, electrolytes and urine output continue care per human resources records clerk (5) Hyperkalemia: Code(s): E87.5 - Hyperkalemia Status: Acute Assessment and Plan: Hyperkalemia likely is multifactorial, acute kidney injury, metabolic ketoacidosis due DKA -initial pH was 6.96, patient received 3 amps of bicarb, Lokelma, insulin and D50 -patient now hypokalemic and potassium is being replaced continue care per human resources records clerk (6) HLD (hyperlipidemia): Qualifiers: Hyperlipidemia type: unspecified Qualified Code(s): E78.5 - Hyperlipidemia, unspecified Code(s): E78.5 - Hyperlipidemia, unspecified Status: Acute Assessment and Plan: Hypertriglyceridemia, elevated cholesterol -Will start statins once more stable (7) Pancreatitis: Qualifiers: Acute pancreatitis complication: no infection or necrosis Chronicity: acute Pancreatitis type: unspecified pancreatitis type Qualified Code(s): K85.90 - Acute pancreatitis without necrosis or infection, unspecified Code(s): K85.90 - Acute pancreatitis without necrosis or infection, unspecified Status: Acute Assessment and Plan: Acute pancreatitis related to hypertriglyceridemia Continue IV fluid and insulin infusion Advance diet Pain control continue care per human resources records clerk (8) Electrolyte abnormality: Code(s): E87.8 - Other disorders of electrolyte and fluid balance, not elsewhere classified Status: Acute Assessment and Plan: Calcium replacement ordered Potassium and phosphorous replacement ordered Magnesium replacement ordered Monitor electrolytes (9) Hypothyroidism: Code(s): E03.9 - Hypothyroidism, unspecified Status: Acute Assessment and Plan: Resume levothyroxine Thyroid function test reviewed (10) Bipolar mood disorder: Code(s): F31.9 - Bipolar disorder, unspecified Status: Acute Assessment and Plan: Patient has a distant history of bipolar mood disorder requiring hospitalization age of 17. He states he is not on any treatment for last 20 years. Patient's mother is adamant the patient is depressed with episodes of gucci. Patient at this time on exam and during my interview does not exhibit any signs of gucci and does not appear overtly depressed. He also denies any suicidal homicidal ideation. Currently I will focus on treating his metabolic and medical problems. Once patient is stabilized and medical issues are resolved will consider psychiatric consult. Plan DVT prophylaxis: Heparin Stress ulcer prophylaxis:Protonix Nutrition: Full liquid diet Code Status: Full Code Incentive spirometry Up in chair Subjective Date/time seen: 05/22/25 13:00 Interval history: Comfortable at bedside still on insulin infusion Review of Systems Review of Systems: All systems reviewed & are unremarkable except as noted in HPI and below Exam Narrative: General: Ill-appearing gentleman, HEENT:? Pupils equal and reactive, sclera is clear, moist oral mucous Neck:? Supple Respiratory:?Clear to auscultation bilaterally, no wheezing or rales Cardiac:? Sinus tachycardia Abdomen:? Mild Epigastric tenderness, no rebound, present but decreased bowel sounds, soft, protuberant obese Extremities:? No edema, palpable pedal pulse Neuro:? Patient is awake, alert, answers to questions appropriately and follows commands Skin:? No skin lesions noted Psych:? Normal orientation, normal speech and affect Const: Other: Patient appears uncomfortable, significantly ill-appearing, bilious emesis on hospital gown, , male. HENMT: Face/Nose/Sinus: Normal nares present Mouth: Yes dry mucous membranes Eyes: General: appearance normal, both eyes and all related structures Sclera: sclerae normal Pupils: Equal, round and reactive pupils present EOM: EOMs intact bilaterally Resp: Effort & Inspection: normal respiratory effort Auscultation: clear to auscultation bilaterally Cardio: Rate: tachycardic (Mild 110-115) Rhythm: regular rhythm Other: S1-S2 present without murmur, rub, ectopy GI: Other: Abdomen rounded, but nondistended. Soft with tenderness in the epigastric region and left upper quadrant region. hypoactive bowel sounds in all quadrants. Skin: General skin exam: normal color and no rashes or lesions noted Wounds: no wounds Neuro: Cranial nerves: Yes Equal, round and reactive pupils present Speech: normal speech Motor exam (neuro): 5/5 motor strength present throughout Sensory Exam: normal sensation Other: A&O x4 Extrem: General: normal to inspection Psych: Mental Status: mental status grossly normal Affect: normal affect Other: Fair insight and judgment Objective Data Vital Signs Vital Signs: Vital Signs - 24 hr 05/21/25 14:00 05/21/25 14:00 05/21/25 15:00 Temperature Pulse Rate 100 90 96 Respiratory Rate 21 H 18 Blood Pressure 120/79 116/74 Pulse Oximetry 98 100 Oxygen Delivery Fraction of Inspired Oxygen 05/21/25 16:00 05/21/25 16:00 05/21/25 16:00 Temperature Pulse Rate 98 103 H Respiratory Rate 18 Blood Pressure 120/84 Pulse Oximetry 100 99 Oxygen Delivery Room Air Fraction of Inspired Oxygen 05/21/25 16:00 05/21/25 17:00 05/21/25 18:00 Temperature 98.3 F Pulse Rate 93 96 Respiratory Rate 19 19 Blood Pressure 107/77 118/89 Pulse Oximetry 98 98 Oxygen Delivery Fraction of Inspired Oxygen 05/21/25 18:00 05/21/25 19:00 05/21/25 20:00 Temperature 98.9 F Pulse Rate 99 101 H 94 Respiratory Rate 21 H 19 Blood Pressure 129/89 130/73 Pulse Oximetry 98 99 Oxygen Delivery Fraction of Inspired Oxygen 05/21/25 20:00 05/21/25 20:00 05/21/25 20:02 Temperature Pulse Rate 99 99 Respiratory Rate 22 H Blood Pressure Pulse Oximetry 100 99 Oxygen Delivery Room Air Room Air Fraction of Inspired Oxygen 21 05/21/25 21:00 05/21/25 22:00 05/21/25 22:00 Temperature Pulse Rate 91 94 94 Respiratory Rate 20 17 Blood Pressure 125/74 130/80 Pulse Oximetry 99 99 Oxygen Delivery Fraction of Inspired Oxygen 05/21/25 23:00 05/22/25 00:00 05/22/25 00:00 Temperature 98 F Pulse Rate 94 99 Respiratory Rate 20 23 H Blood Pressure 115/60 111/77 Pulse Oximetry 96 97 97 Oxygen Delivery Room Air Fraction of Inspired Oxygen 05/22/25 00:00 05/22/25 01:00 05/22/25 02:00 Temperature Pulse Rate 99 101 H 92 Respiratory Rate 26 H 20 Blood Pressure 124/77 118/66 Pulse Oximetry 98 96 Oxygen Delivery Fraction of Inspired Oxygen 05/22/25 02:00 05/22/25 03:00 05/22/25 04:00 Temperature Pulse Rate 92 91 Respiratory Rate 20 Blood Pressure 103/69 Pulse Oximetry 96 98 Oxygen Delivery Room Air Fraction of Inspired Oxygen 05/22/25 04:00 05/22/25 04:00 05/22/25 05:00 Temperature 98.1 F Pulse Rate 90 90 88 Respiratory Rate 19 18 Blood Pressure 121/80 109/76 Pulse Oximetry 98 97 Oxygen Delivery Fraction of Inspired Oxygen 05/22/25 06:00 05/22/25 06:00 05/22/25 07:00 Temperature 98.3 F Pulse Rate 87 87 104 H Respiratory Rate 18 29 H Blood Pressure 111/65 93/70 L Pulse Oximetry 97 100 Oxygen Delivery Fraction of Inspired Oxygen 05/22/25 08:00 05/22/25 08:00 05/22/25 08:00 Temperature Pulse Rate 98 100 Respiratory Rate 23 H 16 Blood Pressure 127/86 93/70 L Pulse Oximetry 100 100 95 Oxygen Delivery Room Air Fraction of Inspired Oxygen 05/22/25 08:00 05/22/25 09:00 05/22/25 10:00 Temperature Pulse Rate 100 97 88 Respiratory Rate 11 L Blood Pressure 134/93 H Pulse Oximetry 100 Oxygen Delivery Fraction of Inspired Oxygen 05/22/25 10:00 05/22/25 11:00 05/22/25 12:00 Temperature 98.3 F 98.5 F Pulse Rate 90 93 96 Respiratory Rate 25 H 20 18 Blood Pressure 106/66 124/80 128/83 Pulse Oximetry 99 100 99 Oxygen Delivery Fraction of Inspired Oxygen 05/22/25 12:00 Temperature Pulse Rate 102 H Respiratory Rate Blood Pressure Pulse Oximetry Oxygen Delivery Fraction of Inspired Oxygen Intake/Output Intake/Output: Intake & Output 05/19/25 05/20/25 05/21/25 05/22/25 23:59 23:59 23:59 23:59 Intake Total 4510.8 4575.4667 4295.4 1864.4 Output Total 1925 2600 4250 3650 Balance 2585.8 1975.4667 45.4 -1785.6 Meds/Results Medications: Active Medications Generic Name Dose Route Start Last Admin Trade Name Freq PRN Reason Stop Dose Admin Acetaminophen 650 mg 05/19/25 12:55 Acetaminophen 325 Mg Tablet PO Q4H PRN Mild Pain (1-3) or Fever Atorvastatin Calcium 80 mg 05/21/25 09:00 05/22/25 08:40 Atorvastatin 40 Mg Tablet PO 80 mg DAILY BEBETO Administration Dextrose 12.5 gm 05/19/25 12:14 Dextrose 50% 25 Gm/50 Ml Syringe IV PUSH PRN PRN Hypoglycemia Protocol Fenofibrate 145 mg 05/21/25 09:00 05/22/25 08:40 Fenofibrate 145 Mg Tablet PO 145 mg QAM BEBETO Administration Fentanyl Citrate 25 mcg 05/19/25 14:14 Fentanyl Citrate Inj (*Crx) 100 Mcg/2 Ml Vial IV PUSH Q3H PRN Pain Rated 6 or Greater Glucagon 1 mg 05/19/25 12:14 Glucagon For Inj 1 Mg Vial IM PRN PRN Hypoglycemia Protocol Glucose 15 gm 05/19/25 12:14 Glucose Oral Gel 15 Gm Of Glucse In 37.5 Gm Tube PO PRN PRN Hypoglycemia Protocol Heparin Sodium (Porcine) 5,000 units 05/19/25 22:00 05/22/25 06:23 Heparin Sodium 5,000 Units/Ml Vial SUB-Q 5,000 units Q8HR BEBETO Administration Insulin Human Regular 100 100 mls @ 14 mls/hr 05/19/25 12:15 05/22/25 12:14 units/ Sodium Chloride IV CONT 14 units/hr .Q7H9M BEBETO 14 mls/hr Protocol Titration 14 UNITS/HR Dextrose 1,000 mls @ 100 mls/hr 05/19/25 12:14 Dextrose 5% 1,000 Ml IVPB PRN PRN Hypoglycemia Protocol Potassium Chloride/Dextrose/Sod Cl 1,000 mls @ 150 mls/hr 05/19/25 14:35 05/22/25 08:14 Kcl 20 Meq/D5/0.45% Sod Chl IV CONT 150 mls/hr .Q6H40M BEBETO Administration Levothyroxine Sodium 75 mcg 05/22/25 06:30 05/22/25 06:23 Levothyroxine Sodium 75 Mcg Tablet PO 75 mcg DAILY@0630 BEBETO Administration Ondansetron HCl 4 mg 05/19/25 12:55 05/20/25 08:50 Ondansetron Inj 4 Mg/2 Ml Vial IV PUSH 4 mg Q4H PRN Administration Nausea Pantoprazole Sodium 40 mg 05/20/25 09:00 05/22/25 08:40 Pantoprazole Sodium Iv 40 Mg Vial IV PUSH 40 mg Q12H BEBETO Administration Polyethylene Glycol 17 gm 05/21/25 09:00 05/21/25 09:07 Polyethylene Glycol 3350 17 Gm Powd.Pack PO 17 gm QAM BEBETO Administration Radiology Results: ITS Impressions Chest X-Ray 05/19/25 12:24 IMPRESSION: 1. No acute cardiopulmonary findings given portable technique. Abdomen/Pelvis CT 05/19/25 12:43 IMPRESSION: 1. Severe pancreatitis and/or gastroduodenitis. Abdomen X-Ray 05/21/25 13:15 Impression: 1. Nonspecific bowel gas pattern Labs Labs: Laboratory Results - last 24 hr 05/21/25 05/21/25 05/21/25 12:34 13:02 14:00 WBC RBC Hgb Hct MCV MCH MCHC RDW Plt Count MPV Immature Gran % (Auto) Neut % (Auto) Lymph % (Auto) Daniels % (Auto) Eos % (Auto) Baso % (Auto) Lymph # (Auto) Daniels # (Auto) Eos # (Auto) Baso # (Auto) Abs Immat Gran (auto) Absolute Neuts (auto) Absolute Nucleated RBC Total Counted Neutrophils % (Manual) Band Neutrophils % Lymphocytes % (Manual) Monocytes % (Manual) Eosinophils % (Manual) Nucleated RBC % Abs Neuts (Manual) Abs Lymphs (Manual) Abs Monocytes (Manual) Absolute Eos (Manual) Platelet Estimate Anisocytosis Tear Drop Cells Schistocytes Sodium 131 L Potassium 3.9 Chloride 103 Carbon Dioxide 19 L Anion Gap 9 BUN 13 Creatinine 0.74 Estim Creat Clear Calc 111 Estimated GFR > 60 Glucose 320 H POC Capillary Glucose 367 H 350 H Calcium 8.6 Phosphorus Magnesium Triglycerides Lipase 05/21/25 05/21/25 05/21/25 15:00 15:54 16:33 WBC RBC Hgb Hct MCV MCH MCHC RDW Plt Count MPV Immature Gran % (Auto) Neut % (Auto) Lymph % (Auto) Daniels % (Auto) Eos % (Auto) Baso % (Auto) Lymph # (Auto) Daniels # (Auto) Eos # (Auto) Baso # (Auto) Abs Immat Gran (auto) Absolute Neuts (auto) Absolute Nucleated RBC Total Counted Neutrophils % (Manual) Band Neutrophils % Lymphocytes % (Manual) Monocytes % (Manual) Eosinophils % (Manual) Nucleated RBC % Abs Neuts (Manual) Abs Lymphs (Manual) Abs Monocytes (Manual) Absolute Eos (Manual) Platelet Estimate Anisocytosis Tear Drop Cells Schistocytes Sodium 133 L Potassium 3.4 Chloride 102 Carbon Dioxide 24 Anion Gap 7 BUN 12 Creatinine 0.73 Estim Creat Clear Calc 113 Estimated GFR > 60 Glucose 292 H POC Capillary Glucose 393 H 338 H Calcium 8.7 Phosphorus 2.4 L Magnesium Triglycerides Lipase 05/21/25 05/21/25 05/21/25 16:58 17:58 18:53 WBC RBC Hgb Hct MCV MCH MCHC RDW Plt Count MPV Immature Gran % (Auto) Neut % (Auto) Lymph % (Auto) Daniels % (Auto) Eos % (Auto) Baso % (Auto) Lymph # (Auto) Daniels # (Auto) Eos # (Auto) Baso # (Auto) Abs Immat Gran (auto) Absolute Neuts (auto) Absolute Nucleated RBC Total Counted Neutrophils % (Manual) Band Neutrophils % Lymphocytes % (Manual) Monocytes % (Manual) Eosinophils % (Manual) Nucleated RBC % Abs Neuts (Manual) Abs Lymphs (Manual) Abs Monocytes (Manual) Absolute Eos (Manual) Platelet Estimate Anisocytosis Tear Drop Cells Schistocytes Sodium Potassium Chloride Carbon Dioxide Anion Gap BUN Creatinine Estim Creat Clear Calc Estimated GFR Glucose POC Capillary Glucose 276 H 223 H 228 H Calcium Phosphorus Magnesium Triglycerides Lipase 05/21/25 05/21/25 05/21/25 19:58 20:36 21:18 WBC RBC Hgb Hct MCV MCH MCHC RDW Plt Count MPV Immature Gran % (Auto) Neut % (Auto) Lymph % (Auto) Daniels % (Auto) Eos % (Auto) Baso % (Auto) Lymph # (Auto) Daniels # (Auto) Eos # (Auto) Baso # (Auto) Abs Immat Gran (auto) Absolute Neuts (auto) Absolute Nucleated RBC Total Counted Neutrophils % (Manual) Band Neutrophils % Lymphocytes % (Manual) Monocytes % (Manual) Eosinophils % (Manual) Nucleated RBC % Abs Neuts (Manual) Abs Lymphs (Manual) Abs Monocytes (Manual) Absolute Eos (Manual) Platelet Estimate Anisocytosis Tear Drop Cells Schistocytes Sodium 133 L Potassium 3.3 L Chloride 103 Carbon Dioxide 22 Anion Gap 8 BUN 11 Creatinine 0.64 L Estim Creat Clear Calc 127 Estimated GFR > 60 Glucose 200 H POC Capillary Glucose 222 H 219 H Calcium 8.6 Phosphorus Magnesium Triglycerides Lipase 05/21/25 05/21/25 05/22/25 22:19 23:18 00:19 WBC RBC Hgb Hct MCV MCH MCHC RDW Plt Count MPV Immature Gran % (Auto) Neut % (Auto) Lymph % (Auto) Daniels % (Auto) Eos % (Auto) Baso % (Auto) Lymph # (Auto) Daniels # (Auto) Eos # (Auto) Baso # (Auto) Abs Immat Gran (auto) Absolute Neuts (auto) Absolute Nucleated RBC Total Counted Neutrophils % (Manual) Band Neutrophils % Lymphocytes % (Manual) Monocytes % (Manual) Eosinophils % (Manual) Nucleated RBC % Abs Neuts (Manual) Abs Lymphs (Manual) Abs Monocytes (Manual) Absolute Eos (Manual) Platelet Estimate Anisocytosis Tear Drop Cells Schistocytes Sodium 134 L Potassium 3.7 Chloride 103 Carbon Dioxide 23 Anion Gap 8 BUN 9 Creatinine 0.63 L Estim Creat Clear Calc 129 Estimated GFR > 60 Glucose 246 H POC Capillary Glucose 254 H 273 H Calcium 8.8 Phosphorus Magnesium Triglycerides Lipase 05/22/25 05/22/25 05/22/25 00:24 01:14 02:25 WBC RBC Hgb Hct MCV MCH MCHC RDW Plt Count MPV Immature Gran % (Auto) Neut % (Auto) Lymph % (Auto) Daniels % (Auto) Eos % (Auto) Baso % (Auto) Lymph # (Auto) Daniels # (Auto) Eos # (Auto) Baso # (Auto) Abs Immat Gran (auto) Absolute Neuts (auto) Absolute Nucleated RBC Total Counted Neutrophils % (Manual) Band Neutrophils % Lymphocytes % (Manual) Monocytes % (Manual) Eosinophils % (Manual) Nucleated RBC % Abs Neuts (Manual) Abs Lymphs (Manual) Abs Monocytes (Manual) Absolute Eos (Manual) Platelet Estimate Anisocytosis Tear Drop Cells Schistocytes Sodium Potassium Chloride Carbon Dioxide Anion Gap BUN Creatinine Estim Creat Clear Calc Estimated GFR Glucose POC Capillary Glucose 256 H 240 H 211 H Calcium Phosphorus Magnesium Triglycerides Lipase 05/22/25 05/22/25 05/22/25 03:34 03:46 04:35 WBC 5.4 RBC 3.20 L Hgb 9.5 L Hct 27.4 L MCV 85.6 MCH 29.7 MCHC 34.7 RDW 14.5 Plt Count 198 MPV 10.3 Immature Gran % (Auto) Not Reportable Neut % (Auto) Not Reportable Lymph % (Auto) Not Reportable Daniels % (Auto) Not Reportable Eos % (Auto) Not Reportable Baso % (Auto) Not Reportable Lymph # (Auto) Not Reportable Daniels # (Auto) Not Reportable Eos # (Auto) Not Reportable Baso # (Auto) Not Reportable Abs Immat Gran (auto) Not Reportable Absolute Neuts (auto) Not Reportable Absolute Nucleated RBC Not Reportable Total Counted 100 Neutrophils % (Manual) 73 Band Neutrophils % 3 Lymphocytes % (Manual) 19.0 Monocytes % (Manual) 2 L Eosinophils % (Manual) 3 Nucleated RBC % Not Reportable Abs Neuts (Manual) 4.10 Abs Lymphs (Manual) 1.02 L Abs Monocytes (Manual) 0.10 Absolute Eos (Manual) 0.16 Platelet Estimate Adequate Anisocytosis 1+ Tear Drop Cells 2+ Schistocytes None seen Sodium 137 Potassium 3.5 Chloride 105 Carbon Dioxide 24 Anion Gap 8 BUN 8 L Creatinine 0.67 L Estim Creat Clear Calc 122 Estimated GFR > 60 Glucose 170 H POC Capillary Glucose 182 H 181 H Calcium 8.9 Phosphorus 3.1 Magnesium 1.9 Triglycerides 1303 H Lipase 607 H 05/22/25 05/22/25 05/22/25 05:31 06:26 07:32 WBC RBC Hgb Hct MCV MCH MCHC RDW Plt Count MPV Immature Gran % (Auto) Neut % (Auto) Lymph % (Auto) Daniels % (Auto) Eos % (Auto) Baso % (Auto) Lymph # (Auto) Daniels # (Auto) Eos # (Auto) Baso # (Auto) Abs Immat Gran (auto) Absolute Neuts (auto) Absolute Nucleated RBC Total Counted Neutrophils % (Manual) Band Neutrophils % Lymphocytes % (Manual) Monocytes % (Manual) Eosinophils % (Manual) Nucleated RBC % Abs Neuts (Manual) Abs Lymphs (Manual) Abs Monocytes (Manual) Absolute Eos (Manual) Platelet Estimate Anisocytosis Tear Drop Cells Schistocytes Sodium Potassium Chloride Carbon Dioxide Anion Gap BUN Creatinine Estim Creat Clear Calc Estimated GFR Glucose POC Capillary Glucose 211 H 255 H 267 H Calcium Phosphorus Magnesium Triglycerides Lipase 05/22/25 05/22/25 05/22/25 08:28 09:05 10:02 WBC RBC Hgb Hct MCV MCH MCHC RDW Plt Count MPV Immature Gran % (Auto) Neut % (Auto) Lymph % (Auto) Daniels % (Auto) Eos % (Auto) Baso % (Auto) Lymph # (Auto) Daniels # (Auto) Eos # (Auto) Baso # (Auto) Abs Immat Gran (auto) Absolute Neuts (auto) Absolute Nucleated RBC Total Counted Neutrophils % (Manual) Band Neutrophils % Lymphocytes % (Manual) Monocytes % (Manual) Eosinophils % (Manual) Nucleated RBC % Abs Neuts (Manual) Abs Lymphs (Manual) Abs Monocytes (Manual) Absolute Eos (Manual) Platelet Estimate Anisocytosis Tear Drop Cells Schistocytes Sodium Potassium Chloride Carbon Dioxide Anion Gap BUN Creatinine Estim Creat Clear Calc Estimated GFR Glucose POC Capillary Glucose 392 H 434 H 376 H Calcium Phosphorus Magnesium Triglycerides Lipase 05/22/25 05/22/25 05/22/25 11:15 12:04 12:05 WBC RBC Hgb Hct MCV MCH MCHC RDW Plt Count MPV Immature Gran % (Auto) Neut % (Auto) Lymph % (Auto) Daniels % (Auto) Eos % (Auto) Baso % (Auto) Lymph # (Auto) Daniels # (Auto) Eos # (Auto) Baso # (Auto) Abs Immat Gran (auto) Absolute Neuts (auto) Absolute Nucleated RBC Total Counted Neutrophils % (Manual) Band Neutrophils % Lymphocytes % (Manual) Monocytes % (Manual) Eosinophils % (Manual) Nucleated RBC % Abs Neuts (Manual) Abs Lymphs (Manual) Abs Monocytes (Manual) Absolute Eos (Manual) Platelet Estimate Anisocytosis Tear Drop Cells Schistocytes Sodium 136 L Potassium 4.0 Chloride 100 Carbon Dioxide 26 Anion Gap 10 BUN 9 Creatinine 0.65 L Estim Creat Clear Calc 150 Estimated GFR > 60 Glucose 272 H POC Capillary Glucose 275 H 322 H Calcium 9.3 Phosphorus Magnesium Triglycerides Lipase Quality VTE Prophylaxis VTE prophylaxis: pharmacologic ordered
[2025-05-22 16:26] LABS: Anion Gap 10 mmol/L (4-12); Blood Urea Nitrogen 8 mg/dL (9-20); Calcium 9.4 mg/dL (8.4-10.2); Carbon Dioxide 22 mmol/L (22-30); Chloride 102 mmol/L (98-107); Estimated CRCL calculation 161 ml/min; Estimated Glomerular Filt Rate > 60; Glucose 155 mg/dL (65-110); Potassium 4.0 mmol/L (3.4-5.0); Sodium 134 mmol/L (137-145)
[2025-05-22 16:30] LABS: Triglycerides 1091 mg/dL (<150)
[2025-05-22 20:30] LABS: Anion Gap 7 mmol/L (4-12); Blood Urea Nitrogen 8 mg/dL (9-20); Calcium 8.8 mg/dL (8.4-10.2); Carbon Dioxide 25 mmol/L (22-30); Chloride 98 mmol/L (98-107); Estimated CRCL calculation 166 ml/min; Estimated Glomerular Filt Rate > 60; Glucose 364 mg/dL (65-110); Potassium 3.9 mmol/L (3.4-5.0); Sodium 130 mmol/L (137-145)
[2025-05-23] VITALS (12 sets, daily range): BP systolic 94–130; BP diastolic 63–90; PULSE 81–99; RESP 15–21; TEMP 36.1–36.9; O2SAT 97–100
[2025-05-23] MEDS: KCL 20 MEQ/D5/0.45% SOD CHL 1,000 ML 150 ML IV CONT ×2 (00:27→06:36)
[2025-05-23 00:38] LABS: Anion Gap 8 mmol/L (4-12); Blood Urea Nitrogen 7 mg/dL (9-20); Calcium 9.7 mg/dL (8.4-10.2); Carbon Dioxide 28 mmol/L (22-30); Chloride 99 mmol/L (98-107); Estimated CRCL calculation 154 ml/min; Estimated Glomerular Filt Rate > 60; Glucose 231 mg/dL (65-110); Potassium 3.6 mmol/L (3.4-5.0); Sodium 135 mmol/L (137-145)
[2025-05-23 03:47] LABS: Hematocrit 27.1 % (42.0-52.0); Hemoglobin 9.1 g/dL (14.0-18.0); Mean Corpuscular HGB Conc 33.6 g/dl (32-36); Mean Corpuscular Hemoglobin 29.1 pg (26-34); Mean Corpuscular Volume 86.6 fl (80-100); Platelet Count Result 192 k/mm3 (150-375); Red Blood Count 3.13 M/mm3 (4.6-6.20); White Blood Count 6.2 K/mm3 (4.5-10.0)
[2025-05-23 04:15] LABS: Alanine Aminotransferase 80 U/L (6-50); Albumin Level 3.2 g/dL (3.5-5.1); Alkaline Phosphatase 184 U/L (38-126); Anion Gap 7 mmol/L (4-12); Aspartate Amino Transferase 22 U/L (17-59); Bilirubin,Total 0.7 mg/dL (0.2-1.3); Blood Urea Nitrogen 7 mg/dL (9-20); Calcium 9.4 mg/dL (8.4-10.2); Carbon Dioxide 28 mmol/L (22-30); Chloride 101 mmol/L (98-107); Estimated CRCL calculation 152 ml/min; Estimated Glomerular Filt Rate > 60; Glucose 154 mg/dL (65-110); Lipase 605 U/L (23-300); Magnesium 1.6 mg/dL (1.6-2.3); Potassium 3.7 mmol/L (3.4-5.0); Sodium 136 mmol/L (137-145); Total Protein 6.6 g/dL (6.3-8.2)
[2025-05-23 04:35] LABS: Triglycerides 776 mg/dL (<150)
--- NOTE | 2025-05-23 06:11 | PC.NURSE ---
Patient refusing every 1 hour vital signs and refusing to keep on blood pressure cuff, stating that it is hurting his arm too much. This RN educated patient on policy of q1h vital signs but patient denies need for vitals every hour. RN obtaining vitals q2h per patient's request.
[2025-05-23] MEDS: LEVOTHYROXINE SODIUM 75 MCG TABLET PO (06:33)
[2025-05-23] MEDS: POTASSIUM CHLORIDE 20 MEQ PACKET (FOR LIQUID) 40 MEQ PO (08:12)
[2025-05-23] MEDS: FENOFIBRATE 145 MG TABLET PO (08:13)
[2025-05-23] MEDS: ATORVASTATIN 40 MG TABLET 80 MG PO (08:13)
[2025-05-23] MEDS: PANTOPRAZOLE SODIUM IV 40 MG VIAL IV PUSH ×2 (08:13→20:36)
[2025-05-23] MEDS: INSULIN GLARGINE (*BKC) 100 UNITS/ML 20 UNITS SUB-Q (08:15)
[2025-05-23] MEDS: INSULIN ASPART (*BKC) 100 UNITS/ML SUB-Q ×6 (08:18→20:34)
[2025-05-23] MEDS: MAGNESIUM SULF 2 GM/WATER 50ML 2 GM/50 ML BAG IVPB (08:30)
--- NOTE | 2025-05-23 08:57 | P.PNINT_ITS ---
Progress Note: A&P Assessment and Plan (1) DKA (diabetic ketoacidosis): Qualifiers: Diabetes mellitus type: type 2 Diabetes mellitus complication detail: without coma Qualified Code(s): E11.10 - Type 2 diabetes mellitus with ketoacidosis without coma Code(s): E11.10 - Type 2 diabetes mellitus with ketoacidosis without coma Status: Acute Assessment and Plan: Has resolved. I will transition patient to subcutaneous insulin today. Patient has been seen by childbirth educator and dietitian. Advance to consistent carbohydrate diet (2) DM2 (diabetes mellitus, type 2): Qualifiers: Diabetes mellitus nursing home insulin use: without joint terminal attack controller use Diabetes mellitus complication status: with ketoacidosis Diabetes mellitus complication detail: without coma Qualified Code(s): E11.10 - Type 2 diabetes mellitus with ketoacidosis without coma Code(s): E11.9 - Type 2 diabetes mellitus without complications Status: Acute Assessment and Plan: Patient stated that he was diagnosed with diabetes 3-4 months ago but not on any treatment right now. Patient used to be on metformin -hemoglobin A1c this admission is 11.7 Consulted childbirth educator and dietitian evaluate the patient (3) Hypertriglyceridemia: Code(s): E78.1 - Pure hyperglyceridemia Status: Acute Assessment and Plan: Patient has history of hypertriglyceridemia and was on fenofibric acid and statin in the past but has not taken anything in last 3-4 months. Hypertriglyceridemia with triglycerides level >2625 on presentation which is Likely the cause of his pancreatitis He was started on insulin infusion along with IV fluids with dextrose and he is He is clinically improved and feels better. Triglyceride level is down to be less than 1000 I will transition him to subcutaneous insulin and discontinue IV fluids with dextrose. Continue monitor triglyceride levels Transition to low-fat diet Contain fenofibrate and statin (4) REGULO (acute kidney injury): Code(s): N17.9 - Acute kidney failure, unspecified Status: Acute Assessment and Plan: Acute kidney injury, likely related to hypovolemia,, inflammatory changes related to pancreatitis -patient received 4 L IV fluid bolus and is on maintenance IV fluids -creatinine has improved and is down in normal range -no hydronephrosis noticed on CT abdomen and pelvis -continue to monitor renal function, electrolytes and urine output (5) Hyperkalemia: Code(s): E87.5 - Hyperkalemia Status: Acute Assessment and Plan: Hyperkalemia likely is multifactorial, acute kidney injury, metabolic ke toacidosis due DKA -initial pH was 6.96, patient received 3 amps of bicarb, Lokelma, insulin and D50 -patient now hypokalemic and potassium is being replaced (6) HLD (hyperlipidemia): Qualifiers: Hyperlipidemia type: unspecified Qualified Code(s): E78.5 - Hyperlipidemia, unspecified Code(s): E78.5 - Hyperlipidemia, unspecified Status: Acute Assessment and Plan: Continue statin (7) Pancreatitis: Qualifiers: Acute pancreatitis complication: no infection or necrosis Chronicity: acute Pancreatitis type: unspecified pancreatitis type Qualified Code(s): K85 .90 - Acute pancreatitis without necrosis or infection, unspecified Code(s): K85.90 - Acute pancreatitis without necrosis or infection, unspecified Status: Acute Assessment and Plan: Acute pancreatitis related to hypertriglyceridemia Improved Advance diet to low-fat Pain control (8) Electrolyte abnormality: Code(s): E87.8 - Other disorders of electrolyte and fluid balance, not elsewhere classified Status: Acute Assessment and Plan: Potassium replacement ordered Monitor electrolytes (9) Hypothyroidism: Code(s): E03.9 - Hypothyroidism, unspecified Status: Acute Assessment and Plan: Resume levothyroxine Thyroid function test reviewed (10) Bipolar mood disorder: Code(s): F31.9 - Bipolar disorder, unspecified Status: Acute Assessment and Plan: Patient has a distant history of bipolar mood disorder requiring hospitalization age of 17. He states he is not on any treatment for last 20 years. Patient's mother is adamant the patient is depressed with episodes of gucci. Patient at this time on exam and during my interview does not exhibit any signs of gucci and does not appear overtly depressed. He also denies any suicidal homicidal ideation. Currently I will focus on treating his metabolic and medical problems. Once patient is stabilized and medical issues are resolved will consider psychiatric consult. (11) Scrotal irritation: Code(s): N50.89 - Other specified disorders of the male genital organs Status: Acute Assessment and Plan: He complains of scrotal discomfort. He states this is not itching or pain. He feels that they are bigger than they should be On exam I do not see any major abnormality but patient seems worried I will order ultrasound Plan DVT prophylaxis: Heparin Stress ulcer prophylaxis:Protonix Nutrition: Advance to low-fat consistent carbohydrate diet Code Status: Full Code Incentive spirometry Up in chair Transfer out ICU today Subjective Date/time seen: 05/23/25 Overnight events reviewed. Afebrile Continues to be on insulin at infusion and IV fluids Feels better denies any abdominal pain. No nausea vomiting. Tolerating liquid diet. Had bowel movement. He states that his scrotum feels bigger than usual and he feels stretchy discomfort bilaterally. He denies any itching. He states this has been going on for months. He is concerned there is something wrong with them. All other systems were reviewed and were negative. Review of Systems Review of Systems: All systems reviewed & are unremarkable except as noted in HPI and below Exam Narrative: General: Ill-appearing gentleman, HEENT:? Pupils equal and reactive, sclera is clear, moist oral mucous Neck:? Supple Respiratory:?Clear to auscultation bilaterally, no wheezing or rales Cardiac:? Sinus tachycardia Abdomen:? Mild Epigastric tenderness, no rebound, present but decreased bowel sounds, soft, protuberant obese Extremities:? No edema, palpable pedal pulse Neuro:? Patient is awake, alert, answers to questions appropriately and follows commands Skin:? No skin lesions noted Psych:? Normal orientation, normal speech and affect : Scrotal exam extubate no unilateral swelling mass or hydrocele. No redness or tenderness Objective Data Vital Signs Vital Signs: Vital Signs - 24 hr 05/22/25 09:00 05/22/25 10:00 05/22/25 10:00 Temperature Pulse Rate 97 88 90 Respiratory Rate 11 L 25 H Blood Pressure 134/93 H 106/66 Pulse Oximetry 100 99 Oxygen Delivery 05/22/25 11:00 05/22/25 12:00 05/22/25 12:00 Temperature 36.8 C 36.9 C Pulse Rate 93 96 102 H Respiratory Rate 20 18 Blood Pressure 124/80 128/83 Pulse Oximetry 100 99 Oxygen Delivery 05/22/25 13:00 05/22/25 13:45 05/22/25 14:00 Temperature Pulse Rate 90 92 93 Respiratory Rate 15 23 H Blood Pressure 119/84 124/86 Pulse Oximetry 100 100 Oxygen Delivery 05/22/25 14:00 05/22/25 15:00 05/22/25 16:00 Temperature 36.8 C 36.9 C Pulse Rate 93 95 94 Respiratory Rate 17 24 H 17 Blood Pressure 137/90 113/76 122/76 Pulse Oximetry 100 100 99 Oxygen Delivery 05/22/25 16:00 05/22/25 17:00 05/22/25 17:55 Temperature Pulse Rate 92 91 91 Respiratory Rate 21 H Blood Pressure 117/91 H Pulse Oximetry 98 Oxygen Delivery 05/22/25 18:00 05/22/25 19:00 05/22/25 19:50 Temperature Pulse Rate 96 98 108 H Respiratory Rate 19 17 21 H Blood Pressure 113/75 146/110 H Pulse Oximetry 100 98 98 Oxygen Delivery Room Air 05/22/25 20:00 05/22/25 20:00 05/22/25 21:00 Temperature 36.8 C Pulse Rate 96 102 H 91 Respiratory Rate 14 20 Blood Pressure 122/79 119/82 Pulse Oximetry 97 96 Oxygen Delivery 05/22/25 22:00 05/22/25 22:00 05/22/25 23:00 Temperature 36.9 C Pulse Rate 91 94 96 Respiratory Rate 21 H 20 Blood Pressure 115/81 121/74 Pulse Oximetry 98 98 Oxygen Delivery 05/22/25 23:45 05/23/25 00:00 05/23/25 00:00 Temperature 36.9 C Pulse Rate 96 90 90 Respiratory Rate 20 21 H Blood Pressure 121/75 Pulse Oximetry 98 98 Oxygen Delivery Room Air 05/23/25 01:00 05/23/25 02:00 05/23/25 02:00 Temperature Pulse Rate 86 86 86 Respiratory Rate 18 18 Blood Pressure 94/63 L 130/90 Pulse Oximetry 97 98 Oxygen Delivery 05/23/25 03:47 05/23/25 04:00 05/23/25 04:00 Temperature 36.9 C Pulse Rate 99 81 82 Respiratory Rate 20 19 Blood Pressure 105/72 Pulse Oximetry 97 98 Oxygen Delivery Room Air 05/23/25 05:42 05/23/25 06:00 05/23/25 08:00 Temperature Pulse Rate 95 89 90 Respiratory Rate 21 H Blood Pressure 118/73 Pulse Oximetry Oxygen Delivery 05/23/25 08:00 Temperature 36.7 C Pulse Rate 94 Respiratory Rate 15 Blood Pressure 124/86 Pulse Oximetry 100 Oxygen Delivery Intake/Output Intake/Output: Intake & Output 05/20/25 05/21/25 05/22/25 05/23/25 23:59 23:59 23:59 23:59 Intake Total 4575.4667 4295.4 3590.5 2631.2 Output Total 2600 4250 7200 2850 Balance 1975.4667 45.4 -3609.5 -218.8 Meds/Results Medications: Active Medications Generic Name Dose Route Start Last Admin Trade Name Freq PRN Reason Stop Dose Admin Acetaminophen 650 mg 05/19/25 12:55 Acetaminophen 325 Mg Tablet PO Q4H PRN Mild Pain (1-3) or Fever Atorvastatin Calcium 80 mg 05/21/25 09:00 05/23/25 08:13 Atorvastatin 40 Mg Tablet PO 80 mg DAILY BEBETO Administration Dextrose 12.5 gm 05/19/25 12:14 Dextrose 50% 25 Gm/50 Ml Syringe IV PUSH PRN PRN Hypoglycemia Protocol Fenofibrate 145 mg 05/21/25 09:00 05/23/25 08:13 Fenofibrate 145 Mg Tablet PO 145 mg QAM BEBETO Administration Glucagon 1 mg 05/19/25 12:14 Glucagon For Inj 1 Mg Vial IM PRN PRN Hypoglycemia Protocol Glucose 15 gm 05/19/25 12:14 Glucose Oral Gel 15 Gm Of Glucse In 37.5 Gm Tube PO PRN PRN Hypoglycemia Protocol Heparin Sodium (Porcine) 5,000 units 05/19/25 22:00 05/23/25 05:15 Heparin Sodium 5,000 Units/Ml Vial SUB-Q Not Given Q8HR BEBETO Dextrose 1,000 mls @ 100 mls/hr 05/19/25 12:14 Dextrose 5% 1,000 Ml IVPB PRN PRN Hypoglycemia Protocol Magnesium Sulfate 2 gm in 50 mls @ 25 mls/hr 05/23/25 07:38 05/23/25 08:30 Magnesium Sulf 2 Gm/Water 50ml IVPB 05/23/25 09:37 25 mls/hr ONCE ONE Administration Insulin Aspart 5 units 05/23/25 08:00 05/23/25 08:18 Insulin Aspart (*Bkc) 100 Units/Ml SUB-Q 5 units TIDWM BEBETO Administration Insulin Aspart 3 - 6 units 05/23/25 08:00 05/23/25 08:19 Insulin Aspart (*Bkc) 100 Units/Ml SUB-Q Not Given TIDWM [facility] Protocol Insulin Aspart 1 - 3 units 05/23/25 21:00 Insulin Aspart (*Bkc) 100 Units/Ml SUB-Q HS [facility] Protocol Insulin Glargine 20 units 05/23/25 07:40 05/23/25 08:20 Insulin Glargine (*Bkc) 100 Units/Ml 0.2 units/kg (20 units) Not Given SUB-Q QAM BEBETO Levothyroxine Sodium 75 mcg 05/22/25 06:30 05/23/25 06:33 Levothyroxine Sodium 75 Mcg Tablet PO 75 mcg DAILY@0630 [facility] Administration Ondansetron HCl 4 mg 05/19/25 12:55 05/20/25 08:50 Ondansetron Inj 4 Mg/2 Ml Vial IV PUSH 4 mg Q4H PRN Administration Nausea Pantoprazole Sodium 40 mg 05/20/25 09:00 05/23/25 08:13 Pantoprazole Sodium Iv 40 Mg Vial IV PUSH 40 mg Q12H BEBETO Administration Polyethylene Glycol 17 gm 05/21/25 09:00 05/23/25 08:14 Polyethylene Glycol 3350 17 Gm Powd.Pack PO Not Given QAM [facility] Radiology Results: ITS Impressions Chest X-Ray 05/19/25 12:24 IMPRESSION: 1. No acute cardiopulmonary findings given portable technique. Abdomen/Pelvis CT 05/19/25 12:43 IMPRESSION: 1. Severe pancreatitis and/or gastroduodenitis. Abdomen X-Ray 05/21/25 13:15 Impression: 1. Nonspecific bowel gas pattern Labs Labs: Laboratory Results - last 24 hr 05/22/25 05/22/25 05/22/25 09:05 10:02 11:15 WBC RBC Hgb Hct MCV MCH MCHC RDW Plt Count MPV Sodium Potassium Chloride Carbon Dioxide Anion Gap BUN Creatinine Estim Creat Clear Calc Estimated GFR Glucose POC Capillary Glucose 434 H 376 H 275 H Calcium Phosphorus Magnesium Total Bilirubin AST ALT Alkaline Phosphatase Total Protein Albumin Triglycerides Lipase 05/22/25 05/22/25 05/22/25 12:04 12:05 13:05 WBC RBC Hgb Hct MCV MCH MCHC RDW Plt Count MPV Sodium 136 L Potassium 4.0 Chloride 100 Carbon Dioxide 26 Anion Gap 10 BUN 9 Creatinine 0.65 L Estim Creat Clear Calc 150 Estimated GFR > 60 Glucose 272 H POC Capillary Glucose 322 H 278 H Calcium 9.3 Phosphorus Magnesium Total Bilirubin AST ALT Alkaline Phosphatase Total Protein Albumin Triglycerides Lipase 05/22/25 05/22/2525 13:54 15:00 15:53 WBC RBC Hgb Hct MCV MCH MCHC RDW Plt Count MPV Sodium 134 L Potassium 4.0 Chloride 102 Carbon Dioxide 22 Anion Gap 10 BUN 8 L Creatinine 0.60 L Estim Creat Clear Calc 161 Estimated GFR > 60 Glucose 155 H POC Capillary Glucose 231 H 173 H Calcium 9.4 Phosphorus Magnesium Total Bilirubin AST ALT Alkaline Phosphatase Total Protein Albumin Triglycerides 1091 H Lipase 05/22/25 05/22/25 05/22/25 16:06 17:08 17:58 WBC RBC Hgb Hct MCV MCH MCHC RDW Plt Count MPV Sodium Potassium Chloride Carbon Dioxide Anion Gap BUN Creatinine Estim Creat Clear Calc Estimated GFR Glucose POC Capillary Glucose 174 H 190 H 255 H Calcium Phosphorus Magnesium Total Bilirubin AST ALT Alkaline Phosphatase Total Protein Albumin Triglycerides Lipase 05/22/25 05/22/25 05/22/25 19:19 19:47 20:21 WBC RBC Hgb Hct MCV MCH MCHC RDW Plt Count MPV Sodium 130 L Potassium 3.9 Chloride 98 Carbon Dioxide 25 Anion Gap 7 BUN 8 L Creatinine 0.58 L Estim Creat Clear Calc 166 Estimated GFR > 60 Glucose 364 H POC Capillary Glucose 371 H 382 H Calcium 8.8 Phosphorus Magnesium Total Bilirubin AST ALT Alkaline Phosphatase Total Protein Albumin Triglycerides Lipase 05/22/25 05/22/25 05/22/25 21:25 22:30 23:35 WBC RBC Hgb Hct MCV MCH MCHC RDW Plt Count MPV Sodium Potassium Chloride Carbon Dioxide Anion Gap BUN Creatinine Estim Creat Clear Calc Estimated GFR Glucose POC Capillary Glucose 331 H 317 H 297 H Calcium Phosphorus Magnesium Total Bilirubin AST ALT Alkaline Phosphatase Total Protein Albumin Triglycerides Lipase 05/23/25 05/23/25 05/23/25 00:14 00:24 01:34 WBC RBC Hgb Hct MCV MCH MCHC RDW Plt Count MPV Sodium 135 L Potassium 3.6 Chloride 99 Carbon Dioxide 28 Anion Gap 8 BUN 7 L Creatinine 0.63 L Estim Creat Clear Calc 154 Estimated GFR > 60 Glucose 231 H POC Capillary Glucose 231 H 202 H Calcium 9.7 Phosphorus Magnesium Total Bilirubin AST ALT Alkaline Phosphatase Total Protein Albumin Triglycerides Lipase 05/23/25 05/23/25 05/23/25 02:33 03:30 03:42 WBC 6.2 RBC 3.13 L Hgb 9.1 L Hct 27.1 L MCV 86.6 MCH 29.1 MCHC 33.6 RDW 14.6 H Plt Count 192 MPV 9.8 Sodium 136 L Potassium 3.7 Chloride 101 Carbon Dioxide 28 Anion Gap 7 BUN 7 L Creatinine 0.64 L Estim Creat Clear Calc 152 Estimated GFR > 60 Glucose 154 H POC Capillary Glucose 175 H 167 H Calcium 9.4 Phosphorus 6.1 H Magnesium 1.6 Total Bilirubin 0.7 AST 22 ALT 80 H Alkaline Phosphatase 184 H Total Protein 6.6 Albumin 3.2 L Triglycerides 776 H Lipase 605 H 05/23/25 05/23/25 05/23/25 04:34 05:35 06:33 WBC RBC Hgb Hct MCV MCH MCHC RDW Plt Count MPV Sodium Potassium Chloride Carbon Dioxide Anion Gap BUN Creatinine Estim Creat Clear Calc Estimated GFR Glucose POC Capillary Glucose 200 H 239 H 273 H Calcium Phosphorus Magnesium Total Bilirubin AST ALT Alkaline Phosphatase Total Protein Albumin Triglycerides Lipase 05/23/25 07:36 WBC RBC Hgb Hct MCV MCH MCHC RDW Plt Count MPV Sodium Potassium Chloride Carbon Dioxide Anion Gap BUN Creatinine Estim Creat Clear Calc Estimated GFR Glucose POC Capillary Glucose 263 H Calcium Phosphorus Magnesium Total Bilirubin AST ALT Alkaline Phosphatase Total Protein Albumin Triglycerides Lipase Quality VTE Prophylaxis VTE prophylaxis: pharmacologic ordered
[2025-05-23 09:30] LABS: Iron 45 ug/dL (49-181)
[2025-05-23 09:39] LABS: Percent Iron Saturation 23 % (20-50)
[2025-05-23 10:49] LABS: Ferritin 1550.00 ng/mL (17.9-464)
--- NOTE | 2025-05-23 14:13 | P.PNIM_ITS ---
Progress Note: A&P Assessment and Plan (1) DKA (diabetic ketoacidosis): Qualifiers: Diabetes mellitus type: type 2 Diabetes mellitus complication detail: without coma Qualified Code(s): E11.10 - Type 2 diabetes mellitus with ketoacidosis without coma Code(s): E11.10 - Type 2 diabetes mellitus with ketoacidosis without coma Status: Acute Assessment and Plan: S/p insulin infusion and IVF Contineu lantus 20 units, Premeal 5 units and SSI with accucheks and monit r Patient has been seen by software educator and dietitian. consistent carbohydrate diet (2) DM2 (diabetes mellitus, type 2): Qualifiers: Diabetes mellitus bed bug exterminator insulin use: without bed bug exterminator use Diabetes mellitus complication status: with ketoacidosis Diabetes mellitus complication detail: without coma Qualified Code(s): E11.10 - Type 2 diabetes mellitus with ketoacidosis without coma Code(s): E11.9 - Type 2 diabetes mellitus without complications Status: Acute Assessment and Plan: Patient stated that he was diagnosed with diabetes 3-4 months ago but not on any treatment right now. Patient used to be on metformin -hemoglobin A1c this admission is 11.7 continue above care (3) Hypertriglyceridemia: Code(s): E78.1 - Pure hyperglyceridemia Status: Acute Assessment and Plan: Patient has history of hypertriglyceridemia and was on fenofibric acid and statin in the past but has not taken anything in last 3-4 months. Hypertriglyceridemia with triglycerides level >2625 on presentation which is Likely the cause of his pancreatitis He was started on insulin infusion along with IV fluids with dextrose and he is He is clinically improved and feels better. Triglyceride level is down to be less than 1000 I will transition him to subcutaneous insulin and discontinue IV fluids with dextrose. Continue monitor triglyceride levels Transition to low-fat diet Contain fenofibrate and statin Goal of TG <500 for discharge (4) REGULO (acute kidney injury): Code(s): N17.9 - Acute kidney failure, unspecified Status: Acute Assessment and Plan: Acute kidney injury, likely related to hypovolemia,, inflammatory changes related to pancreatitis resolved s/p IVF (5) Hyperkalemia: Code(s): E87.5 - Hyperkalemia Status: Acute Assessment and Plan: Hyperkalemia likely is multifactorial, acute kidney injury, metabolic ketoacidosis due DKA -initial pH was 6.96, patient received 3 amps of bicarb, Lokelma, insulin and D50 resolved (6) HLD (hyperlipidemia): Qualifiers: Hyperlipidemia type: unspecified Qualified Code(s): E78.5 - Hyperlipidemia, unspecified Code(s): E78.5 - Hyperlipidemia, unspecified Status: Acute Assessment and Plan: Continue statin (7) Pancreatitis: Qualifiers: Acute pancreatitis complication: no infection or necrosis Chronicity: acute Pancreatitis type: unspecified pancreatitis type Qualified Code(s): K85.90 - Acute pancreatitis without necrosis or infection, unspecified Code(s): K85.90 - Acute pancreatitis without necrosis or infection, unspecified Status: Acute Assessment and Plan: Acute pancreatitis related to hypertriglyceridemia Improved Advance diet to low-fat Pain control continue FEnofibrate and Lipitor as above (8) Electrolyte abnormality: Code(s): E87.8 - Other disorders of electrolyte and fluid balance, not elsewhere classified Status: Acute Assessment and Plan: Potassium replacement ordered Monitor electrolytes (9) Hypothyroidism: Code(s): E03.9 - Hypothyroidism, unspecified Status: Acute Assessment and Plan: Resume levothyroxine Thyroid function test reviewed (10) Bipolar mood disorder: Code(s): F31.9 - Bipolar disorder, unspecified Status: Acute Assessment and Plan: Patient has a distant history of bipolar mood disorder requiring hospitalization age of 17. He states he is not on any treatment for last 20 years. Patient's mother is adamant the patient is depressed with episodes of gucci. Patient at this time on exam and during my interview does not exhibit any signs of gucci and does not appear overtly depressed. He also denies any suicidal homicidal ideation per Motor Over[employer]uler eval Psych consulted (11) Scrotal irritation: Code(s): N50.89 - Other specified disorders of the male genital organs Status: Acute Assessment and Plan: Complained of scrotal discomfort in the ICU no abnormality on exam scrotal US ordered by regional business development manager pending Plan DVT prophylaxis: Heparin Stress ulcer prophylaxis:Protonix Nutrition: Advance to low-fat consistent carbohydrate diet Code Status: Full Code Incentive spirometry Up in chair Subjective Date/time seen: 05/23/25 14:13 Interval history: Comfortable at bedside now eating okay and awaiting TG <500 for discharge Review of Systems Review of Systems: All systems reviewed & are unremarkable except as noted in HPI and below Exam Narrative: General: Ill-appearing gentleman, HEENT:? Pupils equal and reactive, sclera is clear, moist oral mucous Neck:? Supple Respiratory:?Clear to auscultation bilaterally, no wheezing or rales Cardiac:? Sinus tachycardia Abdomen:? Mild Epigastric tenderness, no rebound, present but decreased bowel sounds, soft, protuberant obese Extremities:? No edema, palpable pedal pulse Neuro:? Patient is awake, alert, answers to questions appropriately and follows commands Skin:? No skin lesions noted Psych:? Normal orientation, normal speech and affect : Scrotal exam extubate no unilateral swelling mass or hydrocele. No redness or tenderness Const: Other: Patient appears uncomfortable, significantly ill-appearing, bilious emesis on hospital gown, , male. HENMT: Face/Nose/Sinus: Normal nares present Mouth: Yes dry mucous membranes Eyes: General: appearance normal, both eyes and all related structures Sclera: sclerae normal Pupils: Equal, round and reactive pupils present EOM: EOMs intact bilaterally Resp: Effort & Inspection: normal respiratory effort Auscultation: clear to auscultation bilaterally Cardio: Rate: tachycardic (Mild 110-115) Rhythm: regular rhythm Other: S1-S2 present without murmur, rub, ectopy GI: Other: Abdomen rounded, but nondistended. Soft with tenderness in the epigastric region and left upper quadrant region. hypoactive bowel sounds in all quadrants. Skin: General skin exam: normal color and no rashes or lesions noted Wounds: no wounds Neuro: Cranial nerves: Yes Equal, round and reactive pupils present Speech: normal speech Motor exam (neuro): 5/5 motor strength present throughout Sensory Exam: normal sensation Other: A&O x4 Extrem: General: normal to inspection Psych: Mental Status: mental status grossly normal Affect: normal affect Other: Fair insight and judgment Objective Data Vital Signs Vital Signs: Vital Signs - 24 hr 05/22/25 15:00 05/22/25 16:00 05/22/25 16:00 Temperature 98.4 F Pulse Rate 95 94 92 Respiratory Rate 24 H 17 Blood Pressure 113/76 122/76 Pulse Oximetry 100 99 Oxygen Delivery 05/22/25 17:00 05/22/25 17:55 05/22/25 18:00 Temperature Pulse Rate 91 91 96 Respiratory Rate 21 H 19 Blood Pressure 117/91 H 113/75 Pulse Oximetry 98 100 Oxygen Delivery 05/22/25 19:00 05/22/25 19:50 05/22/25 20:00 Temperature 98.2 F Pulse Rate 98 108 H 96 Respiratory Rate 17 21 H 14 Blood Pressure 146/110 H 122/79 Pulse Oximetry 98 98 97 Oxygen Delivery Room Air 05/22/25 20:00 05/22/25 21:00 05/22/25 22:00 Temperature Pulse Rate 102 H 91 91 Respiratory Rate 20 Blood Pressure 119/82 Pulse Oximetry 96 Oxygen Delivery 05/22/25 22:00 05/22/25 23:00 05/22/25 23:45 Temperature 98.4 F Pulse Rate 94 96 96 Respiratory Rate 21 H 20 20 Blood Pressure 115/81 121/74 Pulse Oximetry 98 98 98 Oxygen Delivery Room Air 05/23/25 00:00 05/23/25 00:00 05/23/25 01:00 Temperature 98.5 F Pulse Rate 90 90 86 Respiratory Rate 21 H 18 Blood Pressure 121/75 94/63 L Pulse Oximetry 98 97 Oxygen Delivery 05/23/25 02:00 05/23/25 02:00 05/23/25 03:47 Temperature Pulse Rate 86 86 99 Respiratory Rate 18 20 Blood Pressure 130/90 Pulse Oximetry 98 97 Oxygen Delivery Room Air 05/23/25 04:00 05/23/25 04:00 05/23/25 05:42 Temperature 98.4 F Pulse Rate 81 82 95 Respiratory Rate 19 21 H Blood Pressure 105/72 118/73 Pulse Oximetry 98 Oxygen Delivery 05/23/25 06:00 05/23/25 08:00 05/23/25 08:00 Temperature 98.1 F Pulse Rate 89 90 94 Respiratory Rate 15 Blood Pressure 124/86 Pulse Oximetry 100 Oxygen Delivery Intake/Output Intake/Output: Intake & Output 05/20/25 05/21/25 05/22/25 05/23/25 23:59 23:59 23:59 23:59 Intake Total 4575.4667 4295.4 3590.5 3131.2 Output Total 2600 4250 7200 3850 Balance 1975.4667 45.4 -3609.5 -718.8 Meds/Results Medications: Active Medications Generic Name Dose Route Start Last Admin Trade Name Freq PRN Reason Stop Dose Admin Acetaminophen 650 mg 05/19/25 12:55 Acetaminophen 325 Mg Tablet PO Q4H PRN Mild Pain (1-3) or Fever Atorvastatin Calcium 80 mg 05/21/25 09:00 05/23/25 08:13 Atorvastatin 40 Mg Tablet PO 80 mg DAILY BEBETO Administration Dextrose 12.5 gm 05/19/25 12:14 Dextrose 50% 25 Gm/50 Ml Syringe IV PUSH PRN PRN Hypoglycemia Protocol Fenofibrate 145 mg 05/21/25 09:00 05/23/25 08:13 Fenofibrate 145 Mg Tablet PO 145 mg QAM BEBETO Administration Glucagon 1 mg 05/19/25 12:14 Glucagon For Inj 1 Mg Vial IM PRN PRN Hypoglycemia Protocol Glucose 15 gm 05/19/25 12:14 Glucose Oral Gel 15 Gm Of Glucse In 37.5 Gm Tube PO PRN PRN Hypoglycemia Protocol Heparin Sodium (Porcine) 5,000 units 05/19/25 22:00 05/23/25 13:27 Heparin Sodium 5,000 Units/Ml Vial SUB-Q Not Given Q8HR BEBETO Dextrose 1,000 mls @ 100 mls/hr 05/19/25 12:14 Dextrose 5% 1,000 Ml IVPB PRN PRN Hypoglycemia Protocol Insulin Aspart 5 units 05/23/25 08:00 05/23/25 11:48 Insulin Aspart (*Bkc) 100 Units/Ml SUB-Q 5 units TIDWM BEBETO Administration Insulin Aspart 3 - 6 units 05/23/25 08:00 05/23/25 11:48 Insulin Aspart (*Bkc) 100 Units/Ml SUB-Q 6 units TIDWM BEBETO Administration Protocol Insulin Aspart 1 - 3 units 05/23/25 21:00 Insulin Aspart (*Bkc) 100 Units/Ml SUB-Q HS [facility] Protocol Insulin Glargine 20 units 05/23/25 07:40 05/23/25 08:20 Insulin Glargine (*Bkc) 100 Units/Ml 0.2 units/kg (20 units) Not Given SUB-Q QAM [facility]BETO Levothyroxine Sodium 75 mcg 05/22/25 06:30 05/23/25 06:33 Levothyroxine Sodium 75 Mcg Tablet PO 75 mcg DAILY@0630 BEBETO Administration Ondansetron HCl 4 mg 05/19/25 12:55 05/20/25 08:50 Ondansetron Inj 4 Mg/2 Ml Vial IV PUSH 4 mg Q4H PRN Administration Nausea Pantoprazole Sodium 40 mg 05/20/25 09:00 05/23/25 08:13 Pantoprazole Sodium Iv 40 Mg Vial IV PUSH 40 mg Q12H BEBETO Administration Polyethylene Glycol 17 gm 05/21/25 09:00 05/23/25 08:14 Polyethylene Glycol 3350 17 Gm Powd.Pack PO Not Given QAM [facility] Radiology Results: ITS Impressions Chest X-Ray 05/19/25 12:24 IMPRESSION: 1. No acute cardiopulmonary findings given portable technique. Abdomen/Pelvis CT 05/19/25 12:43 IMPRESSION: 1. Severe pancreatitis and/or gastroduodenitis. Abdomen X-Ray 05/21/25 13:15 Impression: 1. Nonspecific bowel gas pattern Labs Labs: Laboratory Results - last 24 hr 05/22/25 05/22/25 05/22/25 15:00 15:53 16:06 WBC RBC Hgb Hct MCV MCH MCHC RDW Plt Count MPV Sodium 134 L Potassium 4.0 Chloride 102 Carbon Dioxide 22 Anion Gap 10 BUN 8 L Creatinine 0.60 L Estim Creat Clear Calc 161 Estimated GFR > 60 Glucose 155 H POC Capillary Glucose 173 H 174 H Calcium 9.4 Phosphorus Magnesium Iron TIBC % Saturation Ferritin Total Bilirubin AST ALT Alkaline Phosphatase Total Protein Albumin Triglycerides 1091 H Lipase 05/22/25 05/22/25 05/22/25 17:08 17:58 19:19 WBC RBC Hgb Hct MCV MCH MCHC RDW Plt Count MPV Sodium Potassium Chloride Carbon Dioxide Anion Gap BUN Creatinine Estim Creat Clear Calc Estimated GFR Glucose POC Capillary Glucose 190 H 255 H 371 H Calcium Phosphorus Magnesium Iron TIBC % Saturation Ferritin Total Bilirubin AST ALT Alkaline Phosphatase Total Protein Albumin Triglycerides Lipase 05/22/25 05/22/25 05/22/25 19:47 20:21 21:25 WBC RBC Hgb Hct MCV MCH MCHC RDW Plt Count MPV Sodium 130 L Potassium 3.9 Chloride 98 Carbon Dioxide 25 Anion Gap 7 BUN 8 L Creatinine 0.58 L Estim Creat Clear Calc 166 Estimated GFR > 60 Glucose 364 H POC Capillary Glucose 382 H 331 H Calcium 8.8 Phosphorus Magnesium Iron TIBC % Saturation Ferritin Total Bilirubin AST ALT Alkaline Phosphatase Total Protein Albumin Triglycerides Lipase 05/22/25 05/22/25 05/23/25 22:30 23:35 00:14 WBC RBC Hgb Hct MCV MCH MCHC RDW Plt Count MPV Sodium 135 L Potassium 3.6 Chloride 99 Carbon Dioxide 28 Anion Gap 8 BUN 7 L Creatinine 0.63 L Estim Creat Clear Calc 154 Estimated GFR > 60 Glucose 231 H POC Capillary Glucose 317 H 297 H Calcium 9.7 Phosphorus Magnesium Iron 45 L TIBC 194 L % Saturation 23 Ferritin 1550.00 H Total Bilirubin AST ALT Alkaline Phosphatase Total Protein Albumin Triglycerides Lipase 05/23/25 05/23/25 05/23/25 00:24 01:34 02:33 WBC RBC Hgb Hct MCV MCH MCHC RDW Plt Count MPV Sodium Potassium Chloride Carbon Dioxide Anion Gap BUN Creatinine Estim Creat Clear Calc Estimated GFR Glucose POC Capillary Glucose 231 H 202 H 175 H Calcium Phosphorus Magnesium Iron TIBC % Saturation Ferritin Total Bilirubin AST ALT Alkaline Phosphatase Total Protein Albumin Triglycerides Lipase 05/23/25 05/23/25 05/23/25 03:30 03:42 04:34 WBC 6.2 RBC 3.13 L Hgb 9.1 L Hct 27.1 L MCV 86.6 MCH 29.1 MCHC 33.6 RDW 14.6 H Plt Count 192 MPV 9.8 Sodium 136 L Potassium 3.7 Chloride 101 Carbon Dioxide 28 Anion Gap 7 BUN 7 L Creatinine 0.64 L Estim Creat Clear Calc 152 Estimated GFR > 60 Glucose 154 H POC Capillary Glucose 167 H 200 H Calcium 9.4 Phosphorus 6.1 H Magnesium 1.6 Iron TIBC % Saturation Ferritin Total Bilirubin 0.7 AST 22 ALT 80 H Alkaline Phosphatase 184 H Total Protein 6.6 Albumin 3.2 L Triglycerides 776 H Lipase 605 H 05/23/25 05/23/25 05/23/25 05:35 06:33 07:36 WBC RBC Hgb Hct MCV MCH MCHC RDW Plt Count MPV Sodium Potassium Chloride Carbon Dioxide Anion Gap BUN Creatinine Estim Creat Clear Calc Estimated GFR Glucose POC Capillary Glucose 239 H 273 H 263 H Calcium Phosphorus Magnesium Iron TIBC % Saturation Ferritin Total Bilirubin AST ALT Alkaline Phosphatase Total Protein Albumin Triglycerides Lipase 05/23/25 11:41 WBC RBC Hgb Hct MCV MCH MCHC RDW Plt Count MPV Sodium Potassium Chloride Carbon Dioxide Anion Gap BUN Creatinine Estim Creat Clear Calc Estimated GFR Glucose POC Capillary Glucose 388 H Calcium Phosphorus Magnesium Iron TIBC % Saturation Ferritin Total Bilirubin AST ALT Alkaline Phosphatase Total Protein Albumin Triglycerides Lipase Quality VTE Prophylaxis VTE prophylaxis: pharmacologic ordered
[2025-05-23] MEDS: ACETAMINOPHEN 325 MG TABLET 650 MG PO (17:46)
[2025-05-24 06:00] VITALS: BP 103/66; PULSE 89; RESP 14; TEMP 36.3; O2SAT 98
[2025-05-24 06:18] LABS: Hematocrit 29.1 % (42.0-52.0); Hemoglobin 9.4 g/dL (14.0-18.0); Mean Corpuscular HGB Conc 32.3 g/dl (32-36); Mean Corpuscular Hemoglobin 28.8 pg (26-34); Mean Corpuscular Volume 89.3 fl (80-100); Platelet Count Result 207 k/mm3 (150-375); Red Blood Count 3.26 M/mm3 (4.6-6.20); White Blood Count 5.1 K/mm3 (4.5-10.0)
[2025-05-24] MEDS: LEVOTHYROXINE SODIUM 75 MCG TABLET PO (06:42)
[2025-05-24 07:03] LABS: Alanine Aminotransferase 59 U/L (6-50); Albumin Level 3.4 g/dL (3.5-5.1); Alkaline Phosphatase 185 U/L (38-126); Anion Gap 8 mmol/L (4-12); Aspartate Amino Transferase 25 U/L (17-59); Bilirubin,Total 0.7 mg/dL (0.2-1.3); Blood Urea Nitrogen 14 mg/dL (9-20); Calcium 9.6 mg/dL (8.4-10.2); Carbon Dioxide 27 mmol/L (22-30); Chloride 96 mmol/L (98-107); Estimated CRCL calculation 124 ml/min; Estimated Glomerular Filt Rate > 60; Glucose 353 mg/dL (65-110); Lipase 570 U/L (23-300); Magnesium 1.8 mg/dL (1.6-2.3); Potassium 4.6 mmol/L (3.4-5.0); Sodium 131 mmol/L (137-145); Total Protein 6.7 g/dL (6.3-8.2)
[2025-05-24 07:12] LABS: Triglycerides 709 mg/dL (<150)
--- NOTE | 2025-05-24 07:36 | WPDPN ---
Subjective Date/time seen: 05/24/25 0634 Interval history: Attempt to see patient for psychiatry evaluation this morning, pt asleep/droswy and not able to participate in eval- will attempt re-eval at later time. Objective Data Vital Signs Vital Signs: Vital Signs - 24 hr 05/23/25 08:00 05/23/25 08:00 05/23/25 12:25 Temperature 98.1 F 97.3 F L Pulse Rate 90 94 94 Respiratory Rate 15 16 Blood Pressure 124/86 126/79 Pulse Oximetry 100 99 Oxygen Delivery 05/23/25 14:00 05/23/25 22:00 05/23/25 22:53 Temperature 97.0 F L 98.2 F Pulse Rate 92 87 Respiratory Rate 16 16 Blood Pressure 113/82 115/65 Pulse Oximetry 97 100 99 Oxygen Delivery Room Air 05/24/25 06:00 Temperature 97.4 F L Pulse Rate 89 Respiratory Rate 14 Blood Pressure 103/66 Pulse Oximetry 98 Oxygen Delivery Intake/Output Intake/Output: Intake & Output 05/21/25 05/22/25 05/23/25 05/24/25 23:59 23:59 23:59 23:59 Intake Total 4295.4 3590.5 3251.2 1000 Output Total 4250 7200 3850 Balance 45.4 -3609.5 -598.8 1000 Meds/Results Medications: Active Medications Generic Name Dose Route Start Last Admin Trade Name Freq PRN Reason Stop Dose Admin Acetaminophen 650 mg 05/19/25 12:55 05/23/25 17:46 Acetaminophen 325 Mg Tablet PO 650 mg Q4H PRN Administration Mild Pain (1-3) or Fever Atorvastatin Calcium 80 mg 05/21/25 09:00 05/23/25 08:13 Atorvastatin 40 Mg Tablet PO 80 mg DAILY BEBETO Administration Dextrose 12.5 gm 05/19/25 12:14 Dextrose 50% 25 Gm/50 Ml Syringe IV PUSH PRN PRN Hypoglycemia Protocol Fenofibrate 145 mg 05/21/25 09:00 05/23/25 08:13 Fenofibrate 145 Mg Tablet PO 145 mg QAM BEBETO Administration Glucagon 1 mg 05/19/25 12:14 Glucagon For Inj 1 Mg Vial IM PRN PRN Hypoglycemia Protocol Glucose 15 gm 05/19/25 12:14 Glucose Oral Gel 15 Gm Of Glucse In 37.5 Gm Tube PO PRN PRN Hypoglycemia Protocol Heparin Sodium (Porcine) 5,000 units 05/19/25 22:00 05/24/25 06:41 Heparin Sodium 5,000 Units/Ml Vial SUB-Q Not Given Q8HR BEBETO Dextrose 1,000 mls @ 100 mls/hr 05/19/25 12:14 Dextrose 5% 1,000 Ml IVPB PRN PRN Hypoglycemia Protocol Insulin Aspart 5 units 05/23/25 08:00 05/23/25 17:35 Insulin Aspart (*Bkc) 100 Units/Ml SUB-Q 5 units TIDWM BEBETO Administration Insulin Aspart 3 - 6 units 05/23/25 08:00 05/23/25 17:36 Insulin Aspart (*Bkc) 100 Units/Ml SUB-Q 5 units TIDWM BEBETO Administration Protocol Insulin Aspart 1 - 3 units 05/23/25 21:00 05/23/25 20:34 Insulin Aspart (*Bkc) 100 Units/Ml SUB-Q 1 units HS BEBETO Administration Protocol Insulin Glargine 20 units 05/23/25 07:40 05/23/25 08:20 Insulin Glargine (*Bkc) 100 Units/Ml 0.2 units/kg (20 units) Not Given SUB-Q QAM [facility] Levothyroxine Sodium 75 mcg 05/22/25 06:30 05/24/25 06:42 Levothyroxine Sodium 75 Mcg Tablet PO 75 mcg DAILY@0630 BEBETO Administration Ondansetron HCl 4 mg 05/19/25 12:55 05/20/25 08:50 Ondansetron Inj 4 Mg/2 Ml Vial IV PUSH 4 mg Q4H PRN Administration Nausea Pantoprazole Sodium 40 mg 05/20/25 09:00 05/23/25 20:36 Pantoprazole Sodium Iv 40 Mg Vial IV PUSH 40 mg Q12H [facility]BETO Administration Polyethylene Glycol 17 gm 05/21/25 09:00 05/23/25 08:14 Polyethylene Glycol 3350 17 Gm Powd.Pack PO Not Given QAM [facility] Radiology Results: ITS Impressions Chest X-Ray 05/19/25 12:24 IMPRESSION: 1. No acute cardiopulmonary findings given portable technique. Abdomen/Pelvis CT 05/19/25 12:43 IMPRESSION: 1. Severe pancreatitis and/or gastroduodenitis. Abdomen X-Ray 05/21/25 13:15 Impression: 1. Nonspecific bowel gas pattern Scrotum Ultrasound 05/23/25 16:53 Impression: No acute abnormality. Labs Labs: Laboratory Results - last 24 hr 05/23/25 05/23/25 05/23/25 00:14 07:36 11:41 WBC RBC Hgb Hct MCV MCH MCHC RDW Plt Count MPV Sodium Potassium Chloride Carbon Dioxide Anion Gap BUN Creatinine Estim Creat Clear Calc Estimated GFR Glucose POC Capillary Glucose 263 H 388 H Calcium Phosphorus Magnesium Iron 45 L TIBC 194 L % Saturation 23 Ferritin 1550.00 H Total Bilirubin AST ALT Alkaline Phosphatase Total Protein Albumin Triglycerides Lipase 05/23/25 05/23/25 05/23/25 17:18 20:28 22:04 WBC RBC Hgb Hct MCV MCH MCHC RDW Plt Count MPV Sodium Potassium Chloride Carbon Dioxide Anion Gap BUN Creatinine Estim Creat Clear Calc Estimated GFR Glucose POC Capillary Glucose 321 H 333 H 266 H Calcium Phosphorus Magnesium Iron TIBC % Saturation Ferritin Total Bilirubin AST ALT Alkaline Phosphatase Total Protein Albumin Triglycerides Lipase 05/24/25 05:53 WBC 5.1 RBC 3.26 L Hgb 9.4 L Hct 29.1 L MCV 89.3 MCH 28.8 MCHC 32.3 RDW 14.1 Plt Count 207 MPV 9.9 Sodium 131 L Potassium 4.6 Chloride 96 L Carbon Dioxide 27 Anion Gap 8 BUN 14 D Creatinine 0.78 Estim Creat Clear Calc 124 Estimated GFR > 60 Glucose 353 H POC Capillary Glucose Calcium 9.6 Phosphorus 5.4 H Magnesium 1.8 Iron TIBC % Saturation Ferritin Total Bilirubin 0.7 AST 25 ALT 59 H Alkaline Phosphatase 185 H Total Protein 6.7 Albumin 3.4 L Triglycerides 709 H Lipase 570 H
[2025-05-24] MEDS: INSULIN ASPART (*BKC) 100 UNITS/ML SUB-Q ×6 (07:53→20:24)
[2025-05-24] MEDS: INSULIN GLARGINE (*BKC) 100 UNITS/ML 20 UNITS SUB-Q (07:59)
[2025-05-24] MEDS: FENOFIBRATE 145 MG TABLET PO (08:51)
[2025-05-24] MEDS: ATORVASTATIN 40 MG TABLET 80 MG PO (08:51)
[2025-05-24] MEDS: PANTOPRAZOLE SODIUM IV 40 MG VIAL IV PUSH ×2 (08:51→20:19)
[2025-05-24 13:23] VITALS: BP 126/75; PULSE 95; RESP 18; TEMP 36.8; O2SAT 99
--- NOTE | 2025-05-24 14:25 | PM.IMPN ---
Progress Note: A&P Assessment and Plan (1) DKA (diabetic ketoacidosis): Qualifiers: Diabetes mellitus type: type 2 Diabetes mellitus complication detail: without coma Qualified Code(s): E11.10 - Type 2 diabetes mellitus with ketoacidosis without coma Code(s): E11.10 - Type 2 diabetes mellitus with ketoacidosis without coma Status: Acute Assessment and Plan: S/p insulin infusion and IVF Contineu lantus 20 units, Premeal 5 units and SSI with accucheks and monit r Patient has been seen by subway train operator and dietitian. consistent carbohydrate diet (2) DM2 (diabetes mellitus, type 2): Qualifiers: Diabetes mellitus termite renewal inspector insulin use: without fpc use Diabetes mellitus complication status: with ketoacidosis Diabetes mellitus complication detail: without coma Qualified Code(s): E11.10 - Type 2 diabetes mellitus with ketoacidosis without coma Code(s): E11.9 - Type 2 diabetes mellitus without complications Status: Acute Assessment and Plan: Patient stated that he was diagnosed with diabetes 3-4 months ago but not on any treatment right now. Patient used to be on metformin -hemoglobin A1c this admission is 11.7 continue above care Will check for insulin antibodies to rule out type 1 diabetes. With concurrent hypothyroidism early in his life, autoimmunity is also possible. Will also check C-peptide level (3) Hypertriglyceridemia: Code(s): E78.1 - Pure hyperglyceridemia Status: Acute Assessment and Plan: Patient has history of hypertriglyceridemia and was on fenofibric acid and statin in the past but has not taken anything in last 3-4 months. Hypertriglyceridemia with triglycerides level >2625 on presentation which is Likely the cause of his pancreatitis He was started on insulin infusion along with IV fluids with dextrose and he is He is clinically improved and feels better. Triglyceride level is down to be less than 1000 Transitioned to subcutaneous insulin and discontinue IV fluids with dextrose. Continue monitor triglyceride levels Transition to low-fat diet Contain fenofibrate and statin Goal of TG <500 for discharge (4) REGULO (acute kidney injury): Code(s): N17.9 - Acute kidney failure, unspecified Status: Acute Assessment and Plan: Acute kidney injury, likely related to hypovolemia,, inflammatory changes related to pancreatitis resolved s/p IVF (5) Hyperkalemia: Code(s): E87.5 - Hyperkalemia Status: Acute Assessment and Plan: Hyperkalemia likely is multifactorial, acute kidney injury, metabolic ketoacidosis due DKA -initial pH was 6.96, patient received 3 amps of bicarb, Lokelma, insulin and D50 resolved (6) HLD (hyperlipidemia): Qualifiers: Hyperlipidemia type: unspecified Qualified Code(s): E78.5 - Hyperlipidemia, unspecified Code(s): E78.5 - Hyperlipidemia, unspecified Status: Acute Assessment and Plan: Continue statin (7) Pancreatitis: Qualifiers: Acute pancreatitis complication: no infection or necrosis Chronicity: acute Pancreatitis type: unspecified pancreatitis type Qualified Code(s): K85.90 - Acute pancreatitis without necrosis or infection, unspecified Code(s): K85.90 - Acute pancreatitis without necrosis or infection, unspecified Status: Acute Assessment and Plan: Acute pancreatitis related to hypertriglyceridemia Improved Advance diet to low-fat Pain control continue FEnofibrate and Lipitor as above (8) Electrolyte abnormality: Code(s): E87.8 - Other disorders of electrolyte and fluid balance, not elsewhere classified Status: Acute Assessment and Plan: Potassium replacement ordered Monitor electrolytes (9) Hypothyroidism: Code(s): E03.9 - Hypothyroidism, unspecified Status: Acute Assessment and Plan: Resume levothyroxine Thyroid function test reviewed (10) Bipolar mood disorder: Code(s): F31.9 - Bipolar disorder, unspecified Status: Acute Assessment and Plan: Patient has a distant history of bipolar mood disorder requiring hospitalization age of 17. He states he is not on any treatment for last 20 years. Patient's mother is adamant the patient is depressed with episodes of gucci. Patient at this time on exam and during my interview does not exhibit any signs of gucci and does not appear overtly depressed. He also denies any suicidal homicidal ideation per Lasting Floorworker eval Psych consulted (11) Scrotal irritation: Code(s): N50.89 - Other specified disorders of the male genital organs Status: Acute Assessment and Plan: Complained of scrotal discomfort in the ICU no abnormality on exam scrotal US ordered by csr retail pending Plan DVT prophylaxis: Heparin Stress ulcer prophylaxis:Protonix Nutrition: Advance to low-fat consistent carbohydrate diet Code Status: Full Code Incentive spirometry Up in chair Subjective Date/time seen: 05/24/25 14:25 Interval history: No overnight events. Feels better. Denies any abdominal pain. Tolerating diet. Blood sugar trend reviewed. Review of Systems Review of Systems: All systems reviewed & are unremarkable except as noted in HPI and below Exam Narrative: General: Well appearing gentleman, acute distress HEENT:? Pupils equal and reactive, sclera is clear, moist oral mucous Neck:? Supple Respiratory:?Clear to auscultation bilaterally, no wheezing or rales Cardiac:? Regular rate and rhythm Abdomen:? Nontender, soft, not distended Extremities:? No edema, palpable pedal pulse Neuro:? Patient is awake, alert, answers to questions appropriately and follows commands Skin:? No skin lesions noted Psych:? Normal orientation, normal speech and affect Objective Data Vital Signs Vital Signs: Vital Signs - 24 hr 05/23/25 22:00 05/23/25 22:53 05/24/25 06:00 Temperature 98.2 F 97.4 F L Pulse Rate 87 89 Respiratory Rate 16 14 Blood Pressure 115/65 103/66 Pulse Oximetry 100 99 98 Oxygen Delivery Room Air 05/24/25 08:00 05/24/25 13:23 Temperature 98.3 F Pulse Rate 95 Respiratory Rate 18 Blood Pressure 126/75 Pulse Oximetry 99 Oxygen Delivery Room Air Intake/Output Intake/Output: Intake & Output 05/21/25 05/22/25 05/23/25 05/24/25 23:59 23:59 23:59 23:59 Intake Total 4295.4 3590.5 3251.2 1979 Output Total 4250 7200 3850 Balance 45.4 -3609.5 -598.8 1979 Meds/Results Medications: Active Medications Generic Name Dose Route Start Last Admin Trade Name Freq PRN Reason Stop Dose Admin Acetaminophen 650 mg 05/19/25 12:55 05/23/25 17:46 Acetaminophen 325 Mg Tablet PO 650 mg Q4H PRN Administration Mild Pain (1-3) or Fever Atorvastatin Calcium 80 mg 05/21/25 09:00 05/24/25 08:51 Atorvastatin 40 Mg Tablet PO 80 mg DAILY BEBETO Administration Dextrose 12.5 gm 05/19/25 12:14 Dextrose 50% 25 Gm/50 Ml Syringe IV PUSH PRN PRN Hypoglycemia Protocol Fenofibrate 145 mg 05/21/25 09:00 05/24/25 08:51 Fenofibrate 145 Mg Tablet PO 145 mg QAM BEBETO Administration Glucagon 1 mg 05/19/25 12:14 Glucagon For Inj 1 Mg Vial IM PRN PRN Hypoglycemia Protocol Glucose 15 gm 05/19/25 12:14 Glucose Oral Gel 15 Gm Of Glucse In 37.5 Gm Tube PO PRN PRN Hypoglycemia Protocol Heparin Sodium (Porcine) 5,000 units 05/19/25 22:00 05/24/25 06:41 Heparin Sodium 5,000 Units/Ml Vial SUB-Q Not Given Q8HR [facility] [place] Dextrose 1,000 mls @ 100 mls/hr 05/19/25 12:14 Dextrose 5% 1,000 Ml IVPB PRN PRN Hypoglycemia Protocol Insulin Aspart 5 units 05/23/25 08:00 05/24/25 12:04 Insulin Aspart (*Bkc) 100 Units/Ml SUB-Q 5 units TIDWM BEBETO Administration Insulin Aspart 3 - 6 units 05/23/25 08:00 05/24/25 12:03 Insulin Aspart (*Bkc) 100 Units/Ml SUB-Q 5 units TIDWM BEBETO Administration Protocol Insulin Aspart 1 - 3 units 05/23/25 21:00 05/23/25 20:34 Insulin Aspart (*Bkc) 100 Units/Ml SUB-Q 1 units HS BEBETO Administration Protocol Insulin Glargine 20 units 05/23/25 07:40 05/24/25 07:59 Insulin Glargine (*Bkc) 100 Units/Ml 0.2 units/kg (20 units) 20 units SUB-Q Administration QAM [facility] Levothyroxine Sodium 75 mcg 05/22/25 06:30 05/24/25 06:42 Levothyroxine Sodium 75 Mcg Tablet PO 75 mcg DAILY@0630 BEBETO Administration Ondansetron HCl 4 mg 05/19/25 12:55 05/20/25 08:50 Ondansetron Inj 4 Mg/2 Ml Vial IV PUSH 4 mg Q4H PRN Administration Nausea Pantoprazole Sodium 40 mg 05/20/25 09:00 05/24/25 08:51 Pantoprazole Sodium Iv 40 Mg Vial IV PUSH 40 mg Q12H BEBETO Administration Polyethylene Glycol 17 gm 05/21/25 09:00 05/24/25 08:51 Polyethylene Glycol 3350 17 Gm Powd.Pack PO 17 gm QAM BEBETO Administration Radiology Results: ITS Impressions Chest X-Ray 05/19/25 12:24 IMPRESSION: 1. No acute cardiopulmonary findings given portable technique. Abdomen/Pelvis CT 05/19/25 12:43 IMPRESSION: 1. Severe pancreatitis and/or gastroduodenitis. Abdomen X-Ray 05/21/25 13:15 Impression: 1. Nonspecific bowel gas pattern Scrotum Ultrasound 05/23/25 16:53 Impression: No acute abnormality. Labs Labs: Laboratory Results - last 24 hr 05/23/25 05/23/25 05/23/25 17:18 20:28 22:04 WBC RBC Hgb Hct MCV MCH MCHC RDW Plt Count MPV Sodium Potassium Chloride Carbon Dioxide Anion Gap BUN Creatinine Estim Creat Clear Calc Estimated GFR Glucose POC Capillary Glucose 321 H 333 H 266 H Calcium Phosphorus Magnesium Total Bilirubin AST ALT Alkaline Phosphatase Total Protein Albumin Triglycerides Lipase 05/24/25 05/24/25 05/24/25 05:53 07:28 11:48 WBC 5.1 RBC 3.26 L Hgb 9.4 L Hct 29.1 L MCV 89.3 MCH 28.8 MCHC 32.3 RDW 14.1 Plt Count 207 MPV 9.9 Sodium 131 L Potassium 4.6 Chloride 96 L Carbon Dioxide 27 Anion Gap 8 BUN 14 D Creatinine 0.78 Estim Creat Clear Calc 124 Estimated GFR > 60 Glucose 353 H POC Capillary Glucose 341 H 333 H Calcium 9.6 Phosphorus 5.4 H Magnesium 1.8 Total Bilirubin 0.7 AST 25 ALT 59 H Alkaline Phosphatase 185 H Total Protein 6.7 Albumin 3.4 L Triglycerides 709 H Lipase 570 H 05/24/25 13:03 WBC RBC Hgb Hct MCV MCH MCHC RDW Plt Count MPV Sodium Potassium Chloride Carbon Dioxide Anion Gap BUN Creatinine Estim Creat Clear Calc Estimated GFR Glucose POC Capillary Glucose 321 H Calcium Phosphorus Magnesium Total Bilirubin AST ALT Alkaline Phosphatase Total Protein Albumin Triglycerides Lipase
--- NOTE | 2025-05-24 15:09 | PCCDE ---
05/24/25: 11:30 am POC: 05/23: [phone] 05/24: 341 (Pre-L 333) eGFR: >60 since 05/21: AST: 25 (wnl 05/24) ALT: 59 (down from 199) ALb 3.4 (up from 2.9) T/31: 709 (Improved) - Attended Rounds and recommended: * Lantus increase to 25 U Novolog 6 U TIDwm (up from 5 U) Continue sliding scale insulin - At rounds I was advised no insurance - Stopped in to follow up with patient on Carb consistent x 1 day (he is trying to minimize them) - he states he has a co-op ([email or web address]) insurance that at home ([place]) he's confident about getting his medications. -- Discussed discount/insulin coupons - Doubts they will cover/contribute to inpatient admission. - Reviewed his glucose and liver labs ---- patient open to insulin titration. ----Cautioned patient re: supplements and Liver --- Educated re: DETENTION on supplement label.
[2025-05-24] MEDS: INSULIN ASPART (*BKC) 100 UNITS/ML 8 UNITS SUB-Q (16:54)
--- NOTE | 2025-05-24 16:58 | WPDPN ---
Subjective Date/time seen: 05/24/25 16:58 Interval history: Attempted to see patient to complete consult. Currently has a visitor and politely declines evaluation at this time. Will re-visit consult as able. Patient denies acute concerns at this time. Objective Data Vital Signs Vital Signs: Vital Signs - 24 hr 05/23/25 22:00 05/23/25 22:53 05/24/25 06:00 Temperature 98.2 F 97.4 F L Pulse Rate 87 89 Respiratory Rate 16 14 Blood Pressure 115/65 103/66 Pulse Oximetry 100 99 98 Oxygen Delivery Room Air 05/24/25 08:00 05/24/25 13:23 Temperature 98.3 F Pulse Rate 95 Respiratory Rate 18 Blood Pressure 126/75 Pulse Oximetry 99 Oxygen Delivery Room Air Intake/Output Intake/Output: Intake & Output 05/21/25 05/22/25 05/23/25 05/24/25 23:59 23:59 23:59 23:59 Intake Total 4295.4 3590.5 3251.2 1979 Output Total 4250 7200 3850 Balance 45.4 -3609.5 -598.8 1979 Meds/Results Medications: Active Medications Generic Name Dose Route Start Last Admin Trade Name Freq PRN Reason Stop Dose Admin Acetaminophen 650 mg 05/19/25 12:55 05/23/25 17:46 Acetaminophen 325 Mg Tablet PO 650 mg Q4H PRN Administration Mild Pain (1-3) or Fever Atorvastatin Calcium 80 mg 05/21/25 09:00 05/24/25 08:51 Atorvastatin 40 Mg Tablet PO 80 mg DAILY BEBETO Administration Dextrose 12.5 gm 05/19/25 12:14 Dextrose 50% 25 Gm/50 Ml Syringe IV PUSH PRN PRN Hypoglycemia Protocol Fenofibrate 145 mg 05/21/25 09:00 05/24/25 08:51 Fenofibrate 145 Mg Tablet PO 145 mg QAM BEBETO Administration Glucagon 1 mg 05/19/25 12:14 Glucagon For Inj 1 Mg Vial IM PRN PRN Hypoglycemia Protocol Glucose 15 gm 05/19/25 12:14 Glucose Oral Gel 15 Gm Of Glucse In 37.5 Gm Tube PO PRN PRN Hypoglycemia Protocol Heparin Sodium (Porcine) 5,000 units 05/19/25 22:00 05/24/25 14:28 Heparin Sodium 5,000 Units/Ml Vial SUB-Q Not Given Q8HR BEBETO Dextrose 1,000 mls @ 100 mls/hr 05/19/25 12:14 Dextrose 5% 1,000 Ml IVPB PRN PRN Hypoglycemia Protocol Insulin Aspart 3 - 6 units 05/23/25 08:00 05/24/25 12:03 Insulin Aspart (*Bkc) 100 Units/Ml SUB-Q 5 units TIDWM BEBETO Administration Protocol Insulin Aspart 1 - 3 units 05/23/25 21:00 05/23/25 20:34 Insulin Aspart (*Bkc) 100 Units/Ml SUB-Q 1 units HS BEBETO Administration Protocol Insulin Aspart 8 units 05/24/25 17:00 Insulin Aspart (*Bkc) 100 Units/Ml SUB-Q TIDWM BEBETO Insulin Glargine 25 units 05/25/25 09:00 Insulin Glargine (*Bkc) 100 Units/Ml SUB-Q QAM BEBETO Levothyroxine Sodium 75 mcg 05/22/25 06:30 05/24/25 06:42 Levothyroxine Sodium 75 Mcg Tablet PO 75 mcg DAILY@0630 BEBETO Administration Ondansetron HCl 4 mg 05/19/25 12:55 05/20/25 08:50 Ondansetron Inj 4 Mg/2 Ml Vial IV PUSH 4 mg Q4H PRN Administration Nausea Pantoprazole Sodium 40 mg 05/20/25 09:00 05/24/25 08:51 Pantoprazole Sodium Iv 40 Mg Vial IV PUSH 40 mg Q12H BEBETO Administration Polyethylene Glycol 17 gm 05/21/25 09:00 05/24/25 08:51 Polyethylene Glycol 3350 17 Gm Powd.Pack PO 17 gm QAM BEBETO Administration Radiology Results: ITS Impressions Chest X-Ray 05/19/25 12:24 IMPRESSION: 1. No acute cardiopulmonary findings given portable technique. Abdomen/Pelvis CT 05/19/25 12:43 IMPRESSION: 1. Severe pancreatitis and/or gastroduodenitis. Abdomen X-Ray 05/21/25 13:15 Impression: 1. Nonspecific bowel gas pattern Scrotum Ultrasound 05/23/25 16:53 Impression: No acute abnormality. Labs Labs: Laboratory Results - last 24 hr 05/23/25 05/23/25 05/23/25 17:18 20:28 22:04 WBC RBC Hgb Hct MCV MCH MCHC RDW Plt Count MPV Sodium Potassium Chloride Carbon Dioxide Anion Gap BUN Creatinine Estim Creat Clear Calc Estimated GFR Glucose POC Capillary Glucose 321 H 333 H 266 H Calcium Phosphorus Magnesium Total Bilirubin AST ALT Alkaline Phosphatase Total Protein Albumin Triglycerides Lipase 05/24/25 05/24/25 05/24/25 05:53 07:28 11:48 WBC 5.1 RBC 3.26 L Hgb 9.4 L Hct 29.1 L MCV 89.3 MCH 28.8 MCHC 32.3 RDW 14.1 Plt Count 207 MPV 9.9 Sodium 131 L Potassium 4.6 Chloride 96 L Carbon Dioxide 27 Anion Gap 8 BUN 14 D Creatinine 0.78 Estim Creat Clear Calc 124 Estimated GFR > 60 Glucose 353 H POC Capillary Glucose 341 H 333 H Calcium 9.6 Phosphorus 5.4 H Magnesium 1.8 Total Bilirubin 0.7 AST 25 ALT 59 H Alkaline Phosphatase 185 H Total Protein 6.7 Albumin 3.4 L Triglycerides 709 H Lipase 570 H 05/24/25 05/24/25 05/24/25 13:03 14:33 16:47 WBC RBC Hgb Hct MCV MCH MCHC RDW Plt Count MPV Sodium Potassium Chloride Carbon Dioxide Anion Gap BUN Creatinine Estim Creat Clear Calc Estimated GFR Glucose POC Capillary Glucose 321 H 309 H 395 H Calcium Phosphorus Magnesium Total Bilirubin AST ALT Alkaline Phosphatase Total Protein Albumin Triglycerides Lipase
[2025-05-24] MEDS: ACETAMINOPHEN 325 MG TABLET 650 MG PO (20:22)
[2025-05-24 21:30] VITALS: BP 165/79; PULSE 73; RESP 18; TEMP 36.8; O2SAT 97
[2025-05-25] MEDS: LEVOTHYROXINE SODIUM 75 MCG TABLET PO (05:48)
[2025-05-25 05:57] VITALS: BP 116/75; PULSE 81; RESP 18; TEMP 36.2; O2SAT 99
[2025-05-25 06:17] LABS: Hematocrit 33.7 % (42.0-52.0); Hemoglobin 10.9 g/dL (14.0-18.0); Mean Corpuscular HGB Conc 32.3 g/dl (32-36); Mean Corpuscular Hemoglobin 29.0 pg (26-34); Mean Corpuscular Volume 89.6 fl (80-100); Platelet Count Result 217 k/mm3 (150-375); Red Blood Count 3.76 M/mm3 (4.6-6.20); White Blood Count 5.7 K/mm3 (4.5-10.0)
[2025-05-25 06:30] LABS: Alanine Aminotransferase 56 U/L (6-50); Albumin Level 3.9 g/dL (3.5-5.1); Alkaline Phosphatase 167 U/L (38-126); Anion Gap 9 mmol/L (4-12); Aspartate Amino Transferase 28 U/L (17-59); Bilirubin,Total 0.7 mg/dL (0.2-1.3); Blood Urea Nitrogen 18 mg/dL (9-20); Calcium 9.9 mg/dL (8.4-10.2); Carbon Dioxide 29 mmol/L (22-30); Chloride 95 mmol/L (98-107); Estimated CRCL calculation 111 ml/min; Estimated Glomerular Filt Rate > 60; Glucose 343 mg/dL (65-110); Lipase 624 U/L (23-300); Magnesium 1.9 mg/dL (1.6-2.3); Potassium 4.2 mmol/L (3.4-5.0); Sodium 133 mmol/L (137-145); Total Protein 7.6 g/dL (6.3-8.2)
[2025-05-25 06:40] LABS: Triglycerides 684 mg/dL (<150)
[2025-05-25] MEDS: INSULIN ASPART (*BKC) 100 UNITS/ML 8 UNITS SUB-Q ×3 (08:10→16:41)
[2025-05-25] MEDS: INSULIN ASPART (*BKC) 100 UNITS/ML SUB-Q ×4 (08:10→21:22)
[2025-05-25] MEDS: INSULIN GLARGINE (*BKC) 100 UNITS/ML 25 UNITS SUB-Q (08:11)
[2025-05-25] MEDS: FENOFIBRATE 145 MG TABLET PO (08:16)
[2025-05-25] MEDS: ATORVASTATIN 40 MG TABLET 80 MG PO (08:16)
[2025-05-25] MEDS: PANTOPRAZOLE SODIUM IV 40 MG VIAL IV PUSH ×2 (08:21→21:28)
[2025-05-25] MEDS: INSULIN GLARGINE (*BKC) 100 UNITS/ML SUB-Q (12:36)
[2025-05-25 14:00] VITALS: BP 131/73; PULSE 93; RESP 18; TEMP 35.8; O2SAT 97
--- NOTE | 2025-05-25 15:04 | PM.IMPN ---
Progress Note: A&P Assessment and Plan (1) DKA (diabetic ketoacidosis): Qualifiers: Diabetes mellitus type: type 2 Diabetes mellitus complication detail: without coma Qualified Code(s): E11.10 - Type 2 diabetes mellitus with ketoacidosis without coma Code(s): E11.10 - Type 2 diabetes mellitus with ketoacidosis without coma Status: Acute Assessment and Plan: S/p insulin infusion and IVF Contineu lantus 20 units, Premeal 5 units and SSI with accucheks and monit r Patient has been seen by music educator and dietitian. consistent carbohydrate diet (2) DM2 (diabetes mellitus, type 2): Qualifiers: Diabetes mellitus equipment operator intermodal yard insulin use: without skilled nursing use Diabetes mellitus complication status: with ketoacidosis Diabetes mellitus complication detail: without coma Qualified Code(s): E11.10 - Type 2 diabetes mellitus with ketoacidosis without coma Code(s): E11.9 - Type 2 diabetes mellitus without complications Status: Acute Assessment and Plan: Patient stated that he was diagnosed with diabetes 3-4 months ago but not on any treatment right now. Patient used to be on metformin -hemoglobin A1c this admission is 11.7 continue above care ordered insulin antibodies to rule out type 1 diabetes. With concurrent hypothyroidism early in his life, autoimmunity is also possible. c peptide level came back at 2.7 which indicates some islet function is still intact. he is diagnostic of metabolic syndrome with triglyceridemia, diabetes and increased waist circumference (3) Hypertriglyceridemia: Code(s): E78.1 - Pure hyperglyceridemia Status: Acute Assessment and Plan: Patient has history of hypertriglyceridemia and was on fenofibric acid and statin in the past but has not taken anything in last 3-4 months. Hypertriglyceridemia with triglycerides level >2625 on presentation which is Likely the cause of his pancreatitis He was started on insulin infusion along with IV fluids with dextrose and he is He is clinically improved and feels better. Triglyceride level is down to be less than 1000 Transitioned to subcutaneous insulin and discontinue IV fluids with dextrose. Continue monitor triglyceride levels Transition to low-fat diet Contain fenofibrate and statin Goal of TG <500 for discharge (4) REGULO (acute kidney injury): Code(s): N17.9 - Acute kidney failure, unspecified Status: Acute Assessment and Plan: Acute kidney injury, likely related to hypovolemia,, inflammatory changes related to pancreatitis resolved s/p IVF (5) Hyperkalemia: Code(s): E87.5 - Hyperkalemia Status: Acute Assessment and Plan: Hyperkalemia likely is multifactorial, acute kidney injury, metabolic ketoacidosis due DKA -initial pH was 6.96, patient received 3 amps of bicarb, Lokelma, insulin and D50 resolved (6) HLD (hyperlipidemia): Qualifiers: Hyperlipidemia type: unspecified Qualified Code(s): E78.5 - Hyperlipidemia, unspecified Code(s): E78.5 - Hyperlipidemia, unspecified Status: Acute Assessment and Plan: Continue statin (7) Pancreatitis: Qualifiers: Acute pancreatitis complication: no infection or necrosis Chronicity: acute Pancreatitis type: unspecified pancreatitis type Qualified Code(s): K85.90 - Acute pancreatitis without necrosis or infection, unspecified Code(s): K85.90 - Acute pancreatitis without necrosis or infection, unspecified Status: Acute Assessment and Plan: Acute pancreatitis related to hypertriglyceridemia Improved Advance diet to low-fat Pain control continue FEnofibrate and Lipitor as above (8) Electrolyte abnormality: Code(s): E87.8 - Other disorders of electrolyte and fluid balance, not elsewhere classified Status: Acute Assessment and Plan: Potassium replacement ordered Monitor electrolytes (9) Hypothyroidism: Code(s): E03.9 - Hypothyroidism, unspecified Status: Acute Assessment and Plan: Resume levothyroxine Thyroid function test reviewed (10) Bipolar mood disorder: Code(s): F31.9 - Bipolar disorder, unspecified Status: Acute Assessment and Plan: Patient has a distant history of bipolar mood disorder requiring hospitalization age of 17. He states he is not on any treatment for last 20 years. Patient's mother is adamant the patient is depressed with episodes of gucci. Patient at this time on exam and during my interview does not exhibit any signs of gucci and does not appear overtly depressed. He also denies any suicidal homicidal ideation per Heading And Priming Tool Setter eval Psych consulted (11) Scrotal irritation: Code(s): N50.89 - Other specified disorders of the male genital organs Status: Acute Assessment and Plan: Complained of scrotal discomfort in the ICU no abnormality on exam scrotal US ordered by teamcenter consultant which was unremarkable Plan DVT prophylaxis: Heparin Stress ulcer prophylaxis:Protonix Nutrition: Advance to low-fat consistent carbohydrate diet Code Status: Full Code Subjective Date/time seen: 05/25/25 15:04 Interval history: No overnight events. Feeling better discussed the blood sugar trend Review of Systems Review of Systems: All systems reviewed & are unremarkable except as noted in HPI and below Exam Narrative: General: Well appearing gentleman, acute distress HEENT:? Pupils equal and reactive, sclera is clear, moist oral mucous Neck:? Supple Respiratory:?Clear to auscultation bilaterally, no wheezing or rales Cardiac:? Regular rate and rhythm Abdomen:? Nontender, soft, not distended Extremities:? No edema, palpable pedal pulse Neuro:? Patient is awake, alert, answers to questions appropriately and follows commands Skin:? No skin lesions noted Psych:? Normal orientation, normal speech and affect Objective Data Vital Signs Vital Signs: Vital Signs - 24 hr 05/24/25 21:30 05/25/25 05:57 05/25/25 14:00 Temperature 98.2 F 97.2 F L 96.4 F L Pulse Rate 73 81 93 Respiratory Rate 18 18 18 Blood Pressure 165/79 H 116/75 131/73 Pulse Oximetry 97 99 97 Intake/Output Intake/Output: Intake & Output 05/22/25 05/23/25 05/24/25 05/25/25 23:59 23:59 23:59 23:59 Intake Total 3590.5 3251.2 4890 1580 Output Total 7200 3850 3 Balance -3609.5 -598.8 4890 1577 Meds/Results Medications: Active Medications Generic Name Dose Route Start Last Admin Trade Name Freq PRN Reason Stop Dose Admin Acetaminophen 650 mg 05/19/25 12:55 05/24/25 20:22 Acetaminophen 325 Mg Tablet PO 650 mg Q4H PRN Administration Mild Pain (1-3) or Fever Atorvastatin Calcium 80 mg 05/21/25 09:00 05/25/25 08:16 Atorvastatin 40 Mg Tablet PO 80 mg DAILY BEBETO Administration Dextrose 12.5 gm 05/19/25 12:14 Dextrose 50% 25 Gm/50 Ml Syringe IV PUSH PRN PRN Hypoglycemia Protocol Fenofibrate 145 mg 05/21/25 09:00 05/25/25 08:16 Fenofibrate 145 Mg Tablet PO 145 mg QAM BEBETO Administration Glucagon 1 mg 05/19/25 12:14 Glucagon For Inj 1 Mg Vial IM PRN PRN Hypoglycemia Protocol Glucose 15 gm 05/19/25 12:14 Glucose Oral Gel 15 Gm Of Glucse In 37.5 Gm Tube PO PRN PRN Hypoglycemia Protocol Heparin Sodium (Porcine) 5,000 units 05/19/25 22:00 05/25/25 12:27 Heparin Sodium 5,000 Units/Ml Vial SUB-Q Not Given Q8HR BEBETO Dextrose 1,000 mls @ 100 mls/hr 05/19/25 12:14 Dextrose 5% 1,000 Ml IVPB PRN PRN Hypoglycemia Protocol Insulin Aspart 3 - 6 units 05/23/25 08:00 05/25/25 11:41 Insulin Aspart (*Bkc) 100 Units/Ml SUB-Q 6 units TIDWM BEBETO Administration Protocol Insulin Aspart 1 - 3 units 05/23/25 21:00 05/24/25 20:24 Insulin Aspart (*Bkc) 100 Units/Ml SUB-Q 3 units HS BEBETO Administration Protocol Insulin Aspart 8 units 05/24/25 17:00 05/25/25 11:42 Insulin Aspart (*Bkc) 100 Units/Ml SUB-Q 8 units TIDWM BEBETO Administration Insulin Glargine 25 units 05/25/25 09:00 05/25/25 08:11 Insulin Glargine (*Bkc) 100 Units/Ml SUB-Q 25 units QAM BEBETO Administration Levothyroxine Sodium 75 mcg 05/22/25 06:30 05/25/25 05:48 Levothyroxine Sodium 75 Mcg Tablet PO 75 mcg DAILY@0630 BEBETO Administration Ondansetron HCl 4 mg 05/19/25 12:55 05/20/25 08:50 Ondansetron Inj 4 Mg/2 Ml Vial IV PUSH 4 mg Q4H PRN Administration Nausea Pantoprazole Sodium 40 mg 05/20/25 09:00 05/25/25 08:21 Pantoprazole Sodium Iv 40 Mg Vial IV PUSH 40 mg Q12H BEBETO Administration Polyethylene Glycol 17 gm 05/21/25 09:00 05/25/25 08:15 Polyethylene Glycol 3350 17 Gm Powd.Pack PO 17 gm QAM BEBETO Administration Radiology Results: ITS Impressions Chest X-Ray 05/19/25 12:24 IMPRESSION: 1. No acute cardiopulmonary findings given portable technique. Abdomen/Pelvis CT 05/19/25 12:43 IMPRESSION: 1. Severe pancreatitis and/or gastroduodenitis. Abdomen X-Ray 05/21/25 13:15 Impression: 1. Nonspecific bowel gas pattern Scrotum Ultrasound 05/23/25 16:53 Impression: No acute abnormality. Labs Labs: Laboratory Results - last 24 hr 05/24/25 05/24/25 05/24/25 05:53 16:47 20:21 WBC RBC Hgb Hct MCV MCH MCHC RDW Plt Count MPV Sodium Potassium Chloride Carbon Dioxide Anion Gap BUN Creatinine Estim Creat Clear Calc Estimated GFR Glucose POC Capillary Glucose 395 H 399 H C-Peptide 2.7 Calcium Phosphorus Magnesium Total Bilirubin AST ALT Alkaline Phosphatase Total Protein Albumin Triglycerides Lipase 05/24/25 05/25/25 05/25/25 21:28 05:53 06:07 WBC 5.7 RBC 3.76 L Hgb 10.9 L Hct 33.7 L MCV 89.6 MCH 29.0 MCHC 32.3 RDW 13.6 Plt Count 217 MPV 9.8 Sodium 133 L Potassium 4.2 Chloride 95 L Carbon Dioxide 29 Anion Gap 9 BUN 18 Creatinine 0.88 Estim Creat Clear Calc 111 Estimated GFR > 60 Glucose 343 H POC Capillary Glucose 392 H 352 H C-Peptide Calcium 9.9 Phosphorus 4.6 H Magnesium 1.9 Total Bilirubin 0.7 AST 28 ALT 56 H Alkaline Phosphatase 167 H Total Protein 7.6 Albumin 3.9 Triglycerides 684 H Lipase 624 H 05/25/25 05/25/25 07:59 11:05 WBC RBC Hgb Hct MCV MCH MCHC RDW Plt Count MPV Sodium Potassium Chloride Carbon Dioxide Anion Gap BUN Creatinine Estim Creat Clear Calc Estimated GFR Glucose POC Capillary Glucose 347 H 353 H C-Peptide Calcium Phosphorus Magnesium Total Bilirubin AST ALT Alkaline Phosphatase Total Protein Albumin Triglycerides Lipase
[2025-05-25 20:44] VITALS: BP 134/78; PULSE 82; RESP 20; TEMP 36.7; O2SAT 100
[2025-05-25 21:30] VITALS: O2SAT 100
--- NOTE | 2025-05-26 01:02 | PC.NURSE ---
Daylight Savings Time For Daylight Savings Time Ending in the Fall - Clocks are moved back. For Daylight Savings Time Beginning in the Spring - Clocks are moved ahead. For [facility], the time of change occurs at 0200 hrs. Time is taken from the bistro server. This entry on the patient's chart recognizes the change in time reflected during documentation. Example: 2 entries for vital signs may be charted for 0200 hrs.
[2025-05-26] MEDS: LEVOTHYROXINE SODIUM 75 MCG TABLET PO (05:43)
[2025-05-26 05:59] LABS: Hematocrit 30.8 % (42.0-52.0); Hemoglobin 10.1 g/dL (14.0-18.0); Mean Corpuscular HGB Conc 32.8 g/dl (32-36); Mean Corpuscular Hemoglobin 28.9 pg (26-34); Mean Corpuscular Volume 88.3 fl (80-100); Platelet Count Result 222 k/mm3 (150-375); Red Blood Count 3.49 M/mm3 (4.6-6.20); White Blood Count 6.1 K/mm3 (4.5-10.0)
[2025-05-26 06:00] VITALS: BP 111/66; PULSE 81; RESP 18; TEMP 36.8; O2SAT 98
[2025-05-26 06:30] LABS: Alanine Aminotransferase 42 U/L (6-50); Albumin Level 3.7 g/dL (3.5-5.1); Alkaline Phosphatase 146 U/L (38-126); Anion Gap 8 mmol/L (4-12); Aspartate Amino Transferase 25 U/L (17-59); Bilirubin,Total 0.6 mg/dL (0.2-1.3); Blood Urea Nitrogen 16 mg/dL (9-20); Calcium 9.5 mg/dL (8.4-10.2); Carbon Dioxide 26 mmol/L (22-30); Chloride 98 mmol/L (98-107); Estimated CRCL calculation 111 ml/min; Estimated Glomerular Filt Rate > 60; Glucose 271 mg/dL (65-110); Lipase 698 U/L (23-300); Magnesium 1.8 mg/dL (1.6-2.3); Potassium 4.1 mmol/L (3.4-5.0); Sodium 132 mmol/L (137-145); Total Protein 7.2 g/dL (6.3-8.2)
[2025-05-26 06:31] LABS: Triglycerides 565 mg/dL (<150)
[2025-05-26] MEDS: FENOFIBRATE 145 MG TABLET PO (07:47)
[2025-05-26] MEDS: PANTOPRAZOLE SODIUM IV 40 MG VIAL IV PUSH ×2 (07:48→20:41)
[2025-05-26] MEDS: ATORVASTATIN 40 MG TABLET 80 MG PO (07:48)
[2025-05-26] MEDS: INSULIN ASPART (*BKC) 100 UNITS/ML 10 UNITS SUB-Q ×3 (07:49→16:37)
[2025-05-26] MEDS: INSULIN GLARGINE (*BKC) 100 UNITS/ML 30 UNITS SUB-Q (07:49)
[2025-05-26] MEDS: INSULIN ASPART (*BKC) 100 UNITS/ML SUB-Q ×3 (07:50→20:41)
[2025-05-26 08:15] VITALS: PULSE 81; RESP 18; O2SAT 98
[2025-05-26 14:00] VITALS: BP 131/94; PULSE 128; RESP 18; TEMP 36.6; O2SAT 100
[2025-05-26 14:14] VITALS: PULSE 98
--- NOTE | 2025-05-26 16:35 | P.PNIM_ITS ---
Progress Note: A&P Assessment and Plan (1) DKA (diabetic ketoacidosis): Qualifiers: Diabetes mellitus type: type 2 Diabetes mellitus complication detail: without coma Qualified Code(s): E11.10 - Type 2 diabetes mellitus with ketoacidosis without coma Code(s): E11.10 - Type 2 diabetes mellitus with ketoacidosis without coma Status: Acute Assessment and Plan: S/p insulin infusion and IVF Patient has been seen by tender coordinator and dietitian. Consistent carbohydrate diet (2) DM2 (diabetes mellitus, type 2): Qualifiers: Diabetes mellitus fci insulin use: without intermediate school teacher use Diabetes mellitus complication status: with ketoacidosis Diabetes mellitus complication detail: without coma Qualified Code(s): E11.10 - Type 2 diabetes mellitus with ketoacidosis without coma Code(s): E11.9 - Type 2 diabetes mellitus without complications Status: Acute Assessment and Plan: Patient stated that he was diagnosed with diabetes 3-4 months ago but not on any treatment right now. Patient used to be on metformin -hemoglobin A1c this admission is 11.7 continue above care ordered insulin antibodies to rule out type 1 diabetes. With concurrent hypot hyroidism early in his life, autoimmunity is also possible. c peptide level came back at 2.7 which indicates some islet function is still intact. He has metabolic syndrome with triglyceridemia, diabetes and increased waist circumference 11/2 FBS 271, increased basal and pre-meal insulin; detailed discussion re: C- peptide results, pending insulin Ab results, diet, exercise, medications (3) Pancreatitis: Qualifiers: Acute pancreatitis complication: no infection or necrosis Chronicity: acute Pancreatitis type: unspecified pancreatitis type Qualified Code(s): K85.90 - Acute pancreatitis without necrosis or infection, unspecified Code(s): K85.90 - Acute pancreatitis without necrosis or infection, unspecified Status: Acute Assessment and Plan: Acute pancreatitis related to hypertriglyceridemia Improved Continue low-fat diet Analgesics prn Continue efforts to improve control of glucose, triglycerides (4) Hypertriglyceridemia: Code(s): E78.1 - Pure hyperglyceridemia Status: Acute Assessment and Plan: Patient has history of hypertriglyceridemia and was on fenofibric acid and statin in the past but has not taken anything in last 3-4 months. Hypertriglyceridemia with triglycerides level >2625 on presentation which is Likely the cause of his pancreatitis He was started on insulin infusion along with IV fluids with dextrose and he is He is clinically improved and feels better. Triglyceride level is down to be less than 1000 Transitioned to subcutaneous insulin and discontinue IV fluids with dextrose. Continue monitor triglyceride levels Transition to low-fat diet Contain fenofibrate and statin Goal of TG <500 for discharge 05/26 added omega-3 (Lovaza) 2 gm bid, increased insulin from Lantus 30 & mealtime 10 to Lantus 38 & mealtime 12 (5) REGULO (acute kidney injury): Code(s): N17.9 - Acute kidney failure, unspecified Status: Acute Assessment and Plan: Acute kidney injury, likely related to hypovolemia,, inflammatory changes related to pancreatitis resolved s/p IVF (6) Hyperkalemia: Code(s): E87.5 - Hyperkalemia Status: Acute Assessment and Plan: Hyperkalemia likely is multifactorial, acute kidney injury, metabolic ketoacidosis due DKA -initial pH was 6.96, patient received 3 amps of bicarb, Lokelma, insulin and D50 resolved (7) HLD (hyperlipidemia): Qualifiers: Hyperlipidemia type: unspecified Qualified Code(s): E78.5 - Hyperlipidemia, unspecified Code(s): E78.5 - Hyperlipidemia, unspecified Status: Acute Assessment and Plan: Continue statin (8) Electrolyte abnormality: Code(s): E87.8 - Other disorders of electrolyte and fluid balance, not elsewhere classified Status: Acute Assessment and Plan: Potassium replacement ordered Resolved (9) Hypothyroidism: Code(s): E03.9 - Hypothyroidism, unspecified Status: Acute Assessment and Plan: Continue levothyroxine (10) Bipolar mood disorder: Code(s): F31.9 - Bipolar disorder, unspecified Status: Acute Assessment and Plan: Patient has a distant history of bipolar mood disorder requiring hospitalization age of 17. He states he is not on any treatment for last 20 years. Patient's mother is adamant the patient is depressed with episodes of gucci. No current gucci or suicidal ideation. However, grandiose thoughts or gucci could have catalyzed his decisions about dietary indiscretions and medication non-adherence Psych consulted (11) Scrotal irritation: Code(s): N50.89 - Other specified disorders of the male genital organs Status: Acute Assessment and Plan: Complained of scrotal discomfort in the ICU no abnormality on exam scrotal US ordered by integration specialist which was unremarkable Plan DVT prophylaxis: Heparin Stress ulcer prophylaxis:Protonix Nutrition: Advance to low-fat consistent carbohydrate diet Code Status: Full Code Subjective Date/time seen: 05/26/25 16:35 Interval history: Continues to have mild epigastric discomfort with eating. No nausea vomiting or change in bowel or bladder function. No chest pain or shortness of breath. Review of Systems Review of Systems: All systems reviewed & are unremarkable except as noted in HPI and below Exam Narrative: HEENT: PERRL, sclerae nonicteric, pharyngeal mucosa pink and intact NECK: No JVD, adenopathy, or thyromegaly CHEST: Clear to auscultation. Normal effort HEART: NL S1/S2, regular, no murmur ABDOMEN: BS+, soft, mild epigastric tenderness, no mass, no bruits EXTREMITIES: No cyanosis, edema, or clubbing NEUROLOGIC: CN intact and symmetric to inspection MUSCULOSKELETAL: Tone and strength symmetric PSYCH: Alert. Oriented to person, place, and time Objective Data Vital Signs Vital Signs: Vital Signs - 24 hr 05/25/25 20:44 05/25/25 21:30 05/26/25 06:00 Temperature 98.0 F 98.2 F Pulse Rate 82 81 Respiratory Rate 20 18 Blood Pressure 134/78 111/66 Pulse Oximetry 100 100 98 Oxygen Delivery Room Air Fraction of Inspired Oxygen 05/26/25 08:15 05/26/25 14:00 05/26/25 14:14 Temperature 97.8 F Pulse Rate 81 128 H 98 Respiratory Rate 18 18 Blood Pressure 131/94 H Pulse Oximetry 98 100 Oxygen Delivery Room Air Fraction of Inspired Oxygen 21 Intake/Output Intake/Output: Intake & Output 05/23/25 05/24/25 05/25/25 05/26/25 23:59 23:59 23:59 22:59 Intake Total 3251.2 4890 1820 420 Output Total 3850 3 Balance -598.8 4890 1817 420 Meds/Results Medications: Active Medications Generic Name Dose Route Start Last Admin Trade Name Freq PRN Reason Stop Dose Admin Acetaminophen 650 mg 05/19/25 12:55 05/24/25 20:22 Acetaminophen 325 Mg Tablet PO 650 mg Q4H PRN Administration Mild Pain (1-3) or Fever Atorvastatin Calcium 80 mg 05/21/25 09:00 05/26/25 07:48 Atorvastatin 40 Mg Tablet PO 80 mg DAILY BEBETO Administration Dextrose 12.5 gm 05/19/25 12:14 Dextrose 50% 25 Gm/50 Ml Syringe IV PUSH PRN PRN Hypoglycemia Protocol Fenofibrate 145 mg 05/21/25 09:00 05/26/25 07:47 Fenofibrate 145 Mg Tablet PO 145 mg QAM BEBETO Administration Glucagon 1 mg 05/19/25 12:14 Glucagon For Inj 1 Mg Vial IM PRN PRN Hypoglycemia Protocol Glucose 15 gm 05/19/25 12:14 Glucose Oral Gel 15 Gm Of Glucse In 37.5 Gm Tube PO PRN PRN Hypoglycemia Protocol Heparin Sodium (Porcine) 5,000 units 05/19/25 22:00 05/26/25 14:38 Heparin Sodium 5,000 Units/Ml Vial SUB-Q Not Given Q8HR BEBETO Dextrose 1,000 mls @ 100 mls/hr 05/19/25 12:14 Dextrose 5% 1,000 Ml IVPB PRN PRN Hypoglycemia Protocol Insulin Aspart 3 - 6 units 05/23/25 08:00 05/26/25 11:36 Insulin Aspart (*Bkc) 100 Units/Ml SUB-Q 4 units TIDWM BEBETO Administration Protocol Insulin Aspart 1 - 3 units 05/23/25 21:00 05/25/25 21:22 Insulin Aspart (*Bkc) 100 Units/Ml SUB-Q 2 units HS BEBETO Administration Protocol Insulin Aspart 10 units 05/26/25 08:00 05/26/25 11:35 Insulin Aspart (*Bkc) 100 Units/Ml SUB-Q 10 units TIDWM BEBETO Administration Insulin Glargine 30 units 05/26/25 09:00 05/26/25 07:49 Insulin Glargine (*Bkc) 100 Units/Ml SUB-Q 30 units QAM BEBETO Administration Levothyroxine Sodium 75 mcg 05/22/25 06:30 05/26/25 05:43 Levothyroxine Sodium 75 Mcg Tablet PO 75 mcg DAILY@0630 BEBETO Administration Ondansetron HCl 4 mg 05/19/25 12:55 05/20/25 08:50 Ondansetron Inj 4 Mg/2 Ml Vial IV PUSH 4 mg Q4H PRN Administration Nausea Pantoprazole Sodium 40 mg 05/20/25 09:00 05/26/25 07:48 Pantoprazole Sodium Iv 40 Mg Vial IV PUSH 40 mg Q12H BEBETO Administration Polyethylene Glycol 17 gm 05/21/25 09:00 05/26/25 07:48 Polyethylene Glycol 3350 17 Gm Powd.Pack PO 17 gm QAM BEBETO Administration Radiology Results: ITS Impressions Chest X-Ray 05/19/25 12:24 IMPRESSION: 1. No acute cardiopulmonary findings given portable technique. Abdomen/Pelvis CT 05/19/25 12:43 IMPRESSION: 1. Severe pancreatitis and/or gastroduodenitis. Abdomen X-Ray 05/21/25 13:15 Impression: 1. Nonspecific bowel gas pattern Scrotum Ultrasound 05/23/25 16:53 Impression: No acute abnormality. Labs Labs: Laboratory Results - last 24 hr 05/25/25 05/26/25 05/26/25 20:00 05:44 07:43 WBC 6.1 RBC 3.49 L Hgb 10.1 L Hct 30.8 L MCV 88.3 MCH 28.9 MCHC 32.8 RDW 13.1 Plt Count 222 MPV 9.8 Sodium 132 L Potassium 4.1 Chloride 98 Carbon Dioxide 26 Anion Gap 8 BUN 16 Creatinine 0.88 Estim Creat Clear Calc 111 Estimated GFR > 60 Glucose 271 H POC Capillary Glucose 329 H 288 H Calcium 9.5 Phosphorus 4.7 H Magnesium 1.8 Total Bilirubin 0.6 AST 25 ALT 42 Alkaline Phosphatase 146 H Total Protein 7.2 Albumin 3.7 Triglycerides 565 H Lipase 698 H 05/26/25 11:29 WBC RBC Hgb Hct MCV MCH MCHC RDW Plt Count MPV Sodium Potassium Chloride Carbon Dioxide Anion Gap BUN Creatinine Estim Creat Clear Calc Estimated GFR Glucose POC Capillary Glucose 288 H Calcium Phosphorus Magnesium Total Bilirubin AST ALT Alkaline Phosphatase Total Protein Albumin Triglycerides Lipase
[2025-05-26] MEDS: OMEGA 3 POLYUNSAT FATTY ACIDS 1 GM CAP 2 GM PO (17:01)
[2025-05-26 19:45] VITALS: BP 119/80; PULSE 93; RESP 18; TEMP 36.1; O2SAT 98
[2025-05-27 05:44] VITALS: BP 116/73; PULSE 79; RESP 16; TEMP 36.4; O2SAT 97
[2025-05-27] MEDS: LEVOTHYROXINE SODIUM 75 MCG TABLET PO (05:47)
[2025-05-27 05:54] LABS: Hematocrit 29.7 % (42.0-52.0); Hemoglobin 9.6 g/dL (14.0-18.0); Mean Corpuscular HGB Conc 32.3 g/dl (32-36); Mean Corpuscular Hemoglobin 29.0 pg (26-34); Mean Corpuscular Volume 89.7 fl (80-100); Platelet Count Result 209 k/mm3 (150-375); Red Blood Count 3.31 M/mm3 (4.6-6.20); White Blood Count 6.5 K/mm3 (4.5-10.0)
[2025-05-27 06:16] LABS: Alanine Aminotransferase 31 U/L (6-50); Albumin Level 3.4 g/dL (3.5-5.1); Alkaline Phosphatase 118 U/L (38-126); Anion Gap 9 mmol/L (4-12); Aspartate Amino Transferase 22 U/L (17-59); Bilirubin,Total 0.4 mg/dL (0.2-1.3); Blood Urea Nitrogen 17 mg/dL (9-20); Calcium 9.2 mg/dL (8.4-10.2); Carbon Dioxide 25 mmol/L (22-30); Chloride 101 mmol/L (98-107); Estimated CRCL calculation 117 ml/min; Estimated Glomerular Filt Rate > 60; Glucose 226 mg/dL (65-110); Magnesium 1.9 mg/dL (1.6-2.3); Potassium 4.0 mmol/L (3.4-5.0); Sodium 135 mmol/L (137-145); Total Protein 6.9 g/dL (6.3-8.2); Triglycerides 447 mg/dL (<150)
[2025-05-27] MEDS: INSULIN ASPART (*BKC) 100 UNITS/ML SUB-Q ×2 (07:31→12:16)
[2025-05-27] MEDS: INSULIN ASPART (*BKC) 100 UNITS/ML 12 UNITS SUB-Q ×2 (07:32→12:15)
[2025-05-27] MEDS: INSULIN GLARGINE (*BKC) 100 UNITS/ML 38 UNITS SUB-Q (08:36)
[2025-05-27] MEDS: FENOFIBRATE 145 MG TABLET PO (08:36)
[2025-05-27] MEDS: ATORVASTATIN 40 MG TABLET 80 MG PO (08:36)
[2025-05-27] MEDS: PANTOPRAZOLE SODIUM IV 40 MG VIAL IV PUSH (08:36)
[2025-05-27] MEDS: OMEGA 3 POLYUNSAT FATTY ACIDS 1 GM CAP 2 GM PO (08:36)
--- NOTE | 2025-05-27 11:35 | PCNWS ---
Weekly nutritional screen. Patient is tolerating current diabetic diet with adequate intake 100%. Education provided on diabetic diet. No weight loss reported. No nutritional recommendations at this time.
--- NOTE | 2025-05-27 12:18 | P.DS_ITS ---
DS: Admitting Diagnosis Discharge Date 05/27/25 Admitting Diagnosis abd pain DS: Discharge Diagnosis Discharge Diagnosis (1) DKA (diabetic ketoacidosis): Qualifiers: Diabetes mellitus type: type 2 Diabetes mellitus complication detail: without coma Qualified Code(s): E11.10 - Type 2 diabetes mellitus with ketoacidosis without coma Code(s): E11.10 - Type 2 diabetes mellitus with ketoacidosis without coma Status: Acute (2) DM2 (diabetes mellitus, type 2): Qualifiers: Diabetes mellitus termination clerk insulin use: without termination clerk use Diabetes mellitus complication status: with ketoacidosis Diabetes mellitus complication detail: without coma Qualified Code(s): E11.10 - Type 2 diabetes mellitus with ketoacidosis without coma Code(s): E11.9 - Type 2 diabetes mellitus without complications Status: Acute DS: Summary Hospital Course Hospital Course: Reason for Admission The patient was admitted for evaluation and management of severe abdominal pain, nausea, vomiting, and altered mental status. He was found to be in diabetic ketoacidosis (DKA) with associated acute pancreatitis, hypertriglyceridemia, and acute kidney injury. Hospital Course 1. Diabetic Ketoacidosis (DKA) ? Type 2 Diabetes Mellitus * Presented with severe hyperglycemia (glucose 798 mg/dL), metabolic acidosis (pH 6.969), and [place] respirations. * Managed with IV insulin infusion, aggressive IV fluids, electrolyte correction, and DKA protocol. * Anion gap closed, transitioned to subcutaneous insulin regimen (Lantus and pre-meal insulin). * Diabetes education and dietary counseling provided. * Discharged on a consistent carbohydrate diet and subcutaneous insulin. 2. Acute Pancreatitis (Hypertriglyceridemia-Induced) * CT abdomen/pelvis: Severe pancreatitis and/or gastroduodenitis. * Lipase markedly elevated (15,776 U/L), triglycerides >2,625 mg/dL on admissi on. * Managed with NPO status, IV fluids, insulin infusion (for both DKA and triglyceride lowering), and pain control. * Triglycerides improved to <1,000 mg/dL; transitioned to low-fat diet, fenofibrate, statin, and omega-3 fatty acids (Lovaza). * Pancreatitis resolved; patient tolerating diet at discharge. 3. Hypertriglyceridemia & Hyperlipidemia * History of hypertriglyceridemia, previously on fenofibrate and statin, non- adherent prior to admission. * Triglycerides improved with insulin, IV fluids, and re-initiation of lipid- lowering therapy. * Discharged on fenofibrate, statin, and omega-3 fatty acids. Triglycerides today is 447 4. Acute Kidney Injury (REGULO), resolved * Initial creatinine 2.74 mg/dL, likely secondary to hypovolemia and pancreatitis. * Responded to IV fluid resuscitation; renal function normalized prior to discharge. 5. Electrolyte Abnormalities * Hyperkalemia (K 7.0 mmol/L) on admission, treated with insulin, dextrose, sodium bicarbonate, calcium gluconate, and Lokelma. * Subsequent hypokalemia managed with replacement. * Other electrolyte disturbances (hypocalcemia, hypomagnesemia, hypophosphatemia) corrected as needed. 6. Hypothyroidism * History of thyroid dysfunction, off medication prior to admission. * Levothyroxine resumed; thyroid function tests reviewed. 7. Bipolar Mood Disorder * Remote history, no acute psychiatric symptoms during admission. * Psychiatry consulted; patient declined psychiatric eval 8. Scrotal Discomfort * Complaints of scrotal fullness/discomfort, no significant findings on exam or ultrasound. Discharge Medications * Insulin regimen:?Lantus 38 units daily, pre-meal insulin 12 units, sliding scale as needed. * Fenofibrate?145mg * Atorvastatin?80mg * [place]-3 fatty acids (Lovaza)?2 gm BID * Levothyroxine?75mg * Metformin 500mg bid Discharge Instructions * Diet:?Low-fat, consistent carbohydrate diet. * Activity:?As tolerated; up in chair, ambulate as able. * Follow-up: * Endocrinology for diabetes management and possible further evaluation for autoimmune diabetes (pending insulin antibody results). * Primary care for ongoing management of metabolic syndrome and medication titration. * Lipid clinic or cardiology as indicated for hypertriglyceridemia. * Psychiatry follow-up if mood symptoms recur. * Monitoring: * Home blood glucose monitoring with log. * Monitor for symptoms of hypoglycemia, hyperglycemia, abdominal pain, or recurrent pancreatitis. * Routine labs: fasting lipid panel, renal function, electrolytes, TSH as outpatient. Condition at Discharge * Clinically improved, tolerating diet, pain controlled, hemodynamically stable, and ambulating independently. Summary of Hospital Course Mr. Marinelli was admitted with severe DKA, hypertriglyceridemia-induced pancreatitis, and REGULO. He required ICU-level care with insulin infusion, IV fluids, and close monitoring. His metabolic derangements resolved with ap propriate therapy. He was transitioned to subcutaneous insulin, lipid-lowering therapy, and a low-fat, consistent carbohydrate diet. He is stable for discharge with close outpatient follow-up arranged. F/u closely with PCP, discussed with patient importance of follow up Time Spent with Patient Time attestation: Total time spent providing and/or coordinating discharge services: DS: Data Data Completed and Pending Labs on day of discharge: Labs from last 24 hours 05/27/25 05/27/2525 11:29 07:25 05:23 WBC 6.5 RBC 3.31 L Hgb 9.6 L Hct 29.7 L MCV 89.7 MCH 29.0 MCHC 32.3 RDW 13.0 Plt Count 209 MPV 10.0 Sodium 135 L Potassium 4.0 Chloride 101 Carbon Dioxide 25 Anion Gap 9 BUN 17 Creatinine 0.83 Estim Creat Clear Calc 117 Estimated GFR > 60 Glucose 226 H POC Capillary Glucose 233 H 220 H Calcium 9.2 Phosphorus 5.1 H Magnesium 1.9 Total Bilirubin 0.4 AST 22 ALT 31 Alkaline Phosphatase 118 Total Protein 6.9 Albumin 3.4 L Triglycerides 447 H 05/26/25 05/26/25 19:45 16:36 WBC RBC Hgb Hct MCV MCH MCHC RDW Plt Count MPV Sodium Potassium Chloride Carbon Dioxide Anion Gap BUN Creatinine Estim Creat Clear Calc Estimated GFR Glucose POC Capillary Glucose 235 H 167 H Calcium Phosphorus Magnesium Total Bilirubin AST ALT Alkaline Phosphatase Total Protein Albumin Triglycerides Discharge Plan Discharge Attending physician on discharge: Vika Weber Consulting providers: Janette Martinez; Adarsh Forbes Discharging Clinician: Vika Weber Anticipated Discharge Date/Time: 05/27/25 12:02 Patient Disposition: Home Activity: as tolerated Diet: as tolerated, diabetic and low fat Patient Instructions: Antibiotic Form, Pancreatitis (DC), Low Fat Diet (DC), Basic Carbohydrate Counting (DC), Foot Ulcers in a Person with Diabetes (DC) Patient Language: [place] Stand Alone Forms: General Discharge Information Follow-up/Referrals: Adarsh Forbes MD [Physician, Psychiatry] Referral Note: F/u with Psych as instructed PHYSICIAN,IT RISK ADVISOR [Primary Care Provider, Internal Medicine] Referral Note: F/u with PCP in 3-5 days Discharge Medications: New (DME) blood-glucose meter [OneTouch Verio Flex meter] Misc Qty: 1 0RF Rx Instructions: May substitute to in-stock meter and/or covered by insurance. Use As Directed (DME) OneTouch Verio test strips Strip Qty: 1 0RF Rx Instructions: May substitute to in-stock and/or covered by insurance strips. Use As Directed (DME) pen needle, diabetic 32 gauge x 5/32 Needle Qty: 1 0RF Rx Instructions: As Directed (DME) lancets [OneTouch Delica Plus Lancet] 30 gauge misc Qty: 1 0RF Rx Instructions: May substitute to in-stock and/or covered by insurance lancets. Use As Directed (DME) insulin syringe,safety needle 0.5 mL 31 gauge x 5/16 Syringe Qty: 1 0RF Rx Instructions: As Directed levothyroxine [Synthroid] 75 mcg Tablet 75 mcg PO DAILY@0630 30 Days Qty: 30 1RF atorvastatin 40 mg Tablet 80 mg PO DAILY 30 Days Qty: 60 1RF fenofibrate nanocrystallized 145 mg Tablet 145 mg PO QAM 30 Days Qty: 30 1RF omega-3 acid ethyl esters 1 gram Capsule 2 g PO BID 30 Days Qty: 120 1RF metformin 500 mg tablet 500 mg PO BID 30 Days Qty: 60 1RF insulin glargine [Lantus Solostar U-100 Insulin] 100 unit/mL (3 mL) insulin pen 38 unit subcut QPM Qty: 15 0RF insulin lispro [Humalog KwikPen Insulin] 100 unit/mL insulin pen 1 sliding scale dose subcut USEASDIRECTD Qty: 15 0RF Rx Instructions: 151-200 4 units 201-250 6 units 251-300 8 units >300 give 10 units and Call PCP Humalog KwikPen Insulin 200 unit/mL (3 mL) insulin pen 12 unit subcut TIDWMEAL Qty: 6 0RF Date of admission: 05/19/25 12:55 Primary Care Provider: PHYSICIAN,IT RISK ADVISOR Admitting Provider: Phil Thakkar Attending physician on admission: Phil Thakkar Condition: Serious
[2025-05-27 13:35] VITALS: BP 125/74; PULSE 82; RESP 18; TEMP 36.1; O2SAT 98
--- NOTE | 2025-05-29 16:07 | PCCDE ---
05/29/25: DM Educator attempted courtesy follow up call. outgoing message stating Mailbox is full..... unable to leave message.
== END 2025-05-27 13:40 | disposition home or self-care (01) | DRG 420 ==
LOC: ANHED 11:56 → ANHICU 13:34 → ANH3MEDSUR 05-24 18:49 → ANHICU 05-28 09:23
PROVIDERS: Internal Medicine; Student in an Organized Health Care Education/Training Program; Admitting Provider Internal Medicine; Emergency Provider Student in an Organized Health Care Education/Training Program; Visit Provider Internal Medicine
DX: E11.10 Type 2 diabetes mellitus with ketoacidosis without coma (principal); K85.90 Acute pancreatitis without necrosis or infection, unspecified; K29.90 Gastroduodenitis, unspecified, without bleeding; K70.0 Alcoholic fatty liver; N17.9 Acute kidney failure, unspecified; E78.5 Hyperlipidemia, unspecified; E87.5 Hyperkalemia; E78.1 Pure hyperglyceridemia; E03.9 Hypothyroidism, unspecified; K59.00 Constipation, unspecified; N50.89 Other specified disorders of the male genital organs; Z79.84 Long term (current) use of oral hypoglycemic drugs; Z87.891 Personal history of nicotine dependence
CPT/HCPCS: 36415; 71045; 74018; 74176; 76870; 80048; 80053; 80061; 81001; 82010; 82436; 82550; 82570; 82728; 82803; 82948; 83036; 83540; 83550; 83605; 83690; 83735; 84100; 84133; 84300; 84439; 84443; 84478; 84480; 84681; 85025; 85027; 85999; 86337; 87641; 93005; 93976; 96361; 96374; 96375; 99291; A9270; J0612; J0613; J1644; J1815; J2405; J2470; J3475; J3480; J7030; J7040; J7050; J7120